=== PATIENT | female | born 1975 | race Caucasian/White ===

== ENCOUNTER 2017-04-21 11:46 | Emergency (ER) | payer SELFPAY ==
[2017-04-21] MEDS ORDERED: oxyCODONE/Acetamin 5/325 MG* TAB PO ONE ×2 (12:00→13:12)
[2017-04-21] MEDS ORDERED: LORazepam TAB(*) 1 MG PO ONE (12:00)
[2017-04-21] MEDS ORDERED: oxyCODONE TAB* 5 MG TAB PO ONE (13:13)
[2017-04-21] MEDS ORDERED: Gabapentin CAP(*) 400 MG PO ONE (13:13)
[2017-04-21 13:35] VITALS: BP 135/86
--- NOTE | 2017-04-21 13:53 | ED ---
Idris Hamilton Alfonso, scribed for Angie Vega MD on 04/21/17 at 1228 . Back Pain - HPI Summary HPI Summary: This patient is a 41 year old F BIBA to [facility] with a chief complaint of constant acute on chronic shooting neck, back, and leg pain worse since getting up today. She states my legs gave out and I fell onto the couch. She was taking klonopin 1 mg TID, Percocet 10 mg QID, gabapentin 400 mg BID, and oxycodone 10 mg BID and recently completed these prescriptions. The patient rates the pain 10/10 in severity. Symptoms alleviated by nothing. Patient reports cough, and bilateral LE numbness. Patient denies recent falls, recent trauma, fever, and chills. She reports her significant other in [place] committed suicide 3 weeks ago. - History of Current Complaint Chief Complaint: EDBackInjuryPain Stated Complaint: MHE/BACK PAIN Time Seen by Provider: 04/21/17 11:52 Hx Obtained From: Patient Onset/Duration: Gradual Onset, Still Present, Worse Since - getting up today. , Other - acute on chronic Onset/Duration: Still Present Timing: Constant Back Pain Location: Is Discrete @ - neck, back, and leg pain Severity Currently: Severe Pain Intensity: 10 Pain Scale Used: 0-10 Numeric Character: Sharp - shooting Alleviating Symptom(s): Nothing Associated Signs And Symptoms: Positive: Other - Patient reports cough, and bilateral LE numbness. Patient denies recent falls, recent trauma, fever, and chills. - Allergies/Home Medications Allergies/Adverse Reactions: Allergies Allergy/AdvReac Type Severity Reaction Status Date / Time Pregabalin [From Lyrica] Allergy Anaphylatic Verified 04/21/17 11:59 Shock Home Medications: Home Medications Albuterol HFA INHALER* [Ventolin HFA Inhaler*] 2 puff INH Q4H PRN 04/21/17 [ History Confirmed 04/21/17] Clonazepam [Klonopin] 1 mg PO TID 04/21/17 [History Confirmed 04/21/17] DULoxetine DR CAP* [Cymbalta CAP*] 60 mg PO DAILY 04/21/17 [History Confirmed ] Folic Acid TAB* [Folvite TAB*] 1 mg PO DAILY 04/21/17 [History Confirmed ] Gabapentin CAP(*) [Neurontin 400 mg CAP(*)] 400 mg PO TID 04/21/17 [History Confirmed 04/21/17] Magnesium 500 mg PO DAILY 04/21/17 [History Confirmed 04/21/17] Multiple Vitamins W/ Minerals [Multivitamin Adults] 1 tab PO DAILY 04/21/17 [ History Confirmed 04/21/17] Thiamine HCl [Thiamine] 100 mg PO DAILY 04/21/17 [History Confirmed 04/21/17] Thiamine HCl [Vitamin B-1] 100 mg PO DAILY 04/21/17 [History Confirmed 04/21/17] hydrOXYzine HCL TAB* [Atarax 25 MG TAB*] 25 mg PO BID 04/21/17 [History Confirmed 04/21/17] oxyCODONE SR TAB(*) [Oxycontin 10 mg (*)] 10 mg PO Q12H PRN 04/21/17 [History Confirmed 04/21/17] oxyCODONE TAB* [Roxycodone TAB 5 mg*] 10 mg PO Q4H PRN 04/21/17 [History Confirmed 04/21/17] traZODone TAB* [Desyrel TAB*] 100 mg PO BEDTIME 04/21/17 [History Confirmed ] PMH/Surg Hx/FS Hx/Imm Hx Endocrine/Hematology History: Denies: Hx Diabetes Cardiovascular History: Reports: Hx Hypertension - TAKES MEDICATION Denies: Hx Pacemaker/ICD Musculoskeletal History: Reports: Hx Back Problems Sensory History: Denies: Hx Hearing Aid Psychiatric History: Reports: Hx Panic Disorder - ANXIETY - Surgical History Surgery Procedure, Year, and Place: 07/03 &05/03 [facility]GERY X2. Infectious Disease History: No Infectious Disease History: Denies: Traveled Outside the [place] in Last 30 Days - Family History Known Family History: Negative: Diabetes - Social History Occupation: Unemployed, Disabled Lives: With Family - Sister Alcohol Use: Occasionally Alcohol Amount: "once a month", hx of alcohol abuse Substance Use Type: Reports: None Smoking Status (MU): Heavy Every Day Tobacco Smoker Review of Systems Negative: Fever, Chills Positive: Cough Positive: Other - constant acute on chronic shooting neck, back, and leg pain; negative recent falls, recent trauma Neurological: Other - bilateral LE numbness All Other Systems Reviewed And Are Negative: Yes Physical Exam - Summary Physical Exam Summary: General: Well appearing, no pain distress. Skin: Warm, Skin Color Reflects Adequate Perfusion, Dry Eyes: EOMI, JASMYNE ENT: Pharynx normal, TMs normal Neck: Supple, nontender Respiratory: CTA, breath sounds present, no rhonchi, no wheezes, no rales Cardiovascular: RRR, no murmur, no rub, no gallop Abdomen: Soft, nontender, Non-distended, no guarding, no rebound Bowel: Present Musculoskeletal: FAHAD. No edema. Diffuse pain at baseline and increased pain in left and right thigh. Normal DTR. Normal UE strength. 4/5 strength at hip flexors which she explains is her normal. Neuro: Sensory/motor intact at baseline. Cannot do dorsal flexion of both toes which she explains is her baseline. A&Ox3, CN intact 2-12 Psych: Affect/mood appropriate Triage Information Reviewed: Yes Vital Signs On Initial Exam: Initial Vitals Temp Pulse Resp BP Pulse Ox 99.1 F 87 22 157/97 97 04/21/17 11:54 04/21/17 11:54 04/21/17 11:54 04/21/17 11:54 04/21/17 11:54 Vital Signs Reviewed: Yes - [place] Coma Scale Coma Scale Total: 15 Diagnostics - Vital Signs Vital Signs Temp Pulse Resp BP Pulse Ox 04/21/17 12:18 18 04/21/17 11:54 99.1 F 87 22 157/97 97 - Laboratory Lab Statement: Any lab studies that have been ordered have been reviewed, and results considered in the medical decision making process. Back Pain Course/Dx - Course Course Of Treatment: this is a 41 yo female who reports she is new to the area with extensive history of lumbar, and cervical neck pain with surgeries that she says she needs more surgery. [place] after her boyfriend committed suicide where she reports she was on termination clerk pain meds. She has asked that I refill her pain meds while she attempts to get into an md here. She denies any opiate disorder history. her exam shows no trauma (and pt denies any trauma). She has diffuse spinal tenderness with normal dtr's throughout. she deneis ivda, or diabetes or cancer hx, her strength and sensation in her upper exts is normal. In her lower ext she reports she has long standing neuropathy with decreased sensation and that she walks with a cane because of this. She is unable to dorsiflex both great toes and has decreased hip flexion but reports this is her norm - Diagnoses Provider Diagnoses: Chronic pain Discharge - Discharge Plan Condition: Stable Disposition: HOME Prescriptions: Gabapentin CAP(*) [Neurontin 300 CAP(*)] 400 mg PO BID #6 cap Oxycodone TAB(NF) [Oxycodone HCl 10 MG] 10 mg PO BID PRN #6 tab MDD 2 PRN Reason: Pain clonazePAM TAB(*) [KlonoPIN TAB(*)] 1 mg PO TID PRN #9 tab MDD 3 PRN Reason: Pain oxyCODONE/Acetamin 10/325(NF) [Percocet 10/325 (NF)] 1 tab PO Q6HR PRN #9 tab MDD 4 PRN Reason: Pain Patient Education Materials: Chronic Pain (ED) Referrals: Iveth Yan MD [Primary Care Provider] - 3 Days Additional Instructions: RETURN TO THE EMERGENCY DEPARTMENT FOR CHANGING OR WORSENING SYMPTOMS. The documentation as recorded by the Idris delgado Alfonso accurately reflects the service I personally performed and the decisions made by , Angie Vega MD.
== END 2017-04-21 14:16 | disposition home or self-care (01) ==
LOC: ED 11:46
DX: G89.29 Other chronic pain (principal); M54.2 Cervicalgia; M54.9 Dorsalgia, unspecified; M79.652 Pain in left thigh; M79.651 Pain in right thigh; R20.0 Anesthesia of skin; R05 Cough; I10 Essential (primary) hypertension; F41.0 Panic disorder [episodic paroxysmal anxiety]; F17.210 Nicotine dependence, cigarettes, uncomplicated
CPT/HCPCS: 99283; A9270-GY

== ENCOUNTER 2017-05-15 02:48 | Emergency (ER) | payer SELFPAY ==
[2017-05-15] MEDS ORDERED: LORazepam TAB(*) 1 MG PO ONE (03:40)
[2017-05-15 06:56] LABS: Hematocrit 37 % (35-47); Hemoglobin 12.1 g/dl (12.0-16.0); Mean Corpuscular HGB Conc 33 g/dl (31-36); Mean Corpuscular Hemoglobin 28 pg (27-31); Mean Corpuscular Volume 83 fL (80-97); Mean Platelet Volume 8 um3 (7.4-10.4); Red Cell Distribution Width 20 % (10.5-15)
--- NOTE | 2017-05-15 06:58 | ED ---
Loli Hamilton Edward, scribed for Rabia Skelton MD on 05/15/17 at 0251 . Psychiatric Complaint - HPI Summary HPI Summary: 42 y/o female BIBA c/o depression and anxiety. Pt's children called the ambulance stating that the pt was hallucinating; however, the pt denies hallucinations. The symptoms are not aggravated or alleviated by anything. Pt recently moved from [place]. PMHx anxiety, ADD, depression, PTSD. Sx 2 neck surgeries. Associated sx: back pain. - History Of Current Complaint Hx Obtained From: Patient Onset/Duration: Still Present Character: Depressed, Anxious Aggravating Factor(s): Nothing Alleviating Factor(s): Nothing Associated Signs And Symptoms: Positive: Hallucinating - Allergies/Home Medications Allergies/Adverse Reactions: Allergies Allergy/AdvReac Type Severity Reaction Status Date / Time Pregabalin [From Lyrica] Allergy Anaphylatic Verified 04/21/17 11:59 Shock PMH/Surg Hx/FS Hx/Imm Hx Previously Healthy: No Endocrine/Hematology History: Denies: Hx Diabetes Cardiovascular History: Reports: Hx Hypertension - TAKES MEDICATION Denies: Hx Pacemaker/ICD Musculoskeletal History: Reports: Hx Back Problems Sensory History: Denies: Hx Hearing Aid Psychiatric History: Reports: Hx Panic Disorder - ANXIETY - Surgical History Surgery Procedure, Year, and Place: 07/03 &05/03 [facility] SURGERY X2. - Family History Known Family History: Negative: Diabetes - Social History Alcohol Use: Occasionally Alcohol Amount: "once a month", hx of alcohol abuse Hx Substance Use: No Substance Use Type: Reports: None Hx Tobacco Use: Yes Smoking Status (MU): Heavy Every Day Tobacco Smoker Review of Systems Constitutional: Negative Eyes: Negative ENT: Negative Cardiovascular: Negative Respiratory: Negative Gastrointestinal: Negative Genitourinary: Negative Positive: Arthralgia - Back pain Skin: Negative Neurological: Negative Positive: Anxious, Depressed All Other Systems Reviewed And Are Negative: No Physical Exam - Summary Physical Exam Summary: Appearance: Alert, conversive, nontoxic appearing, tearful. Skin: Warm, dry, no mottling, no rashes, no contusions HEENT: EOMI, PERRL, moist mucous membranes Neck: No masses on the neck, supple Respiratory: Clear to auscultation, breath sounds present, no rales, no rhonchi , no wheezes Cardiovascular: RRR, pulses are symmetrical in both lower and upper extremities Abdomen: Soft, non-tender Bowel Sounds: Present Musculoskeletal: No CVA tenderness, no obvious deformity, moving all extremities in a grossly normal manner Neurological: A&Ox3, CN II-XII Intact, moving all extremities symmetrically Psychiatric: Tearful, anxious, difficulty making eye contact. Poor insight and poor judgment. Triage Information Reviewed: Yes Vital Signs On Initial Exam: Initial Vitals Temp Pulse Resp BP Pulse Ox 99.2 F 105 20 132/86 99 05/15/17 02:58 05/15/17 02:58 05/15/17 02:58 05/15/17 02:58 05/15/17 02:58 Vital Signs Reviewed: Yes Diagnostics - Vital Signs Vital Signs Temp Pulse Resp BP Pulse Ox 05/15/17 04:10 18 05/15/17 02:58 99.2 F 105 20 132/86 99 - Laboratory Lab Results: Lab Results 05/15/17 Range/Units 06:39 WBC 11.0 H (3.5-10.8) 10^3/ul RBC 4.40 (4.0-5.4) 10^6/ul Hgb 12.1 (12.0-16.0) g/dl Hct 37 (35-47) % MCV 83 (80-97) fL MCH 28 (27-31) pg MCHC 33 (31-36) g/dl RDW 20 H (10.5-15) % Plt Count 236 (150-450) 10^3/ul MPV 8 (7.4-10.4) um3 Neut % (Auto) 64.3 (38-83) % Lymph % (Auto) 26.2 (25-47) % [place] % (Auto) 8.3 (1-9) % Eos % (Auto) 0.2 (0-6) % Baso % (Auto) 1.0 (0-2) % Absolute Neuts (auto) 7.1 (1.5-7.7) 10^3/ul Absolute Lymphs (auto) 2.9 (1.0-4.8) 10^3/ul Absolute Monos (auto) 0.9 H (0-0.8) 10^3/ul Absolute Eos (auto) 0 (0-0.6) 10^3/ul Absolute Basos (auto) 0.1 (0-0.2) 10^3/ul Absolute Nucleated RBC 0 10^3/ul Nucleated RBC % 0 Result Diagrams: 05/15/17 06:39 Lab Statement: Any lab studies that have been ordered have been reviewed, and results considered in the medical decision making process. Course/Dx - Differential Dx/Clinical Impression Provider Diagnosis: Anxiety Discharge - Discharge Plan Condition: Stable Disposition: OTHER Discharge Disposition Comment: signed out to Dr. Norwood Referrals: Iveth Yan MD [Primary Care Provider] - The documentation as recorded by the Loli delgado Edward accurately reflects the service I personally performed and the decisions made by Costa torres Norma, MD.
[2017-05-15 07:08] LABS: ALT 10 U/L (7-52); AST 16 U/L (13-39); Albumin 3.7 g/dL (3.2-5.2); Alkaline Phosphatase 126 U/L (34-104); Anion Gap 9 mmol/L (2-11); CO2 Carbon Dioxide 25 mmol/L (22-32); Calcium 9.4 mg/dL (8.6-10.3); Chloride 99 mmol/L (101-111); EGFR African American 168.5 (>60); Globulin 3.7 g/dL (2-4); Glucose 88 mg/dL (70-100); Magnesium 1.3 mg/dL (1.9-2.7); Potassium 3.3 mmol/L (3.5-5.0); Sodium 133 mmol/L (133-145); Total Protein 7.4 g/dL (6.4-8.9)
[2017-05-15 07:43] LABS: Acetaminophen < 15 mcg/mL; Alcohol < 10 mg/dL (<10); Salicylate < 2.50 mg/dL (<30)
[2017-05-15 08:15] LABS: TSH (Thyroid Stimulating Horm) 5.61 mcIU/mL (0.34-5.60)
[2017-05-15 08:42] LABS: BUN/Creatinine Ratio 13.7 (8-20); Blood Urea Nitrogen 7 mg/dL (6-24)
[2017-05-15] MEDS ORDERED: Ibuprofen TAB* 800 MG PO ONE (11:22)
[2017-05-15 12:44] LABS: Urine Bacteria Absent (Absent); Urine Bilirubin Negative (Negative); Urine Glucose Negative (Negative); Urine Nitrite Negative (Negative)
[2017-05-15 12:53] LABS: Benzodiazepine Urine Screen None Detected (None Detect)
[2017-05-15 13:48] VITALS: BP 130/72
--- NOTE | 2017-05-15 18:38 | ED ---
Bhupinder Hamilton Angela, scribed for Rosa Norwood MD on 05/15/17 at 1548 . Progress - Progress Note Progress Note: This pt was signed out by Dr. Skelton, pending disposition, awaiting MHE. Pt was seen and evaluated by Dr. Rowley, he recommends discharge. Pt will be discharged with outpatient follow up from counseling and social work. Pt will be discharged to home in stable condition with a diagnosis of substance abuse and depression. Course/Dx - Diagnoses Provider Diagnoses: Substance abuse, Depression The documentation as recorded by the Bhupinder delgado Angela accurately reflects the service I personally performed and the decisions made by , Rosa Norwood MD.
== END 2017-05-15 15:55 | disposition home or self-care (01) ==
LOC: ED 02:48
DX: F19.10 Other psychoactive substance abuse, uncomplicated (principal); F32.9 Major depressive disorder, single episode, unspecified
CPT/HCPCS: 36415; 80053; 80307; 80320; 80329; 81003; 81015; 83735; 84443; 85025; 87086; 99283; A9270-GY; G0480

== ENCOUNTER 2017-05-26 19:28 | Inpatient (IN) | payer MEDICAID, OTHER ==
[2017-05-26] MEDS ORDERED: Gabapentin CAP(*) 400 MG PO ONE (21:28)
--- NOTE | 2017-05-26 21:38 | ED ---
Psychiatric Complaint - HPI Summary HPI Summary: 42F presents with increasing depression. She has history of chronic pain and weakness that is unchanged. She just moved from [place]. She has history of chronic pain that takes pain medication for but has ran out and does not have a primary here. She is here but she wants to get linked with someone from mental health. She states has history of PTSD and depression. Her boyfriend committed suicide in [place]. She denies any si/hi. - History Of Current Complaint Chief Complaint: EDMentalHealth Time Seen by Provider: 05/26/17 21:13 - Allergies/Home Medications Allergies/Adverse Reactions: Allergies Allergy/AdvReac Type Severity Reaction Status Date / Time Pregabalin [From Lyrica] Allergy Anaphylatic Verified 04/21/17 11:59 Shock PMH/Surg Hx/FS Hx/Imm Hx Endocrine/Hematology History: Denies: Hx Diabetes Cardiovascular History: Reports: Hx Hypertension - TAKES MEDICATION Denies: Hx Pacemaker/ICD Musculoskeletal History: Reports: Hx Back Problems Sensory History: Denies: Hx Hearing Aid Psychiatric History: Reports: Hx Panic Disorder - ANXIETY Denies: Hx of Violent Episodes Against Others - Surgical History Surgery Procedure, Year, and Place: 07/03 &05/03 [facility] SURGERY X2. - Immunization History Date of Tetanus Vaccine: utd Date of Influenza Vaccine: none Infectious Disease History: No Infectious Disease History: Denies: Traveled Outside the [place] in Last 30 Days - Family History Known Family History: Negative: Diabetes - Social History Alcohol Use: Weekly Alcohol Amount: 1/5 a week Hx Substance Use: No Substance Use Type: Reports: Marijuana Substance Use Comment - Amount & Last Used: used a couple weeks ago Hx Tobacco Use: Yes Smoking Status (MU): Heavy Every Day Tobacco Smoker Review of Systems Negative: Fever Negative: Chest Pain Negative: Shortness Of Breath Positive: Weakness Positive: Depressed All Other Systems Reviewed And Are Negative: Yes Physical Exam Triage Information Reviewed: Yes Vital Signs On Initial Exam: Initial Vitals Temp Pulse Resp BP Pulse Ox 97 F 100 16 92/74 98 05/26/17 19:33 05/26/17 19:33 05/26/17 19:33 05/26/17 19:33 05/26/17 19:33 Vital Signs Reviewed: Yes Appearance: Positive: Well-Appearing Skin: Positive: Warm, Dry Head/Face: Positive: Normal Head/Face Inspection Eyes: Positive: Normal, EOMI, Conjunctiva Clear ENT: Positive: Normal ENT inspection, Pharynx normal, TMs normal Respiratory/Lung Sounds: Positive: Clear to Auscultation, Breath Sounds Present Cardiovascular: Positive: Normal, RRR Abdomen Description: Positive: Nontender, Soft Bowel Sounds: Positive: Present Musculoskeletal: Positive: Normal Neurological: Positive: Normal Psychiatric: Positive: Normal - [place] Coma Scale Coma Scale Total: 15 Diagnostics - Vital Signs Vital Signs Temp Pulse Resp BP Pulse Ox 05/26/17 19:33 97 F 100 16 92/74 98 - Laboratory Result Diagrams: 05/26/17 22:00 05/26/17 22:00 Lab Statement: Any lab studies that have been ordered have been reviewed, and results considered in the medical decision making process. Course/Dx - Course Course Of Treatment: 42F presents with increasing depression. She has history of chronic pain and weakness that is unchanged. She just moved from [place]. She has history of chronic pain that takes pain medication for but has ran out and does not have a primary here. She is here but she wants to get linked with someone from mental health. She states has history of PTSD and depression. Her boyfriend committed suicide in [place]. She denies any si/hi. normal PE. is medically clear for MHE. signed out to dr norwood pending MHE - Differential Dx/Clinical Impression Differential Diagnosis/HQI/PQRI: Positive: Anxiety, Depression, Other - chronic pain Provider Diagnosis: Depression Discharge - Discharge Plan Condition: Stable Disposition: OTHER Discharge Disposition Comment: signed out to Dr Norwood pending MHE Referrals: No Primary Care Phys,NOPCP [Primary Care Provider] -
[2017-05-26 22:12] LABS: ABS Basophils 0.1 10^3/ul (0-0.2); ABS Eosinophils 0 10^3/ul (0-0.6); ABS Lymphocytes 2.1 10^3/ul (1.0-4.8); ABS Monocytes 0.6 10^3/ul (0-0.8); ABS Neutrophils 2.6 10^3/ul (1.5-7.7); ABS Nucleated RBC 0.01 10^3/ul; Eosinophil % 0.6 % (0-6); Hematocrit 40 % (35-47); Hemoglobin 13.5 g/dl (12.0-16.0); Lymphocyte % 38.2 % (25-47); Mean Corpuscular HGB Conc 34 g/dl (31-36); Mean Corpuscular Hemoglobin 29 pg (27-31); Mean Corpuscular Volume 84 fL (80-97); Mean Platelet Volume 8 um3 (7.4-10.4); Nucleated Red Blood Cells % 0.2; Platelet Count 376 10^3/ul (150-450); Red Blood Count 4.75 10^6/ul (4.0-5.4); Red Cell Distribution Width 20 % (10.5-15); White Blood Count 5.4 10^3/ul (3.5-10.8)
[2017-05-26 22:33] LABS: EGFR Non-African American 106.5 (>60)
[2017-05-26] MEDS ORDERED: Magnesium Oxide TAB* 400 MG PO ONE (22:51)
[2017-05-27 04:12] LABS: Urine Appearance Cloudy; Urine Blood Negative (Negative); Urine Color Amber; Urine Ketones Trace (Negative); Urine Protein 1+(30 mg/dL) (Negative); Urine Specific Gravity 1.026 (1.010-1.030); Urine Urobilinogen Positive (Negative)
[2017-05-27] MEDS ORDERED: Mouth Piece, Nicotine* 1 EACH CARTRIDGE INH SCH (05:29)
[2017-05-27] MEDS ORDERED: Acetaminophen TAB* 325 MG PO PRN (05:29)
[2017-05-27] MEDS ORDERED: Al Hydrox/Mg Hydrox/Simet LIQ* 30 ML UDC PO PRN (05:29)
[2017-05-27] MEDS ORDERED: Albuterol HFA INHALER* 8 gm MDI INH PRN (05:31)
[2017-05-27] MEDS: Nicotine Inhaler* 10 MG AMP INH PRN ×2 (08:25→22:23)
[2017-05-27] MEDS: Multivitamins/Minerals TAB PO SCH (08:26)
[2017-05-27] MEDS: Folic Acid TAB* 1 MG PO SCH (08:27)
[2017-05-27] MEDS: DULoxetine DR CAP* 60 MG CAP.DR PO SCH (08:27)
[2017-05-27] MEDS: hydrOXYzine HCL TAB* 25 MG PO SCH ×2 (08:27→21:42)
[2017-05-27] MEDS: Gabapentin CAP(*) 400 MG PO SCH ×3 (08:27→21:40)
[2017-05-27] MEDS: Thiamine TAB* 100 MG TAB PO SCH (08:28)
[2017-05-27] MEDS: MAGNESIUM 500 MG PO SCH (08:29)
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
[2017-05-27] MEDS: Diclofenac Sodium EC TAB* 25 MG PO SCH (21:41)
[2017-05-27] MEDS: traZODone TAB* 100 MG PO SCH (21:42)
[2017-05-27] MEDS: cloNIDine TAB* 0.1 MG PO PRN (21:43)
[2017-05-28] MEDS: Diclofenac Sodium EC TAB* 25 MG PO SCH ×2 (08:28→20:40)
[2017-05-28] MEDS: Folic Acid TAB* 1 MG PO SCH (08:29)
[2017-05-28] MEDS: Thiamine TAB* 100 MG TAB PO SCH (08:29)
[2017-05-28] MEDS: DULoxetine DR CAP* 60 MG CAP.DR PO SCH (08:29)
[2017-05-28] MEDS: Multivitamins/Minerals TAB PO SCH (08:29)
[2017-05-28] MEDS: Gabapentin CAP(*) 400 MG PO SCH ×3 (08:29→20:39)
[2017-05-28] MEDS: hydrOXYzine HCL TAB* 25 MG PO SCH ×2 (08:29→20:41)
[2017-05-28] MEDS ORDERED: Influenza VAC *QUAD* 2017-18* 0.5 ML SYRINGE IM ONE (09:00)
[2017-05-28] MEDS ORDERED: Pneumococcal *Vac Polyvalent 0.5 ML VIAL IM ONE (09:00)
[2017-05-28] MEDS: cloNIDine TAB* 0.1 MG PO PRN (14:39)
[2017-05-28] MEDS: MAGNESIUM 500 MG PO SCH (15:30)
[2017-05-28] MEDS: traZODone TAB* 100 MG PO SCH (20:41)
[2017-05-29] MEDS: Multivitamins/Minerals TAB PO SCH (08:22)
[2017-05-29] MEDS: DULoxetine DR CAP* 60 MG CAP.DR PO SCH (08:22)
[2017-05-29] MEDS: Thiamine TAB* 100 MG TAB PO SCH (08:23)
[2017-05-29] MEDS: Folic Acid TAB* 1 MG PO SCH (08:23)
[2017-05-29] MEDS: Gabapentin CAP(*) 400 MG PO SCH ×3 (08:23→21:07)
[2017-05-29] MEDS: hydrOXYzine HCL TAB* 25 MG PO SCH ×2 (08:23→21:08)
[2017-05-29] MEDS: Diclofenac Sodium EC TAB* 25 MG PO SCH ×2 (08:24→21:07)
[2017-05-29] MEDS: cloNIDine TAB* 0.1 MG PO PRN ×3 (08:24→21:10)
[2017-05-29] MEDS: MAGNESIUM 500 MG PO SCH (08:25)
[2017-05-29] MEDS: Nicotine Inhaler* 10 MG AMP INH PRN (13:48)
--- NOTE | 2017-05-29 17:16 | PN ---
Subjective - Subjective Service Type: 05118 Hosp care 15 min low complexity Subjective: Patient has been minimally participatory on the milieu, coming out for meals but not attending groups or allowing therapists from Rec, PT or OT to work with her. She is highly somatic and fixated on pain medications. She offers the [facility] in [place] as a place where she has received opioids, so that we might confirm her prescription history. The [employer] website indicates that this was prescribed by our ED provider, Dr. Peterson, on April 21. Interestingly, according to the [facility] pharmacist, the patient filled the oxycodone and oxycontin, but not the clonazepam and gabapentin. The patient is currently on diclofenac. She's refusing Tylenol because of fatty liver, but this did not prevent her from taking oxycontin, which contains tylenol. Patient is allowing to get her insurance switched to [employer]. She continues to deny SI. She still cannot recall the names of any of her providers or pharmacies in [place]. Objective - Appearance Appearance: Well Developed/Nourished Dysmorphic Features: No Hygiene: Normal Grooming: Fairly Well Kept - Behavior Psychomotor Activities: Normal Exhibits Abnormal Movement: No - Attitude and Relatedness Attitude and Relatedness: Cooperative Eye Contact: Fair - Speech Quality: Unpressured Latencies: Normal Quantity: Appropriate - Mood Patient's Decription of Mood: "Okay" - Affect Observed Affect: Fair Affect Consistent with: Dysphoria - Thought Process Patient's Thought Process: Coherent Thought Content: No Passive Wish, No Suicidal Planning, No Homicidal Ideation, No Paranoid Ideation - Sensorium Experiencing Hallucinations: No, Sensorium is Clear Type of Hallucinations: Visual: No, Auditory: No, Command: No - Level of Consciousness Level of Consciousness: Alert Orientation: Yes Intact, Yes Orientated to Time, Yes Orientated to Place, Yes Orientated to Person - Impulse Control Impulse Control: Tenuous - Insight and Judgement Insight and Judgement: Fair - Group Participation Particating in Group Activities: No - Medication Management Medication Management Adherence: Yes Assessment - Assessment Merits Inpatient Hospitalization: Consolid[facility] Improvements, Pending Safe DC Plan Inpatient DSM-IV Dx: MDD, recurrent, severe without psychotic features Clinical Impression: 42 y.o. single, white female with a history of alcohol use disorder and recurrent depression, who is also suffering from bereavement from the recent suicidal of her boyfriend of 17 years, who presented to the ED on a voluntary basis seeking admission to the unit for increasing depression, increasing alcohol consumption, somatic pain and inability to care for herself in the outpatient environment. Plan - Plan Treatment Plan: Name: RUMA SAM Birthdate: 1975 [id number] We have resumed outpatient medications, including duloxetine 60mg PO qday and trazodone 100mg PO qhs. For pain, we are providing gabapentin 400mg PO TID, prn tylenol and scheduled diclofenac 50mg PO BID. Will increase diclofenac to TID dosing. Patient encouraged to be more participatory on the unit. Continue inpatient level services. Continued Medication Management: Continue Outpt Medication Medications: Current Medications Acetaminophen (Tylenol Tab*) 650 mg PO Q4H PRN PRN Reason: PAIN or TEMP > 101 F Al Hydrox/Mg Hydrox/Simethicone (Maalox Plus*) 30 ml PO Q4H PRN PRN Reason: INDIGESTION Albuterol (Ventolin Hfa Inhaler*) 2 puff INH Q4H PRN PRN Reason: WHEEZING Clonidine HCl (Catapres Tab*) 0.1 mg PO TID PRN PRN Reason: ANXIETY Last Admin: 05/29/17 13:49 Dose: 0.1 mg Device (Nicotine Mouth Piece*) 1 each INH .[facility] Last Admin: 05/27/17 08:25 Dose: 1 each Diclofenac Sodium (Voltaren Ec Tab*) 50 mg PO BID [facility] Last Admin: 05/29/17 08:24 Dose: 50 mg Duloxetine HCl (Cymbalta Cap*) 60 mg PO DAILY [facility] Last Admin: 05/29/17 08:22 Dose: 60 mg Folic Acid (Folvite Tab*) 1 mg PO DAILY [facility] Last Admin: 05/29/17 08:23 Dose: 1 mg Gabapentin (Neurontin Cap(*)) 400 mg PO TID [facility] Last Admin: 05/29/17 13:48 Dose: 400 mg Hydroxyzine HCl (Atarax Tab*) 25 mg PO BID [facility] Last Admin: 05/29/17 08:23 Dose: 25 mg Magnesium Oxide (Magox 400 Tab*) 400 mg PO DAILY [facility] Multivitamins/Minerals (Theragran/Minerals Tab*) 1 tab PO DAILY [facility] Last Admin: 05/29/17 08:22 Dose: 1 tab Nicotine (Nicotine Inhaler*) 10 mg INH Q2H PRN PRN Reason: CRAVING Last Admin: 05/29/17 13:48 Dose: 10 mg Nicotine Polacrilex (Nicotine Gum*) 2 mg PO Q2H PRN PRN Reason: CRAVING Thiamine HCl (Vitamin B-1 Tab*) 100 mg PO DAILY [facility] Last Admin: 05/29/17 08:23 Dose: 100 mg Trazodone HCl (Desyrel Tab*) 100 mg PO BEDTIME [facility] Last Admin: 05/28/17 20:41 Dose: 100 mg - Discharge Plan Discharge Plan: Inpatient Hospitalization
[2017-05-29] MEDS: Lidocaine PATCH 5%* 1 PATCH TRANSDERM SCH (18:14)
[2017-05-29] MEDS: traZODone TAB* 100 MG PO SCH (21:08)
[2017-05-30] MEDS: Lidocaine Patch REMOVE* 1 NOTE MISC SCH ×2 (06:15→20:53)
[2017-05-30] MEDS: Nicotine GUM* 2 MG PO PRN (07:03)
[2017-05-30] MEDS: hydrOXYzine HCL TAB* 25 MG PO SCH ×2 (08:17→20:52)
[2017-05-30] MEDS: DULoxetine DR CAP* 60 MG CAP.DR PO SCH (08:17)
[2017-05-30] MEDS: Thiamine TAB* 100 MG TAB PO SCH (08:17)
[2017-05-30] MEDS: Folic Acid TAB* 1 MG PO SCH (08:17)
[2017-05-30] MEDS: Gabapentin CAP(*) 400 MG PO SCH ×2 (08:18→13:25)
[2017-05-30] MEDS: cloNIDine TAB* 0.1 MG PO PRN ×3 (08:18→20:51)
[2017-05-30] MEDS: Multivitamins/Minerals TAB PO SCH (08:18)
[2017-05-30] MEDS: Magnesium Oxide TAB* 400 MG PO SCH (08:18)
[2017-05-30] MEDS: Diclofenac Sodium EC TAB* 25 MG PO SCH ×3 (08:19→20:51)
[2017-05-30] MEDS: Lidocaine PATCH 5%* 1 PATCH TRANSDERM SCH (08:20)
--- NOTE | 2017-05-30 11:35 | PN ---
[facility]: Group Therapy Note - Service Type Service Type: [id number] Group Psychotherapy - Cognitive Behavioral Group Therapy ( CBT):Patient was attentive and participatory in CBT programming this morning, and remained in good behavioral control. Patient expressed positive insights regarding relevant treatment interventions and goals.
--- NOTE | 2017-05-30 16:46 | PN ---
Subjective - Subjective Service Type: 96709 Hosp care 15 min low complexity Subjective: Ruma continues to complain of back/neck pain and anxiety, but denies SI. She has gone to some group programming today, but has left groups early complaining of somatic distress. She is requesting increases in gabapentin and hydroxyzine. She offers the name of a prior primary care provider in [place], named Dr. Iveth Yan. I called Dr. Yan's office and received a voicemail from that clinician in return, indicating that Ruma's case was terminated in April of 2015 due to several missed appointments. Dr. Yan made it clear that she was not willing to reassume care of Ms. Sam due to the missed appointments. Objective - Appearance Appearance: Well Developed/Nourished Dysmorphic Features: No Hygiene: Normal Grooming: Fairly Well Kept - Behavior Psychomotor Activities: Normal Exhibits Abnormal Movement: No - Attitude and Relatedness Attitude and Relatedness: Cooperative Eye Contact: Fair - Speech Quality: Unpressured Latencies: Normal Quantity: Appropriate - Mood Patient's Decription of Mood: "Anxious" - Affect Observed Affect: Fair Affect Consistent with: Euthymia - Thought Process Patient's Thought Process: Coherent Thought Content: No Passive Wish, No Suicidal Planning, No Homicidal Ideation, No Paranoid Ideation - Sensorium Experiencing Hallucinations: No, Sensorium is Clear Type of Hallucinations: Visual: No, Auditory: No, Command: No - Level of Consciousness Level of Consciousness: Alert Orientation: Yes Intact, Yes Orientated to Time, Yes Orientated to Place, Yes Orientated to Person - Impulse Control Impulse Control: Tenuous - Insight and Judgement Insight and Judgement: Fair - Group Participation Particating in Group Activities: No - Medication Management Medication Management Adherence: Yes Assessment - Assessment Merits Inpatient Hospitalization: [facility], For Discharge Planning Inpatient DSM-IV Dx: MDD, recurrent, severe without psychotic features Clinical Impression: 42 y.o. single, white female with a history of alcohol use disorder and recurrent depression, who is also suffering from bereavement from the recent suicidal of her boyfriend of 17 years, who presented to the ED on a voluntary basis seeking admission to the unit for increasing depression, increasing alcohol consumption, somatic pain and inability to care for herself in the outpatient environment. Plan - Plan Treatment Plan: Name: RUMA SAM Birthdate: 1975 [id number] We have resumed outpatient medications, including duloxetine 60mg PO qday, hydroxyzine 25mg PO BID and trazodone 100mg PO qhs. For pain, we are providing gabapentin 400mg PO TID, prn tylenol and scheduled diclofenac 50mg PO BID. Will increase gabapentin to 600mg PO TID and hydroxyzine to 50mg PO BID. Patient encouraged to be more participatory on the unit. Continue inpatient level services while we try to connect her with local outpatient care. Continued Medication Management: Start Medication Medications: Current Medications Acetaminophen (Tylenol Tab*) 650 mg PO Q4H PRN PRN Reason: PAIN or TEMP > 101 F Al Hydrox/Mg Hydrox/Simethicone (Maalox Plus*) 30 ml PO Q4H PRN PRN Reason: INDIGESTION Albuterol (Ventolin Hfa Inhaler*) 2 puff INH Q4H PRN PRN Reason: WHEEZING Clonidine HCl (Catapres Tab*) 0.1 mg PO TID PRN PRN Reason: ANXIETY Last Admin: 05/30/17 13:24 Dose: 0.1 mg Device (Nicotine Mouth Piece*) 1 each INH [facility] Last Admin: 05/27/17 08:25 Dose: 1 each Diclofenac Sodium (Voltaren Ec Tab*) 50 mg PO TID [facility] Last Admin: 05/30/17 13:25 Dose: 50 mg Duloxetine HCl (Cymbalta Cap*) 60 mg PO DAILY [facility] Last Admin: 05/30/17 08:17 Dose: 60 mg Folic Acid (Folvite Tab*) 1 mg PO DAILY [facility] Last Admin: 05/30/17 08:17 Dose: 1 mg Lidocaine (Lidoderm 5% Patch*) 1 patch TRANSDERM DAILY [facility] Last Admin: 05/30/17 08:20 Dose: 1 patch Magnesium Oxide (Magox 400 Tab*) 400 mg PO DAILY [facility] Last Admin: 05/30/17 08:18 Dose: 400 mg Multivitamins/Minerals (Theragran/Minerals Tab*) 1 tab PO DAILY [facility] Last Admin: 05/30/17 08:18 Dose: 1 tab Nicotine (Nicotine Inhaler*) 10 mg INH Q2H PRN PRN Reason: CRAVING Last Admin: 05/29/17 13:48 Dose: 10 mg Nicotine Polacrilex (Nicotine Gum*) 2 mg PO Q2H PRN PRN Reason: CRAVING Last Admin: 05/30/17 07:03 Dose: 2 mg Pharmacy Profile Note (Lidocaine Patch Remove*) 1 note N/A 2100 [facility] Last Admin: 05/30/17 06:15 Dose: 1 note Thiamine HCl (Vitamin B-1 Tab*) 100 mg PO DAILY [facility] Last Admin: 05/30/17 08:17 Dose: 100 mg Trazodone HCl (Desyrel Tab*) 100 mg PO BEDTIME [facility] Last Admin: 05/29/17 21:08 Dose: 100 mg - Discharge Plan Discharge Plan: Inpatient Hospitalization
[2017-05-30] MEDS: traZODone TAB* 100 MG PO SCH (20:52)
[2017-05-30] MEDS: Gabapentin CAP(*) 300 MG PO SCH (20:52)
[2017-05-31] MEDS: Nicotine GUM* 2 MG PO PRN (06:05)
[2017-05-31] MEDS: Gabapentin CAP(*) 300 MG PO SCH ×3 (07:28→21:48)
[2017-05-31] MEDS: DULoxetine DR CAP* 60 MG CAP.DR PO SCH (07:28)
[2017-05-31] MEDS: cloNIDine TAB* 0.1 MG PO PRN ×3 (07:28→21:49)
[2017-05-31] MEDS: Folic Acid TAB* 1 MG PO SCH (07:28)
[2017-05-31] MEDS: Magnesium Oxide TAB* 400 MG PO SCH (07:28)
[2017-05-31] MEDS: Multivitamins/Minerals TAB PO SCH (07:28)
[2017-05-31] MEDS: Lidocaine PATCH 5%* 1 PATCH TRANSDERM SCH (07:29)
[2017-05-31] MEDS: Thiamine TAB* 100 MG TAB PO SCH (07:29)
[2017-05-31] MEDS: hydrOXYzine HCL TAB* 25 MG PO SCH ×2 (07:29→21:49)
[2017-05-31] MEDS: Diclofenac Sodium EC TAB* 25 MG PO SCH ×2 (07:31→13:41)
--- NOTE | 2017-05-31 14:58 | PN ---
Subjective - Subjective Service Type: 05640 Hosp care 15 min low complexity Subjective: Patient upset that more is not being done for her pain. Remains highly somatic. Complaining of new-onset bilateral ankle edema that she attributes to diclofenac. Minimal participation in group programming. Still denies SI but remains depressed. Objective - Appearance Appearance: Well Developed/Nourished Dysmorphic Features: No Hygiene: Normal Grooming: Fairly Well Kept - Behavior Psychomotor Activities: Abnormal-Decreased Exhibits Abnormal Movement: No - Attitude and Relatedness Attitude and Relatedness: Cooperative Eye Contact: Fair - Speech Quality: Unpressured Latencies: Normal Quantity: Appropriate - Mood Patient's Decription of Mood: "Anxious" - Affect Observed Affect: Tense Affect Consistent with: Dysphoria - Thought Process Patient's Thought Process: Coherent Thought Content: No Passive Wish, No Suicidal Planning, No Homicidal Ideation, No Paranoid Ideation - Sensorium Experiencing Hallucinations: No, Sensorium is Clear Type of Hallucinations: Visual: No, Auditory: No, Command: No - Level of Consciousness Level of Consciousness: Alert Orientation: Yes Intact, Yes Orientated to Time, Yes Orientated to Place, Yes Orientated to Person - Impulse Control Impulse Control: Tenuous - Insight and Judgement Insight and Judgement: Fair - Group Participation Particating in Group Activities: Yes - Medication Management Medication Management Adherence: Yes Assessment - Assessment Merits Inpatient Hospitalization: Consolidate Improvements, Pending Safe DC Plan Inpatient DSM-IV Dx: MDD, recurrent, severe without psychotic features Clinical Impression: 42 y.o. single, white female with a history of alcohol use disorder and recurrent depression, who is also suffering from bereavement from the recent suicidal of her boyfriend of 17 years, who presented to the ED on a voluntary basis seeking admission to the unit for increasing depression, increasing alcohol consumption, somatic pain and inability to care for herself in the outpatient environment. Plan - Plan Treatment Plan: Name: RUMA SAM Birthdate: 1975 [id number] We have resumed outpatient medications, including duloxetine 60mg PO qday, hydroxyzine 50mg PO BID and trazodone 100mg PO qhs. For pain, we are providing gabapentin 600mg PO TID, prn tylenol and scheduled diclofenac 50mg PO TID. Will discontinue diclofenac due to edema and consult pain team. Patient encouraged to be more participatory on the unit. Continue inpatient level services while we try to connect her with local outpatient care. Continued Medication Management: Continue Outpt Medication Medications: Current Medications Acetaminophen (Tylenol Tab*) 650 mg PO Q4H PRN PRN Reason: PAIN or TEMP > 101 F Al Hydrox/Mg Hydrox/Simethicone (Maalox Plus*) 30 ml PO Q4H PRN PRN Reason: INDIGESTION Albuterol (Ventolin Hfa Inhaler*) 2 puff INH Q4H PRN PRN Reason: WHEEZING Clonidine HCl (Catapres Tab*) 0.1 mg PO TID PRN PRN Reason: ANXIETY Last Admin: 05/31/17 07:28 Dose: 0.1 mg Device (Nicotine Mouth Piece*) 1 each INH .[facility] Last Admin: 05/27/17 08:25 Dose: 1 each Diclofenac Sodium (Voltaren Ec Tab*) 50 mg PO TID [facility] Last Admin: 05/31/17 13:41 Dose: 50 mg Duloxetine HCl (Cymbalta Cap*) 60 mg PO DAILY [facility] Last Admin: 05/31/17 07:28 Dose: 60 mg Folic Acid (Folvite Tab*) 1 mg PO DAILY [facility] Last Admin: 05/31/17 07:28 Dose: 1 mg Gabapentin (Neurontin Cap(*)) 600 mg PO TID [facility] Last Admin: 05/31/17 13:42 Dose: 600 mg Hydroxyzine HCl (Atarax Tab*) 50 mg PO BID [facility] Last Admin: 05/31/17 07:29 Dose: 50 mg Lidocaine (Lidoderm 5% Patch*) 1 patch TRANSDERM DAILY [facility] Last Admin: 05/31/17 07:29 Dose: 1 patch Magnesium Oxide (Magox 400 Tab*) 400 mg PO DAILY [facility] Last Admin: 05/31/17 07:28 Dose: 400 mg Multivitamins/Minerals (Theragran/Minerals Tab*) 1 tab PO DAILY [facility] Last Admin: 05/31/17 07:28 Dose: 1 tab Nicotine (Nicotine Inhaler*) 10 mg INH Q2H PRN PRN Reason: CRAVING Last Admin: 05/29/17 13:48 Dose: 10 mg Nicotine Polacrilex (Nicotine Gum*) 2 mg PO Q2H PRN PRN Reason: CRAVING Last Admin: 05/31/17 06:05 Dose: 2 mg Pharmacy Profile Note (Lidocaine Patch Remove*) 1 note N/A 2100 [facility] Last Admin: 05/30/17 20:53 Dose: 1 note Thiamine HCl (Vitamin B-1 Tab*) 100 mg PO DAILY [facility] Last Admin: 05/31/17 07:29 Dose: 100 mg Trazodone HCl (Desyrel Tab*) 100 mg PO BEDTIME [facility] Last Admin: 05/30/17 20:52 Dose: 100 mg - Discharge Plan Discharge Plan: Inpatient Hospitalization
[2017-05-31] MEDS: Methadone TAB* 5 MG PO SCH (16:12)
--- NOTE | 2017-05-31 19:55 | CONS ---
INPATIENT PAIN CONSULTATION: DATE OF CONSULT: 05/31/17 REQUESTING PHYSICIAN: Dr. Rowley. REASON FOR REFERRAL: Back and neck pain. HISTORY OF PRESENT ILLNESS: Johanna Gaytan is a 42-year-old female. According to the patient, she injured her neck and back years ago. She has had 2 previous back surgeries and a cervical fusion done by Dr. Arambula in [place]. Her back surgeries were done in [place] by another surgeon. She says she has had chronic neck pain. After she had her neck surgery 3 years ago , she had moved to [place]. She said she saw a pain clinic in [place] as well as a surgeon in [place]. They did not do any surgery on her neck. She was told the pain clinic told her her neck was unstable. She says she has pain in her neck that radiates down her spine and into her legs. There are no previous records available for review. She tells me she saw a primary care doctor in [place]. He was writing her for narcotic pain medications. She said she took oxycodone 10 mg every 4 hours as needed as well as OxyContin 10 mg twice a day. She had tried other pain medications prior to that. The patient's longtime partner of the past 17 years committed suicide in April of this year. Since that time, she went back to drinking alcohol. She moved back to the [facility] because she has a son and daughter living in the area. She spent the night at the residence of her ex- boyfriend who brought the patient to the hospital the day after Thanksgiving. She did not seem able to manage herself. The patient does tell me she has a history of alcoholism in the past and has gone to but that she had cut back on her drinking and really was only having 1 or 2 drinks every few weeks. That is until the of her longtime boyfriend. PAST MEDICAL HISTORY: Significant for the 2 previous back surgeries 15 years ago and she also had the neck surgery 3 years ago. She has a history of asthma as well. CURRENT MEDICATIONS: Include; 1. Clonidine. 2. Cymbalta 60 mg daily. 3. Gabapentin 600 mg 3 times a day. 4. She has a Lidoderm patch. 5. She is also on a nicotine inhaler. ALLERGIES: The patient has allergies listed to LYRICA. SOCIAL HISTORY: She is a smoker. As mentioned, she had some difficulties with alcohol. PHYSICAL EXAM: Vital Signs: The patient's temperature is 98.8, blood pressure is 100/50, pulse is 90, respirations 18. HEENT: Her extraocular movements were intact. Her neck has a scar in the front of her neck. She had somewhat limited range of motion consistent with a previous fusion. She was tender over her upper trapezius muscles. Lung sounded clear to auscultation bilaterally. Heart sounds were regular. S1 and S2 audible. Abdomen: Soft and nontender. Extremities: Showed normal muscle bulk and tone. Back: Examined. There was a scar from her previous surgery. Neurologic: She was awake, alert. Muscle strength appeared to be 5/5 in both upper and lower extremities. She was able to ambulate without assistive devices. She had an antalgic gait. ASSESSMENT: Failed neck surgery. PLAN: Given her history of alcohol, I do not think it is reasonable to start her on short-acting opioids. Our choice is really between a long-acting morphine or methadone. Given her history of alcohol abuse in past, methadone is the wiser choice. I would recommend starting her on methadone 5 mg 3 times a day. We could increase this if needed. She certainly should not be taking more than 10 mg twice a day at present until we get more records. I am going to go ahead and write for the methadone. Thank you for the consult. [id number]/GILLIAN #: [id number] HARMONY
[2017-05-31] MEDS: traZODone TAB* 100 MG PO SCH (21:48)
[2017-05-31] MEDS: Lidocaine Patch REMOVE* 1 NOTE MISC SCH (21:49)
[2017-06-01] MEDS: Methadone TAB* 5 MG PO SCH ×4 (05:50→16:04)
[2017-06-01] MEDS: Multivitamins/Minerals TAB PO SCH (07:57)
[2017-06-01] MEDS: Magnesium Oxide TAB* 400 MG PO SCH (07:57)
[2017-06-01] MEDS: Folic Acid TAB* 1 MG PO SCH (07:57)
[2017-06-01] MEDS: Gabapentin CAP(*) 300 MG PO SCH ×3 (07:58→20:43)
[2017-06-01] MEDS: hydrOXYzine HCL TAB* 25 MG PO SCH ×2 (07:58→20:44)
[2017-06-01] MEDS: DULoxetine DR CAP* 60 MG CAP.DR PO SCH (07:58)
[2017-06-01] MEDS: Thiamine TAB* 100 MG TAB PO SCH (07:58)
[2017-06-01] MEDS: Nicotine GUM* 2 MG PO PRN (08:50)
[2017-06-01] MEDS: Lidocaine PATCH 5%* 1 PATCH TRANSDERM SCH (09:01)
[2017-06-01] MEDS: cloNIDine TAB* 0.1 MG PO PRN ×2 (12:23→20:43)
--- NOTE | 2017-06-01 12:54 | PN ---
Subjective - Subjective Service Type: 46036 Hosp care 15 min low complexity Subjective: Ruma appears to be in better spirits today. She was started on low dose methadone by pain specialist, Dr. Álvarez, yesterday, and I am told he was willing to see her on an outpatient basis. Consequently, she endorses less pain symptoms and has been observed to be more participatory in groups. She states that her ex-boyfriend would be willing to pick her up from the hospital tomorrow and allow her to stay with him until she can go to [facility] for emergency long term. She continues to deny SI. Objective - Appearance Appearance: Well Developed/Nourished Dysmorphic Features: No Hygiene: Normal Grooming: Well Kept - Behavior Psychomotor Activities: Normal Exhibits Abnormal Movement: No - Attitude and Relatedness Attitude and Relatedness: Cooperative Eye Contact: Good - Speech Quality: Unpressured Latencies: Normal Quantity: Appropriate - Mood Patient's Decription of Mood: "Good" - Affect Observed Affect: Good Affect Consistent with: Euthymia - Thought Process Patient's Thought Process: Coherent Thought Content: No Passive Wish, No Suicidal Planning, No Homicidal Ideation, No Paranoid Ideation - Sensorium Experiencing Hallucinations: No, Sensorium is Clear Type of Hallucinations: Visual: No, Auditory: No, Command: No - Level of Consciousness Level of Consciousness: Alert Orientation: Yes Intact, Yes Orientated to Time, Yes Orientated to Place, Yes Orientated to Person - Impulse Control Impulse Control: Tenuous - Insight and Judgement Insight and Judgement: Fair - Group Participation Particating in Group Activities: Yes - Medication Management Medication Management Adherence: Yes Assessment - Assessment Merits Inpatient Hospitalization: Consolidate Improvements, Pending Safe DC Plan Inpatient DSM-IV Dx: MDD, recurrent, severe without psychotic features Clinical Impression: 42 y.o. single, white female with a history of alcohol use disorder and recurrent depression, who is also suffering from bereavement from the recent suicidal of her boyfriend of 17 years, who presented to the ED on a voluntary basis seeking admission to the unit for increasing depression, increasing alcohol consumption, somatic pain and inability to care for herself in the outpatient environment. Plan - Plan Treatment Plan: Name: RUMA SAM Birthdate: 1975 [id number] We are grateful to Dr. Álvarez for his recommendations regarding pain treatment , and Ruma already seems to be benefitting. Her mood has been improving on duloxetine 60mg PO qday, hydroxyzine 50mg PO BID and trazodone 100mg PO qhs. She is also taking gabapentin 600mg PO TID and prn clonidine. Will likely d/c tomorrow to her ex-boyfriend's, pending [facility] emergency housing. Patient can follow up at [facility]. Continued Medication Management: Continue Outpt Medication Medications: Current Medications Acetaminophen (Tylenol Tab*) 650 mg PO Q4H PRN PRN Reason: PAIN or TEMP > 101 F Al Hydrox/Mg Hydrox/Simethicone (Maalox Plus*) 30 ml PO Q4H PRN PRN Reason: INDIGESTION Albuterol (Ventolin Hfa Inhaler*) 2 puff INH Q4H PRN PRN Reason: WHEEZING Clonidine HCl (Catapres Tab*) 0.1 mg PO TID PRN PRN Reason: ANXIETY Last Admin: 06/01/17 12:23 Dose: 0.1 mg Device (Nicotine Mouth Piece*) 1 each INH .[facility] Last Admin: 05/27/17 08:25 Dose: 1 each Duloxetine HCl (Cymbalta Cap*) 60 mg PO DAILY [facility] Last Admin: 06/01/17 07:58 Dose: 60 mg Folic Acid (Folvite Tab*) 1 mg PO DAILY [facility] Last Admin: 06/01/17 07:57 Dose: 1 mg Gabapentin (Neurontin Cap(*)) 600 mg PO TID [facility] Last Admin: 06/01/17 07:58 Dose: 600 mg Hydroxyzine HCl (Atarax Tab*) 50 mg PO BID [facility] Last Admin: 06/01/17 07:58 Dose: 50 mg Lidocaine (Lidoderm 5% Patch*) 1 patch TRANSDERM DAILY [facility] Last Admin: 06/01/17 09:01 Dose: 1 patch Magnesium Oxide (Magox 400 Tab*) 400 mg PO DAILY [facility] Last Admin: 06/01/17 07:57 Dose: 400 mg Methadone HCl (Dolophine Tab*) 5 mg PO Q8H [facility] Last Admin: 06/01/17 08:02 Dose: Not Given Multivitamins/Minerals (Theragran/Minerals Tab*) 1 tab PO DAILY [facility] Last Admin: 06/01/17 07:57 Dose: 1 tab Nicotine (Nicotine Inhaler*) 10 mg INH Q2H PRN PRN Reason: CRAVING Last Admin: 05/29/17 13:48 Dose: 10 mg Nicotine Polacrilex (Nicotine Gum*) 2 mg PO Q2H PRN PRN Reason: CRAVING Last Admin: 06/01/17 08:50 Dose: 2 mg Pharmacy Profile Note (Lidocaine Patch Remove*) 1 note N/A 2100 [facility] Last Admin: 05/31/17 21:49 Dose: 1 note Thiamine HCl (Vitamin B-1 Tab*) 100 mg PO DAILY [facility] Last Admin: 06/01/17 07:58 Dose: 100 mg Trazodone HCl (Desyrel Tab*) 100 mg PO BEDTIME [facility] Last Admin: 05/31/17 21:48 Dose: 100 mg - Discharge Plan Discharge Plan: Outpatient Follow Up Outpatient Program: [facility]
--- NOTE | 2017-06-01 13:12 | PN ---
MHU: Group Therapy Note - Service Type Service Type: 20815 Group Psychotherapy - Cognitive Behavioral Group Therapy ( CBT):Patient was attentive and participatory in CBT programming this morning, and remained in good behavioral control. Patient expressed positive insights regarding relevant treatment interventions and goals.
[2017-06-01] MEDS: traZODone TAB* 100 MG PO SCH (20:44)
[2017-06-01] MEDS: Lidocaine Patch REMOVE* 1 NOTE MISC SCH (21:04)
[2017-06-02] MEDS: Nicotine Inhaler* 10 MG AMP INH PRN (06:35)
[2017-06-02] MEDS: Magnesium Oxide TAB* 400 MG PO SCH (08:43)
[2017-06-02] MEDS: hydrOXYzine HCL TAB* 25 MG PO SCH (08:44)
[2017-06-02] MEDS: DULoxetine DR CAP* 60 MG CAP.DR PO SCH (08:44)
[2017-06-02] MEDS: Folic Acid TAB* 1 MG PO SCH (08:44)
[2017-06-02] MEDS: Gabapentin CAP(*) 300 MG PO SCH (08:44)
[2017-06-02] MEDS: Multivitamins/Minerals TAB PO SCH (08:44)
[2017-06-02] MEDS: Thiamine TAB* 100 MG TAB PO SCH (08:45)
[2017-06-02] MEDS: Methadone TAB* 5 MG PO SCH ×2 (09:11)
[2017-06-02] MEDS: Lidocaine PATCH 5%* 1 PATCH TRANSDERM SCH (09:14)
[2017-06-02] MEDS: cloNIDine TAB* 0.1 MG PO PRN (10:38)
[2017-06-02 10:40] VITALS: BP 145/79
--- NOTE | 2017-06-02 16:41 | DS ---
DATE OF ADMISSION: 05/27/2017. DATE OF DISCHARGE: 06/02/2017. DISCHARGE DIAGNOSIS: AXIS I: Major depressive disorder, recurrent, severe without psychotic features ; alcohol use disorder. AXIS II: Deferred. AXIS III: History of back and neck surgery, asthma, degenerative disk disease, carpal tunnel syndrome. AXIS IV: Severe, primary support and housing stressors. AXIS V: At the time of admission was 35 and at the time of discharge is 60. CONDITION AT THE TIME OF DISCHARGE: Improved. The patient continues to deny suicidal ideations as she has done so throughout her hospitalization. Her pain is much better controlled now that she has been placed on Methadone by the [facility] pain service. She is tolerating her medications quite well and willing to receive outpatient therapy and medication management at [facility]. For pain issues, she will be attending the [facility]. It is notable that the patient is declining either inpatient or outpatient substance abuse rehab and is fairly minimizing about her alcohol abuse leading up to this hospitalization. With that being said, she has good insight into her issues and we have referred her to the [employer] for temporary assistance until she can get her Medicaid and her social security [place]. The patient's ex-boyfriend will be allowing her to stay at his house temporarily until she can get emergency detention. He is agreeable with the discharge planning and will be picking her up from the hospital. The patient has been safe on all checks and she is appropriately requesting discharge. We see no justification for further inpatient treatment. MENTAL STATUS EXAMINATION: The patient is a middle-aged, white female who appears somewhat lydia and older than her stated age. She is sitting up at one of the tables in the milieu, appearing to be comfortable and making good eye contact. She is clean and well-groomed, has a normal rate, tone, and volume to her speech. Mood is euthymic with a full affect. Thought process is linear and goal-directed. Though content is significant for her desire to leave the hospital. She is denying suicidal or homicidal ideations. She denies auditory or visual hallucinations. Insight and judgement are fair given her willingness to follow-up with outpatient treatment in the community. Cognitively, she is awake and alert with what would appear to be an average intellect. DISCHARGE INSTRUCTIONS TO THE PATIENT: A. Medications: She is taking Duloxetine 60 mg daily; Clonidine 0.1 mg up to three times daily as a prn for anxiety; she takes albuterol inhaler, two puffs every four hours as a prn for wheezing; Gabapentin 600 mg p.o. t.i.d., magnesium oxide 400 mg p.o. daily; Methadone 5 mg p.o. t.i.d., Trazodone 100 mg p.o. at bedtime. B. Diet: Regular. C. Activities: As tolerated. The patient is a smoker, but is declining the continued use of nicotine replacement therapies in the outpatient setting indicating her preference to continue smoking at this time. In the event that she changes her mind and would like to quit, she was given access to the [facility] Smoker's Quitline at . There are no laboratory or diagnostic studies pending at the time of discharge. D. Follow-up care: She will be seen at [facility] within one week of discharge for her intake. In addition, she will be seeing Dr. Kofi Álvarez at the [facility], also within one week of discharge. For monetary and housing support, she is being referred to the [facility] [employer] here in [facility]. E. Substance abuse follow-up: The patient was offered substance use treatment referrals, but she refused. HOSPITAL COURSE - PART A: Reason for admission: The patient is a 42-year-old, single, white female with a history of alcohol use disorder and depression who was brought to the emergency room by her ex-boyfriend, who is the father of her adult children, due to increased symptoms of depression, abuse of alcohol, homelessness, and inability to care for herself. My understanding is that the patient has lost a great deal of weight recently, is only sleeping one hour night, and has been consuming close to a fifth of whiskey per day. On exam, the patient notes that her significant other of the past 17 years committed suicide in April of this year. Since then, she relapsed on alcohol following eight years of sobriety; last use was on the 25 of May. She had been residing with her partner in [place] until his . At that time, she came to this area due to the fact that she has an adult son and daughter, as well as a sister and her son's father. Initially, she was staying with her sister and then with her son, both of whom have problems of their own. From there, she spent a night with her ex-partner, a man named Ash, who then brought her to the hospital the day after Thanksgiving. The patient denies suicidal ideations and any history of harming others. She did endorse historic manic symptoms, but these never lasted more than half a day or perhaps one day. She did endorse multiple symptoms, however, of unipolar depression, including decreased ability to sleep, anhedonia, limited energy, poor concentration, poor appetite, and psychomotor retardation. She was denying thoughts of . When asked what the patient wanted, she indicated that she just needed a place to stay for a couple of days, to get back on her medications, and she would like to get hooked up with services both for her physical health as well as her mental health care here in the community. She is hoping to reside now in [facility] to be closer with family members. She is highly somatic and complaining of back and neck pain, which I understand are chronic problems. Unfortunately, she does not recall the names of the pharmacies she used to receive opioid pain relievers, nor does she recall the names of any of her providing clinicians. HOSPITAL COURSE - PART B: Psychiatric treatment rendered: The patient was admitted to the Adult Behavioral Health Unit where she was placed on q.15 minute checks for her own safety. We immediately resumed treatment with Duloxetine, Hydroxyzine and Trazodone, and we added a trial of prn Clonidine for anxiety management. She asked for treatment with Adderall and stimulants, but given her substance abuse history, we did not feel comfortable with this. She also complained bitterly of back and neck pain. She tended to stay in bed all day, being somatic, not going to groups and not participating. We tried numerous strategies, including resuming her Gabapentin and titrating this up to 600 mg three times daily. We also put a 5% Lidoderm patch on her back throughout the day. We also used prn acetaminophen and scheduled Diclofenac, which was ultimately titrated to 500 mg t.i.d. The patient did not like the Diclofenac and felt that it was making her ankles edematous and for this reason it was discontinued. We then requested a referral from the pain service here at [facility] and she was promptly seen by Dr. Kofi Álvarez, who was aware of her history of alcohol dependence and was similarly aware that she does not have any formal outpatient treatment at this point in this community. Given her dynamics and history, he decided that a trial of Methadone would be most appropriate, initiating this at 5 mg p.o. t.i.d. The patient was quite grateful for this and expressed a willingness to follow-up with Dr. Álvarez in his outpatient setting. It should be noted that at no point during this hospitalization, including in our emergency room, did she endorse suicidal ideations, nor did she during her hospitalization. Most of her stressors included homelessness and lack of [facility] insurance. For these issues, we are sending her to the [facility] [employer]. She is going to be taken there by her ex-boyfriend, who is allowing her to stay at his house until she can get these items resolved. She has also been hooked up with [facility] and is showing a favorable attitude towards following through with this. On the other hand, she has not shown much insight into her alcohol abuse leading up this admission, despite the fact that she was drinking up to a fifth of whiskey per day. We could not even talk her into a referral to the [facility] [place] ([place] We are recommending that she attend Alcoholics Anonymous community meetings in the outpatient setting to which she agrees. [id number]/[facility] #: [id number] HARMONY
--- NOTE | 2017-06-25 22:54 | PN ---
Tricia Hamilton SooYoung, scribed for Rosa Norwood MD on 05/27/17 at 0349 . Progress Note - Progress Note Date of Service: 05/27/17 Note: SO from DAVID Posada pending E. [id number]: Spoke with [facility] Pt will be admitted to [facility] for unspecified mood disorder. DX: UNSPECIFIED MOOD DISODER Dispo: Stable, admit to [facility] The documentation as recorded by the bernyibTricia sinha SooYoung accurately reflects the service I personally performed and the decisions made by , Rosa Norwood MD.
== END 2017-06-02 12:55 | disposition home or self-care (01) | DRG 751 ==
LOC: ED 19:28 → BSU 05-27 05:18
PROVIDERS: ADMIT Psychiatry & Neurology Psychiatry; ATTEND Psychiatry & Neurology Psychiatry
PROC: GZHZZZZ Group Psychotherapy (ICD-10-PCS; principal; 2017-05-30)
DX: F33.2 Major depressive disorder, recurrent severe without psychotic features (principal); F10.10 Alcohol abuse, uncomplicated; G89.29 Other chronic pain; I10 Essential (primary) hypertension; F41.0 Panic disorder [episodic paroxysmal anxiety]; F12.90 Cannabis use, unspecified, uncomplicated; F17.210 Nicotine dependence, cigarettes, uncomplicated; G56.00 Carpal tunnel syndrome, unspecified upper limb; J45.909 Unspecified asthma, uncomplicated; M47.9 Spondylosis, unspecified; Y90.9 Presence of alcohol in blood, level not specified; Z88.8 Allergy status to other drugs, medicaments and biological substances; Z81.1 Family history of alcohol abuse and dependence; Z23 Encounter for immunization; Z98.1 Arthrodesis status
CPT/HCPCS: 36415; 80053; 80307; 80320; 80329; 81003; 81015; 83735; 84443; 85025; 90686; 90732; 90853; 99222; 99231; 99238; 99285; A9270-GY; G0480

== ENCOUNTER 2017-09-03 01:30 | Inpatient (IN) | payer MEDICAID ==
[2017-09-03] MEDS ORDERED: FOLIC ACID IV ONE ×5 (02:02→02:30)
[2017-09-03] MEDS ORDERED: [UNRECOGNIZED DRUG - OTHER] IV ONE (02:02)
[2017-09-03] MEDS ORDERED: MULTIPLE VITAMIN IV ONE ×5 (02:02→02:30)
[2017-09-03] MEDS ORDERED: THIAMINE IV ONE (02:02)
[2017-09-03] MEDS ORDERED: Thiamine TAB* 100 MG TAB PO ONE (02:04)
[2017-09-03] MEDS ORDERED: NS IV ONE ×4 (02:30)
[2017-09-03 02:40] LABS: EGFR Non-African American 155.3 (>60)
[2017-09-03 02:56] LABS: ABS Basophils 0 10^3/ul (0-0.2); ABS Eosinophils 0.2 10^3/ul (0-0.6); ABS Monocytes 0.4 10^3/ul (0-0.8); ABS Neutrophils 3.2 10^3/ul (1.5-7.7); ABS Nucleated RBC 0 10^3/ul; Eosinophil % 2.4 % (0-6); Hematocrit 45 % (35-47); Hemoglobin 14.6 g/dl (12.0-16.0); Mean Corpuscular HGB Conc 33 g/dl (31-36); Mean Corpuscular Hemoglobin 29 pg (27-31); Mean Corpuscular Volume 89 fL (80-97); Mean Platelet Volume 8 um3 (7.4-10.4); Nucleated Red Blood Cells % 0.1; Platelet Count 330 10^3/ul (150-450); Red Blood Count 5.07 10^6/ul (4.0-5.4); Red Cell Distribution Width 19 % (10.5-15); White Blood Count 6.8 10^3/ul (3.5-10.8)
[2017-09-03] MEDS ORDERED: Ondansetron INJ* 2 MG/ML VIAL ONE (05:49)
[2017-09-03] MEDS ORDERED: Ondansetron INJ* 2 MG/ML VIAL IV ONE (05:51)
--- NOTE | 2017-09-03 06:17 | ED ---
Ruben Hamilton Nikita, scribed for Ehsan Davila MD on 09/03/17 at 0244 . Substance Abuse/Use - HPI Summary HPI Summary: This patient is a 42 year old F BIBA to ED with a chief complaint of not feeling well since a couple days ago. The patient got out of bed only once today. She called EMS and reports she has been drinking a lot (Black Velvet since 2 days ago) and has been depressed since the passing of her son from suicide 2 months ago. Her significant other of 17 years has also just committed suicide. The patient rates the pain 0/10 in severity. Symptoms aggravated by nothing. Symptoms alleviated by nothing. EMS reports incontinence upon arrival at residence. Patient reports ear pain, sore throat, and LOC. She reports she has not eaten since 2 days ago. Patient denies SI and HI. Patient reports to being an alcoholic. - History Of Current Complaint Chief Complaint: EDGeneral Stated Complaint: N/V Time Seen by Provider: 09/03/17 02:28 Hx Obtained From: Patient Onset/Duration of Drug/ETOH Abuse: Hours Ingestion History: Approximate Time Of Ingestion - black velvet since 2 days ago Timing Of Abuse: Binge Use Character: Depressed Aggravating Factor(s): Nothing Alleviating Factor(s): Nothing Associated Signs And Symptoms: Other: - EMS reports incontinence upon arrival at residence. Patient reports depression, ear pain, sore throat, and LOC. She reports she has not eaten since 2 days ago. Patient denies SI and HI. - Allergies/Home Medications Allergies/Adverse Reactions: Allergies Allergy/AdvReac Type Severity Reaction Status Date / Time pregabalin Allergy Anaphylatic Verified 09/03/17 02:32 Shock PMH/Surg Hx/FS Hx/Imm Hx Endocrine/Hematology History: Denies: Hx Diabetes Cardiovascular History: Reports: Hx Hypertension - TAKES MEDICATION Denies: Hx Pacemaker/ICD Respiratory History: Reports: Hx Asthma GI History: Reports: Other GI Disorders - hx of fatty liver disease Musculoskeletal History: Reports: Hx Back Problems, Other Musculoskeletal History - hx of degenerative disc disease Sensory History: Reports: Hx Contacts or Glasses Denies: Hx Hearing Aid Opthamlomology History: Reports: Hx Contacts or Glasses Neurological History: Reports: Hx Seizures - d/t etoh withdrawal 7 years ago Psychiatric History: Reports: Hx Anxiety, Hx Depression, Hx Panic Disorder - ANXIETY, Hx Inpatient Treatment - following partner's suicide in April, Denies: Hx of Violent Episodes Against Others - Surgical History Surgery Procedure, Year, and Place: 07/03 &05/03 [facility] X[facility]. - Immunization History Date of Tetanus Vaccine: utd Date of Influenza Vaccine: none Infectious Disease History: No Infectious Disease History: Denies: Traveled Outside the [place] in Last 30 Days - Family History Known Family History: Positive: Other Negative: Diabetes Family History: alcoholism, SI - Social History Alcohol Use: states she drinks etoh twice per week, six or more each time Alcohol Amount: 1/5 a week Hx Substance Use: No Substance Use Type: Reports: Marijuana Substance Use Comment - Amount & Last Used: used a couple weeks ago Hx Tobacco Use: Yes Smoking Status (MU): Heavy Every Day Tobacco Smoker Type: Cigarettes Amount Used/How Often: Patient states 2 1/2 packs daily. Have You Smoked in the Last Year: Yes Review of Systems Positive: Other - alcohol intoxication Positive: Sore Throat, Ear Ache Positive: Other - Pt has not eaten in the past two days Neurological: Other - LOC Positive: Depressed, Other - denies SI and HI All Other Systems Reviewed And Are Negative: Yes Physical Exam - Summary Physical Exam Summary: Appearance: Well appearing, no pain distress Skin: warm, dry, reflects adequate perfusion Head/face: normal Eyes: EOMI, JASMYNE ENT: normal, throat is clear, ears are normal, does not smell of alcohol Neck: supple, non-tender Respiratory: CTA, breath sounds present Cardiovascular: RRR, pulses symmetrical Abdomen: non-tender, soft Bowel: present Musculoskeletal: normal, strength/ROM intact Neuro: normal, sensory motor intact, A&Ox3 Triage Information Reviewed: Yes Vital Signs On Initial Exam: Initial Vitals Temp Pulse Resp BP Pulse Ox 99.6 F 106 18 124/89 97 09/03/17 01:34 09/03/17 01:34 09/03/17 01:34 09/03/17 01:34 09/03/17 01:34 Vital Signs Reviewed: Yes Diagnostics - Vital Signs Vital Signs Temp Pulse Resp BP Pulse Ox 09/03/17 01:34 99.6 F 106 18 124/89 97 - Laboratory Lab Results: Lab Results 09/03/17 Range/Units 02:10 Sodium 132 L (133-145) mmol/L Potassium 3.6 (3.5-5.0) mmol/L Chloride 100 L (101-111) mmol/L Carbon Dioxide 16 L (22-32) mmol/L Anion Gap 16 H (2-11) mmol/L BUN 9 (6-24) mg/dL Creatinine 0.44 L (0.51-0.95) mg/dL Est GFR ( Amer) 199.8 (>60) Est GFR (Non-Af Amer) 155.3 (>60) BUN/Creatinine Ratio 20.5 H (8-20) Glucose 76 (70-100) mg/dL Calcium 9.6 (8.6-10.3) mg/dL Total Bilirubin 0.50 (0.2-1.0) mg/dL AST 23 (13-39) U/L ALT 13 (7-52) U/L Alkaline Phosphatase 94 (34-104) U/L Total Protein 8.1 (6.4-8.9) g/dL Albumin 4.1 (3.2-5.2) g/dL Globulin 4.0 (2-4) g/dL Albumin/Globulin Ratio 1.0 (1-3) Lipase < 10 L (11.0-82.0) U/L Serum Alcohol Pending Result Diagrams: 09/03/17 02:10 09/03/17 02:10 Lab Statement: Any lab studies that have been ordered have been reviewed, and results considered in the medical decision making process. - EKG 0300 Cardiac Rate: Tachycardia EKG Rhythm: Sinus Tachycardia - [address] Segment: Normal EKG Interpretation: normal axis interval Course/Dx - Course Course Of Treatment: ETOH, with alcoholism. Not eating or really leaving bed. Recent of son and close family member to suicide. Coherent initially. Sobered less that etoh 100 and was cleared for . Banana bag and thiamine given. Signed out at 7am pending findings of eval. - Diagnoses Differential Diagnosis/HQI/PQRI: Positive: Other - alcoholism, depression, substance related, bereavement or adjustment disorder Provider Diagnoses: Alcoholism, Substance induced mood disorder, Major depression, recurrent Discharge - Discharge Plan Condition: Stable Disposition: OTHER Discharge Disposition Comment: This pt will be signed out to Dr. Hawley, pending dispo, awaiting MHE. Referrals: No Primary Care Phys,NOPCP [Primary Care Provider] - The documentation as recorded by the Ruben delgado Nikita accurately reflects the service I personally performed and the decisions made by me, Ehsan Davila MD.
[2017-09-03 06:54] LABS: Urine Appearance Cloudy; Urine Blood Negative (Negative); Urine Color Amber; Urine Ketones 2+ (Negative); Urine Protein 1+(30 mg/dL) (Negative); Urine Specific Gravity 1.029 (1.010-1.030); Urine Urobilinogen Positive (Negative)
[2017-09-03] MEDS ORDERED: LORazepam TAB(*) 1 MG PO ONE (07:00)
[2017-09-03] MEDS ORDERED: Acetaminophen TAB* 325 MG PO ONE (08:07)
[2017-09-03] MEDS ORDERED: Acetaminophen TAB* 325 MG PO PRN (10:10)
[2017-09-03] MEDS ORDERED: Mouth Piece, Nicotine* 1 EACH CARTRIDGE INH SCH (10:10)
[2017-09-03] MEDS ORDERED: Al Hydrox/Mg Hydrox/Simet LIQ* 30 ML UDC PO PRN (10:10)
[2017-09-03] MEDS ORDERED: Nicotine Inhaler* 10 MG AMP INH PRN (10:10)
[2017-09-03] MEDS ORDERED: Albuterol HFA INHALER* 8 gm MDI INH PRN (10:12)
[2017-09-03] MEDS ORDERED: DULoxetine DR CAP* 60 MG CAP.DR PO SCH (10:30)
[2017-09-03] MEDS ORDERED: LORazepam IM 0-6 mg for WAM protocol IM SCH (11:00)
[2017-09-03] MEDS: Magnesium Oxide TAB* 400 MG PO SCH (12:48)
[2017-09-03] MEDS: Gabapentin CAP(*) 300 MG PO SCH ×3 (12:48→21:26)
[2017-09-03] MEDS: LORazepam PO 0-6 for WAM protocol PO SCH ×2 (13:05→21:31)
[2017-09-03] MEDS: cloNIDine TAB* 0.1 MG PO SCH ×2 (15:09→21:27)
[2017-09-03] MEDS: QUEtiapine XR TAB* 300 MG PO SCH (21:26)
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
[2017-09-04] MEDS: Vitamin THERAPEUTIC TAB PO SCH (10:19)
[2017-09-04] MEDS: cloNIDine TAB* 0.1 MG PO SCH ×3 (10:20→20:54)
[2017-09-04] MEDS: DULoxetine DR CAP* 30 MG CAP.DR PO SCH (10:20)
[2017-09-04] MEDS: Gabapentin CAP(*) 300 MG PO SCH ×3 (10:20→20:54)
[2017-09-04] MEDS: Magnesium Oxide TAB* 400 MG PO SCH (10:21)
--- NOTE | 2017-09-04 17:42 | PN ---
Subjective - Subjective Subjective: Ruma in in bed, she c/o alcohol withdrawal symptoms (tremulousness, nausea, bodyaches). She continues to score on the WAM protocol. She endorses depressed mood, denies SI and she contracts for safety. Per staff, she has been seclusive to her room, sleeping mostly. Objective - Appearance Appearance: Other - in moderate distress Hygiene: Normal Grooming: Fairly Well Kept - Behavior Psychomotor Activities: Abnormal-Decreased Exhibits Abnormal Movement: No - Attitude and Relatedness Attitude and Relatedness: Irritable Eye Contact: Fair - Speech Quality: Unpressured Latencies: Normal Quantity: Terse - Mood Patient's Decription of Mood: "Terrible" - Affect Observed Affect: Constricted Affect Consistent with: Dysphoria - Thought Process Patient's Thought Process: Coherent, Goal Directed Thought Content: No Passive Wish, No Suicidal Planning, No Homicidal Ideation, No Paranoid Ideation - Sensorium Experiencing Hallucinations: No, Sensorium is Clear - Level of Consciousness Level of Consciousness: Alert Orientation: Yes Intact - Impulse Control Impulse Control: Intact - Insight and Judgement Insight and Judgement: Poor - Group Participation Particating in Group Activities: Yes - Medication Management Medication Management Adherence: Yes Assessment - Assessment Merits Inpatient Hospitalization: For Ongoing Evaluation, Consolidate Improvements, For Discharge Planning Inpatient DSM-V Dx: F10.230 Clinical Impression: SUMMARY: Third lifetime inpatient psychiatric admission for this 42-year-old female with history of alcohol dependence, repeated trauma, questionable adherence to outpatient psychiatric and substance abuse treatment who was self- referred and was admitted on emergency status because of concern about suicidality after her drinking became out of control and she called 911. Medical history is remarkable for bronchial asthma, fatty liver disease and carpal tunnel syndrome. The patient has recently exhibited pattern of drinking a half-liter of whisky a day and not taking her medication and not eating and not sleeping. The patient's family history is significant for a son who recently completed suicide. He had a history of addiction to drugs. Both the patient's parents were alcoholics and the patient's other son is also using drugs. The patient describes stressors of suicide of her boyfriend last fall and suicide of her son about 2 months ago, inability to stop drinking, inability to grieve and occupational and social support deficits. DIAGNOSTIC IMPRESSIONS: 1. Alcohol use disorder, severe. 2. Major depressive disorder, recurrent, severe, without psychotic features. 3. Posttraumatic stress disorder by history. Patient is actively detoxing from alcohol. Plan - Plan Treatment Plan: Name: RUMA SAM Birthdate: 1975 [id number] Medications: Current Medications Acetaminophen (Tylenol Tab*) 650 mg PO Q4H PRN PRN Reason: PAIN or TEMP > 101 F Al Hydrox/Mg Hydrox/Simethicone (Maalox Plus*) 30 ml PO Q4H PRN PRN Reason: INDIGESTION Albuterol (Ventolin Hfa Inhaler*) 2 puff INH Q4H PRN PRN Reason: SHORTNESS OF BREATH Clonidine HCl (Catapres Tab*) 0.1 mg PO BID PRN PRN Reason: ANXIETY Clonidine HCl (Catapres Tab*) 0.1 mg PO TID [facility] Last Admin: 09/04/17 14:08 Dose: Not Given Device (Nicotine Mouth Piece*) 1 each INH .CARTRIDGE [facility] Duloxetine HCl (Cymbalta Cap*) 90 mg PO DAILY [facility] Last Admin: 09/04/17 10:20 Dose: 90 mg Gabapentin (Neurontin Cap(*)) 600 mg PO TID [facility] Last Admin: 09/04/17 14:08 Dose: Not Given Lorazepam (Ativan Tab(*)) 0 - 6 mg PO .PER [facility] PARAMETERS [facility] PRN Reason: Protocol Last Admin: 09/03/17 21:31 Dose: 2 mg Lorazepam (Ativan Inj*) 0 - 6 mg IM .PER [facility] PROTOCOL JOJO PRN Reason: Protocol Magnesium Oxide (Magox 400 Tab*) 400 mg PO DAILY [facility] Last Admin: 09/04/17 10:21 Dose: 400 mg Multivitamins (Theragran Tab*) 1 tab PO DAILY [facility] Last Admin: 09/04/17 10:19 Dose: 1 tab Nicotine (Nicotine Inhaler*) 10 mg INH Q2H PRN PRN Reason: CRAVING Nicotine Polacrilex (Nicotine Gum*) 2 mg PO Q2H PRN PRN Reason: CRAVING Quetiapine Fumarate (Seroquel Xr Tab*) 300 mg PO BEDTIME [facility] Last Admin: 09/03/17 21:26 Dose: 300 mg - Discharge Plan Discharge Plan: Outpatient Follow Up Outpatient Program: [facility]
[2017-09-04] MEDS: QUEtiapine XR TAB* 300 MG PO SCH (20:55)
[2017-09-05] MEDS: cloNIDine TAB* 0.1 MG PO SCH ×3 (09:57→21:18)
[2017-09-05] MEDS: Gabapentin CAP(*) 300 MG PO SCH ×2 (09:57→14:29)
[2017-09-05] MEDS: DULoxetine DR CAP* 30 MG CAP.DR PO SCH (09:58)
[2017-09-05] MEDS: Magnesium Oxide TAB* 400 MG PO SCH (09:59)
[2017-09-05] MEDS: Vitamin THERAPEUTIC TAB PO SCH (09:59)
[2017-09-05] MEDS ORDERED: Gabapentin CAP(*) 100 MG PO ONE (15:35)
--- NOTE | 2017-09-05 16:14 | PN ---
Subjective - Subjective Service Type: 06134 Hosp care 25 min moderate complexity Subjective: Patient seen by bid writer and social work therapist Asya Hardy LMSW to discuss treatment planning and goals. Patient states she is "emotionally exhausted" related to physical pain. She inquires about consult with pain specialist. She endorses withdrawal symptoms from alcohol: diaphoretic, nauseous, anxious and tremulous. She states she wants "to stay sober" and is receptive to suggestions for medications for alcohol use disorder. Objective - Appearance Appearance: Thin Framed Dysmorphic Features: Yes Hygiene: Dirty Grooming: Disheveled - Behavior Psychomotor Activities: Abnormal-Decreased Exhibits Abnormal Movement: Yes - Attitude and Relatedness Attitude and Relatedness: Withdrawn Eye Contact: Good - Speech Quality: Unpressured Latencies: Normal Quantity: Appropriate - Mood Patient's Decription of Mood: "exhausted" - Affect Observed Affect: Depressed Affect Consistent with: Dysphoria - Thought Process Patient's Thought Process: Coherent, Goal Directed Thought Content: No Passive Wish, No Suicidal Planning, No Homicidal Ideation, No Paranoid Ideation - Sensorium Experiencing Hallucinations: No, Sensorium is Clear Type of Hallucinations: Visual: No, Auditory: No, Command: No - Level of Consciousness Level of Consciousness: Alert Orientation: Yes Intact, Yes Orientated to Time, Yes Orientated to Place, Yes Orientated to Person - Impulse Control Impulse Control: Tenuous - Insight and Judgement Insight and Judgement: Fair - Group Participation Particating in Group Activities: No - Medication Management Medication Management Adherence: Yes Assessment - Assessment Merits Inpatient Hospitalization: For Immediate Safety, For Stabilization, To Initiate Treatment, Pending Safe DC Plan Inpatient DSM-V Dx: F10.230 Clinical Impression: Ruma is a 42yo female with a history of PTSD, major depressive d/o and alcohol use d/o. She presented to ED in the context of intoxication and grief related to son's completed suicide. She is actively withdrawing from alcohol and methadone. She merits hospitalization for immediate safety and stabilization. Plan - Plan Treatment Plan: Name: RUMA SAM Birthdate: 1975 [id number] continue acute intensive psychiatric treatment. encourage milieu, groups and ADLs. increase gabapentin to 800mg TID. consult by pain specialist requested. patient declines referral to inpatient substance use treatment. She is contemplating medications and outpatient treatment for alcohol use. Continued Medication Management: Consider Medication Medications: Current Medications Acetaminophen (Tylenol Tab*) 650 mg PO Q4H PRN PRN Reason: PAIN or TEMP > 101 F Al Hydrox/Mg Hydrox/Simethicone (Maalox Plus*) 30 ml PO Q4H PRN PRN Reason: INDIGESTION Albuterol (Ventolin Hfa Inhaler*) 2 puff INH Q4H PRN PRN Reason: SHORTNESS OF BREATH Clonidine HCl (Catapres Tab*) 0.1 mg PO BID PRN PRN Reason: ANXIETY Clonidine HCl (Catapres Tab*) 0.1 mg PO TID [facility] Last Admin: 09/05/17 14:33 Dose: 0.1 mg Device (Nicotine Mouth Piece*) 1 each INH .CARTRIDGE [facility] Duloxetine HCl (Cymbalta Cap*) 90 mg PO DAILY [facility] Last Admin: 09/05/17 09:58 Dose: 90 mg Gabapentin (Neurontin Cap(*)) 800 mg PO TID [facility] Lorazepam (Ativan Tab(*)) 0 - 6 mg PO .PER [facility] PARAMETERS [facility]JO PRN Reason: Protocol Last Admin: 09/03/17 21:31 Dose: 2 mg Lorazepam (Ativan Inj*) 0 - 6 mg IM .PER [facility] PROTOCOL JOJO PRN Reason: Protocol Magnesium Oxide (Magox 400 Tab*) 400 mg PO DAILY [facility] Last Admin: 09/05/17 09:59 Dose: 400 mg Multivitamins (Theragran Tab*) 1 tab PO DAILY [facility] Last Admin: 09/05/17 09:59 Dose: 1 tab Nicotine (Nicotine Inhaler*) 10 mg INH Q2H PRN PRN Reason: CRAVING Nicotine Polacrilex (Nicotine Gum*) 2 mg PO Q2H PRN PRN Reason: CRAVING Quetiapine Fumarate (Seroquel Xr Tab*) 300 mg PO BEDTIME [facility] Last Admin: 09/04/17 20:55 Dose: 300 mg - Discharge Plan Discharge Plan: Outpatient Follow Up Outpatient Program: [facility]
[2017-09-05] MEDS: cloNIDine TAB* 0.1 MG PO PRN (18:50)
[2017-09-05] MEDS: QUEtiapine XR TAB* 300 MG PO SCH (21:17)
[2017-09-05] MEDS: Gabapentin CAP(*) 400 MG PO SCH (21:18)
[2017-09-06] MEDS: Magnesium Oxide TAB* 400 MG PO SCH (07:37)
[2017-09-06] MEDS: DULoxetine DR CAP* 30 MG CAP.DR PO SCH (07:37)
[2017-09-06] MEDS: Vitamin THERAPEUTIC TAB PO SCH (07:37)
[2017-09-06] MEDS: Gabapentin CAP(*) 400 MG PO SCH ×3 (07:38→20:51)
[2017-09-06] MEDS ORDERED: Mouth Piece, Nicotine* 1 EACH CARTRIDGE ONE (07:40)
[2017-09-06] MEDS: Nicotine GUM* 2 MG PO PRN (07:40)
[2017-09-06 08:40] LABS: EGFR Non-African American 163.9 (>60)
[2017-09-06] MEDS: cloNIDine TAB* 0.1 MG PO SCH ×3 (09:32→20:52)
--- NOTE | 2017-09-06 14:52 | PN ---
Subjective - Subjective Service Type: 04189 Hosp care 25 min moderate complexity Subjective: Patient is dysphoric, lying in bed. She reports continued physical pain. She explains that she was a client of pain clinic but was discharged when she cancelled appointments. She states that her son's sudden was a factor. In the meantime, she utilized her PCP at [facility] and has been waiting for a referral to Dr Marroquin. She reports desire to "get my pain under control" and be ambulatory without devices. Patient becomes tearful when talking about her son, Jeff, who was a victim of suicide in July. She states she is also concerned about her other son, as he is engaging in unhealthy behaviors. She is receptive to prompts to complete ADLs and increase participation in groups. Objective - Appearance Dysmorphic Features: Yes Hygiene: Dirty Grooming: Disheveled - Behavior Psychomotor Activities: Abnormal-Decreased - Attitude and Relatedness Attitude and Relatedness: Withdrawn Eye Contact: Fair - Speech Quality: Unpressured Latencies: Normal Quantity: Appropriate - Mood Patient's Decription of Mood: "tired" - Affect Observed Affect: Tearful Affect Consistent with: Dysphoria - Thought Process Patient's Thought Process: Circumstantial, Impoverished Thought Content: Yes Passive Wish, No Suicidal Planning, No Homicidal Ideation, No Paranoid Ideation - Sensorium Experiencing Hallucinations: No, Sensorium is Clear Type of Hallucinations: Visual: No, Auditory: No, Command: No - Level of Consciousness Level of Consciousness: Alert Orientation: Yes Intact, Yes Orientated to Time, Yes Orientated to Place, Yes Orientated to Person - Impulse Control Impulse Control: Poor - Insight and Judgement Insight and Judgement: Poor - Group Participation Particating in Group Activities: No - Medication Management Medication Management Adherence: Yes Assessment - Assessment Merits Inpatient Hospitalization: For Immediate Safety, For Stabilization Inpatient DSM-V Dx: F10.230 Clinical Impression: Johanna is a 42yo female with a history of PTSD, major depressive d/o and alcohol use d/o. She presented to ED in the context of intoxication and grief related to son's completed suicide. She is actively withdrawing from alcohol and methadone. She merits hospitalization for immediate safety and stabilization. Plan - Plan Treatment Plan: Name: JOHANNA SAM Birthdate: 1975 [id number] continue acute intensive psychiatric treatment. encourage milieu, groups and ADLs. increase gabapentin to 800mg TID. consult by pain specialist requested. patient declines referral to inpatient substance use treatment. She is contemplating medications and outpatient treatment for alcohol use. Continued Medication Management: Continue Outpt Medication Medications: Current Medications Acetaminophen (Tylenol Tab*) 650 mg PO Q4H PRN PRN Reason: PAIN or TEMP > 101 F Al Hydrox/Mg Hydrox/Simethicone (Maalox Plus*) 30 ml PO Q4H PRN PRN Reason: INDIGESTION Albuterol (Ventolin Hfa Inhaler*) 2 puff INH Q4H PRN PRN Reason: SHORTNESS OF BREATH Clonidine HCl (Catapres Tab*) 0.1 mg PO BID PRN PRN Reason: ANXIETY Last Admin: 09/05/17 18:50 Dose: 0.1 mg Clonidine HCl (Catapres Tab*) 0.1 mg PO TID [facility] Last Admin: 09/06/17 13:50 Dose: 0.1 mg Device (Nicotine Mouth Piece*) 1 each INH .CARTRIDGE [facility] Duloxetine HCl (Cymbalta Cap*) 90 mg PO DAILY [facility] Last Admin: 09/06/17 07:37 Dose: 90 mg Gabapentin (Neurontin Cap(*)) 800 mg PO TID [facility] Last Admin: 09/06/17 13:50 Dose: 800 mg Guaifenesin (Mucinex*) 600 mg PO BID [facility] Lorazepam (Ativan Tab(*)) 0 - 6 mg PO .PER [facility]AM[facility]ERS [facility] PRN Reason: Protocol Last Admin: 09/03/17 21:31 Dose: 2 mg Lorazepam (Ativan Inj*) 0 - 6 mg IM .PER [facility] PROTOCOL [facility] PRN Reason: Protocol Magnesium Oxide (Magox 400 Tab*) 400 mg PO DAILY [facility] Last Admin: 09/06/17 07:37 Dose: 400 mg Multivitamins (Theragran Tab*) 1 tab PO DAILY [facility] Last Admin: 09/06/17 07:37 Dose: 1 tab Nicotine (Nicotine Inhaler*) 10 mg INH Q2H PRN PRN Reason: CRAVING Last Admin: 09/06/17 07:40 Dose: 10 mg Nicotine Polacrilex (Nicotine Gum*) 2 mg PO Q2H PRN PRN Reason: CRAVING Last Admin: 09/06/17 07:40 Dose: 2 mg Quetiapine Fumarate (Seroquel Xr Tab*) 300 mg PO BEDTIME [facility] Last Admin: 09/05/17 21:17 Dose: 300 mg - Discharge Plan Discharge Plan: Outpatient Follow Up Outpatient Program: [facility]
[2017-09-06] MEDS: cloNIDine TAB* 0.1 MG PO PRN (17:04)
--- NOTE | 2017-09-06 18:31 | CONSULT ---
Consult Consult: INPATIENT PAIN CONSULTATION Johanna Gaytan is a 42 year old female. She injured her neck and back many years ago. She had two previous back surgeries done 15 years ago in [place] and a cervical fusion done by Dr. Arambula in [place] around 3 years ago. She says she suffers from chronic neck pain. She was living in [place] and saw a pain clinic there, and had a primary care doctor in [place] who wrote for pain medications. She says she was on OxyContin 10 BID and oxycodone 10 mg every 4 hours. The patient has a history of heavy alcohol use. She says her longtime partner committed suicide in April leading to a relapse of drinking. She was hospitalized in late May on the [facility] because her drinking was out of control. I had seen her at that time. I had agreed to write Methadone. She had a follow up appointment with me in the Pain Clinic. She never showed up for the appointment. She states that she missed the appointment due to the suicide of her son in July. It is unclear if she missed a second appointment. She was discharged from the Pain Clinic. She also had a relapse with her drinking. She says she came back to the [facility] because she knew she had a problem with alcohol. She says she was going to . She is hoping to get back on Methadone PAST MEDICAL HISTORY: Back surgeries, cervical fusion, asthma, alcohol abuse ALLERGIES: Lyrica Current Medications Acetaminophen (Tylenol Tab*) 650 mg PO Q4H PRN PRN Reason: PAIN or TEMP > 101 F Al Hydrox/Mg Hydrox/Simethicone (Maalox Plus*) 30 ml PO Q4H PRN PRN Reason: INDIGESTION Albuterol (Ventolin Hfa Inhaler*) 2 puff INH Q4H PRN PRN Reason: SHORTNESS OF BREATH Clonidine HCl (Catapres Tab*) 0.1 mg PO BID PRN PRN Reason: ANXIETY Last Admin: 09/06/17 17:04 Dose: 0.1 mg Clonidine HCl (Catapres Tab*) 0.1 mg PO TID [facility] Last Admin: 09/06/17 13:50 Dose: 0.1 mg Device (Nicotine Mouth Piece*) 1 each INH .CARTRIDGE [facility] Duloxetine HCl (Cymbalta Cap*) 90 mg PO DAILY [facility] Last Admin: 03/07/18 07:37 Dose: 90 mg Gabapentin (Neurontin Cap(*)) 800 mg PO TID [facility] Last Admin: 09/06/17 13:50 Dose: 800 mg Guaifenesin (Mucinex*) 600 mg PO BID [facility] Lorazepam (Ativan Tab(*)) 0 - 6 mg PO .PER [facility] [employer] JOJO PRN Reason: Protocol Last Admin: 09/03/17 21:31 Dose: 2 mg Lorazepam (Ativan Inj*) 0 - 6 mg IM .PER [facility] PROTOCOL [facility] PRN Reason: Protocol Magnesium Oxide (Magox 400 Tab*) 400 mg PO DAILY [facility] Last Admin: 09/06/17 07:37 Dose: 400 mg Multivitamins (Theragran Tab*) 1 tab PO DAILY [facility] Last Admin: 09/06/17 07:37 Dose: 1 tab Nicotine (Nicotine Inhaler*) 10 mg INH Q2H PRN PRN Reason: CRAVING Last Admin: 09/06/17 07:40 Dose: 10 mg Nicotine Polacrilex (Nicotine Gum*) 2 mg PO Q2H PRN PRN Reason: CRAVING Last Admin: 09/06/17 07:40 Dose: 2 mg Quetiapine Fumarate (Seroquel Xr Tab*) 300 mg PO BEDTIME [facility] Last Admin: 09/05/17 21:17 Dose: 300 mg SOCIAL HISTORY: Smoker, Alcohol abuse. She is staying with the father of her two boys in his house. He has a job, and had custody of the boys when she lived in [place] Vital Signs Temp Pulse Resp BP Pulse Ox 98.3 F 80 13 133/78 97 09/06/17 07:31 09/06/17 13:46 09/06/17 16:03 09/06/17 13:46 09/06/17 07:31 EXAM: LUNGS: Clear HEART: reg rhythm ABDOMEN: Soft NEUROLOGIC: Alert, oriented. No focal weakness ASSESSMENT: 1. Failed neck surgery 2. Alcohol abuse PLAN: I will try to find out from the Pain Clinic why she was terminated. According to [facility], she received the one prescription from Dr. Rowley after she was discharged in June and never received another. It would be helpful to see any medical records from Dr. Arambula. Given her unreliability and recidivism, and history of alcohol abuse, she would be considered high risk for opioid management. Continue Gabapentin for now. I will follow
[2017-09-06] MEDS: QUEtiapine XR TAB* 300 MG PO SCH (20:52)
[2017-09-06] MEDS: guaiFENesin ER TAB 600 MG PO SCH (20:52)
[2017-09-07] MEDS: cloNIDine TAB* 0.1 MG PO SCH ×3 (07:53→21:26)
[2017-09-07] MEDS: DULoxetine DR CAP* 30 MG CAP.DR PO SCH (08:37)
[2017-09-07] MEDS: Vitamin THERAPEUTIC TAB PO SCH (08:37)
[2017-09-07] MEDS: Magnesium Oxide TAB* 400 MG PO SCH (08:38)
[2017-09-07] MEDS: Gabapentin CAP(*) 400 MG PO SCH ×3 (08:38→21:27)
[2017-09-07] MEDS: guaiFENesin ER TAB 600 MG PO SCH ×2 (08:39→21:28)
[2017-09-07] MEDS: Ibuprofen TAB* 600 MG PO PRN ×2 (10:38→17:35)
[2017-09-07] MEDS: cloNIDine TAB* 0.1 MG PO PRN (11:51)
[2017-09-07] MEDS: Nicotine GUM* 2 MG PO PRN (11:51)
--- NOTE | 2017-09-07 16:41 | PN ---
<Tonya Rasheed - Last Filed: 09/07/17 16:33> Subjective - Subjective Service Type: 83655 Hosp care 15 min low complexity Subjective: Ruma pleasant on approach. She c/o neck and back pain, she is agreeable to using Lidocaine patch. States she has social anxiety and it's hard for her to be around people this after she was noted to be social and congenial during medication education group. States she is anxious to go home, wants to attend Monday neurosurgeon appointment. Diaphoretic, reports this is r/t "going through the change". She is hoping to see for pain management, we discussed.fact that doesn't feel she is a candidate for opiate pain relief. Objective - Appearance Appearance: Thin Framed Dysmorphic Features: Yes Hygiene: Normal Grooming: Disheveled - Behavior Psychomotor Activities: Abnormal-Decreased Exhibits Abnormal Movement: Yes - Attitude and Relatedness Attitude and Relatedness: Superficially Cooperative Eye Contact: Poor - Speech Quality: Unpressured Latencies: Normal Quantity: Appropriate - Mood Patient's Decription of Mood: "Okay" - Affect Observed Affect: Depressed Affect Consistent with: Dysphoria - Thought Process Patient's Thought Process: Coherent Thought Content: No Passive Wish, No Suicidal Planning, No Homicidal Ideation, No Paranoid Ideation - Sensorium Experiencing Hallucinations: No, Sensorium is Clear Type of Hallucinations: Visual: No, Auditory: No, Command: No - Level of Consciousness Level of Consciousness: Agitated Orientation: Yes Intact, Yes Orientated to Time, Yes Orientated to Place, Yes Orientated to Person - Impulse Control Impulse Control: Poor - Insight and Judgement Insight and Judgement: Poor - Group Participation Particating in Group Activities: Yes - Medication Management Medication Management Adherence: Yes Assessment - Assessment Merits Inpatient Hospitalization: Consolidate Improvements, For Discharge Planning Inpatient DSM-V Dx: F10.230 Clinical Impression: 42 year old female with alcohol use d/o, PTSD, major depressive d/o presented to ED in the context of intoxication and grief r/t son's 2017, completed suicide. She has withdrawn from alcohol and methadone. Requires continued hospitalization for consolidation of improvements and discharge planning. Plan - Plan Treatment Plan: Name: RUMA SAM Birthdate: 1975 [id number] Medications: Current Medications Acetaminophen (Tylenol Tab*) 650 mg PO Q4H PRN PRN Reason: PAIN or TEMP > 101 F Al Hydrox/Mg Hydrox/Simethicone (Maalox Plus*) 30 ml PO Q4H PRN PRN Reason: INDIGESTION Albuterol (Ventolin Hfa Inhaler*) 2 puff INH Q4H PRN PRN Reason: SHORTNESS OF BREATH Clonidine HCl (Catapres Tab*) 0.1 mg PO BID PRN PRN Reason: ANXIETY Last Admin: 09/07/17 11:51 Dose: 0.1 mg Clonidine HCl (Catapres Tab*) 0.1 mg PO TID [facility] Last Admin: 09/07/17 14:45 Dose: 0.1 mg Device (Nicotine Mouth Piece*) 1 each INH .CARTRIDGE [facility] Duloxetine HCl (Cymbalta Cap*) 90 mg PO DAILY [facility] Last Admin: 09/07/17 08:37 Dose: 90 mg Gabapentin (Neurontin Cap(*)) 800 mg PO TID [facility] Last Admin: 09/07/17 14:44 Dose: 800 mg Guaifenesin (Mucinex*) 600 mg PO BID [facility] Last Admin: 09/07/17 08:39 Dose: 600 mg Ibuprofen (Motrin Tab*) 600 mg PO Q6H PRN PRN Reason: PAIN Last Admin: 09/07/17 10:38 Dose: 600 mg Lidocaine (Lidoderm 5% Patch*) 1 patch TRANSDERM DAILY [facility] Magnesium Oxide (Magox 400 Tab*) 400 mg PO DAILY [facility] Last Admin: 09/07/17 08:38 Dose: 400 mg Multivitamins (Theragran Tab*) 1 tab PO DAILY [facility] Last Admin: 09/07/17 08:37 Dose: 1 tab Nicotine (Nicotine Inhaler*) 10 mg INH Q2H PRN PRN Reason: CRAVING Last Admin: 09/06/17 07:40 Dose: 10 mg Nicotine Polacrilex (Nicotine Gum*) 2 mg PO Q2H PRN PRN Reason: CRAVING Last Admin: 09/07/17 11:51 Dose: 2 mg Pharmacy Profile Note (Lidocaine Patch Remove*) 1 note N/A 2100 [facility] Quetiapine Fumarate (Seroquel Xr Tab*) 300 mg PO BEDTIME [facility] Last Admin: 09/06/17 20:52 Dose: 300 mg <Amberly Ca - Last Filed: 09/08/17 09:01> Plan - Plan Treatment Plan: Name: RUMA SAM Birthdate: 1975 [id number] continue acute intensive psychiatric treatment. decrease to q30min observation. add lidocaine patches. obtain collateral from family members for discharge planning. Continued Medication Management: Continue Outpt Medication Medications: Current Medications Acetaminophen (Tylenol Tab*) 650 mg PO Q4H PRN PRN Reason: PAIN or TEMP > 101 F Al Hydrox/Mg Hydrox/Simethicone (Maalox Plus*) 30 ml PO Q4H PRN PRN Reason: INDIGESTION Albuterol (Ventolin Hfa Inhaler*) 2 puff INH Q4H PRN PRN Reason: SHORTNESS OF BREATH Clonidine HCl (Catapres Tab*) 0.1 mg PO BID PRN PRN Reason: ANXIETY Last Admin: 09/07/17 11:51 Dose: 0.1 mg Clonidine HCl (Catapres Tab*) 0.1 mg PO TID [facility] Last Admin: 09/07/17 21:26 Dose: 0.1 mg Device (Nicotine Mouth Piece*) 1 each INH .CARTRIDGE [facility] Duloxetine HCl (Cymbalta Cap*) 90 mg PO DAILY [facility] Last Admin: 09/07/17 08:37 Dose: 90 mg Gabapentin (Neurontin Cap(*)) 800 mg PO TID [facility] Last Admin: 09/07/17 21:27 Dose: 800 mg Guaifenesin (Mucinex*) 600 mg PO BID [facility] Last Admin: 09/07/17 21:28 Dose: Not Given Ibuprofen (Motrin Tab*) 600 mg PO Q6H PRN PRN Reason: PAIN Last Admin: 09/07/17 17:35 Dose: 600 mg Lidocaine (Lidoderm 5% Patch*) 1 patch TRANSDERM DAILY [facility] Last Admin: 09/07/17 17:36 Dose: 1 patch Magnesium Oxide (Magox 400 Tab*) 400 mg PO DAILY [facility] Last Admin: 09/07/17 08:38 Dose: 400 mg Multivitamins (Theragran Tab*) 1 tab PO DAILY [facility] Last Admin: 09/07/17 08:37 Dose: 1 tab Nicotine (Nicotine Inhaler*) 10 mg INH Q2H PRN PRN Reason: CRAVING Last Admin: 09/06/17 07:40 Dose: 10 mg Nicotine Polacrilex (Nicotine Gum*) 2 mg PO Q2H PRN PRN Reason: CRAVING Last Admin: 09/07/17 11:51 Dose: 2 mg Pharmacy Profile Note (Lidocaine Patch Remove*) 1 note N/A 2100 [facility] Last Admin: 09/07/17 21:28 Dose: 1 note Quetiapine Fumarate (Seroquel Xr Tab*) 300 mg PO BEDTIME [facility] Last Admin: 09/07/17 21:27 Dose: 300 mg - Discharge Plan Discharge Plan: Outpatient [facility]
--- NOTE | 2017-09-07 16:45 | PN ---
MHU: Group Therapy Note - Service Type Service Type: [id number] Group Psychotherapy - Medication Education Group: Patient was attentive and participatory in group, and remained in good behavioral control. Patient expressed positive insights regarding relevant treatment interventions. Patient stated understanding of material discussed and had appropriate questions.
[2017-09-07] MEDS: Lidocaine PATCH 5%* 1 PATCH TRANSDERM SCH (17:36)
[2017-09-07] MEDS: QUEtiapine XR TAB* 300 MG PO SCH (21:27)
[2017-09-07] MEDS: Lidocaine Patch REMOVE* 1 NOTE MISC SCH (21:28)
[2017-09-08] MEDS: cloNIDine TAB* 0.1 MG PO SCH ×3 (09:11→21:17)
[2017-09-08] MEDS: DULoxetine DR CAP* 30 MG CAP.DR PO SCH (09:11)
[2017-09-08] MEDS: Gabapentin CAP(*) 400 MG PO SCH ×3 (09:11→21:17)
[2017-09-08] MEDS: Lidocaine PATCH 5%* 1 PATCH TRANSDERM SCH (09:12)
[2017-09-08] MEDS: Magnesium Oxide TAB* 400 MG PO SCH (09:12)
[2017-09-08] MEDS: Vitamin THERAPEUTIC TAB PO SCH (09:12)
[2017-09-08] MEDS: guaiFENesin ER TAB 600 MG PO SCH ×2 (09:12→21:18)
[2017-09-08] MEDS: Ibuprofen TAB* 600 MG PO PRN ×2 (11:04→18:58)
[2017-09-08] MEDS: cloNIDine TAB* 0.1 MG PO PRN ×2 (12:09→18:59)
--- NOTE | 2017-09-08 14:00 | PN ---
Subjective - Subjective Service Type: 35042 Hosp care 15 min low complexity Subjective: Patient presented with concerns about being discharged due to limited insight and engagement in treatment. She states "you've already made up your mind, leave me alone." [employer] Repairer and social security specialist encouraged patient to communicate her plans when discharged. She declined to discuss further. Objective - Appearance Appearance: Thin Framed Dysmorphic Features: Yes Hygiene: Dirty Grooming: Disheveled - Behavior Psychomotor Activities: Normal Exhibits Abnormal Movement: No - Attitude and Relatedness Attitude and Relatedness: Withdrawn Eye Contact: Fair - Speech Quality: Unpressured Latencies: Normal Quantity: Terse - Mood Patient's Decription of Mood: "Upset" - Affect Observed Affect: Depressed Affect Consistent with: Dysphoria - Thought Process Patient's Thought Process: Circumstantial Thought Content: No Passive Wish, No Suicidal Planning, No Homicidal Ideation, No Paranoid Ideation - Sensorium Experiencing Hallucinations: No, Sensorium is Clear Type of Hallucinations: Visual: No, Auditory: No, Command: No - Level of Consciousness Level of Consciousness: Alert Orientation: Yes Intact, Yes Orientated to Time, Yes Orientated to Place, Yes Orientated to Person - Impulse Control Impulse Control: Poor - Insight and Judgement Insight and Judgement: Poor - Group Participation Particating in Group Activities: No - Medication Management Medication Management Adherence: Yes Assessment - Assessment Merits Inpatient Hospitalization: For Immediate Safety, For Stabilization, For Ongoing Evaluation, For Discharge Planning, Pending Safe DC Plan Inpatient DSM-V Dx: F10.230 Clinical Impression: Ruma is a 42yo female with a history of PTSD, major depressive d/o and alcohol use d/o. She presented to ED in the context of intoxication and grief related to son's completed suicide. She is actively withdrawing from alcohol and methadone and has poor insight into need for dual diagnoses treatment. She merits hospitalization for immediate safety and stabilization. Plan - Plan Treatment Plan: Name: RUMA SAM Birthdate: 1975 [id number] continue acute intensive psychiatric treatment. decrease to q30min observation. obtain collateral from family members for discharge planning. Continued Medication Management: Continue Outpt Medication Medications: Current Medications Acetaminophen (Tylenol Tab*) 650 mg PO Q4H PRN PRN Reason: PAIN or TEMP > 101 F Al Hydrox/Mg Hydrox/Simethicone (Maalox Plus*) 30 ml PO Q4H PRN PRN Reason: INDIGESTION Albuterol (Ventolin Hfa Inhaler*) 2 puff INH Q4H PRN PRN Reason: SHORTNESS OF BREATH Clonidine HCl (Catapres Tab*) 0.1 mg PO BID PRN PRN Reason: ANXIETY Last Admin: 09/08/17 12:09 Dose: 0.1 mg Clonidine HCl (Catapres Tab*) 0.1 mg PO TID [facility] Last Admin: 09/08/17 09:11 Dose: 0.1 mg Device (Nicotine Mouth Piece*) 1 each INH .[place]TRIDGE [facility] Duloxetine HCl (Cymbalta Cap*) 90 mg PO DAILY [facility] Last Admin: 09/08/17 09:11 Dose: 90 mg Gabapentin (Neurontin Cap(*)) 800 mg PO TID [facility] Last Admin: 09/08/17 09:11 Dose: 800 mg Guaifenesin (Mucinex*) 600 mg PO BID [facility] Last Admin: 09/08/17 09:12 Dose: Not Given Ibuprofen (Motrin Tab*) 600 mg PO Q6H PRN PRN Reason: PAIN Last Admin: 09/08/17 11:04 Dose: 600 mg Lidocaine (Lidoderm 5% Patch*) 1 patch TRANSDERM DAILY [facility] Last Admin: 09/08/17 09:12 Dose: 1 patch Magnesium Oxide (Magox 400 Tab*) 400 mg PO DAILY [facility] Last Admin: 09/08/17 09:12 Dose: 400 mg Multivitamins (Theragran Tab*) 1 tab PO DAILY [facility] Last Admin: 09/08/17 09:12 Dose: 1 tab Nicotine (Nicotine Inhaler*) 10 mg INH Q2H PRN PRN Reason: CRAVING Last Admin: 09/06/17 07:40 Dose: 10 mg Nicotine Polacrilex (Nicotine Gum*) 2 mg PO Q2H PRN PRN Reason: CRAVING Last Admin: 09/07/17 11:51 Dose: 2 mg Pharmacy Profile Note (Lidocaine Patch Remove*) 1 note N/A 2100 [facility] Last Admin: 09/07/17 21:28 Dose: 1 note Quetiapine Fumarate (Seroquel Xr Tab*) 300 mg PO BEDTIME [facility] Last Admin: 09/07/17 21:27 Dose: 300 mg - Discharge Plan Discharge Plan: [facility]
[2017-09-08] MEDS: QUEtiapine XR TAB* 300 MG PO SCH (21:17)
[2017-09-08] MEDS: Lidocaine Patch REMOVE* 1 NOTE MISC SCH (22:15)
[2017-09-09] MEDS: Gabapentin CAP(*) 400 MG PO SCH ×3 (09:15→20:42)
[2017-09-09] MEDS: Vitamin THERAPEUTIC TAB PO SCH (09:16)
[2017-09-09] MEDS: cloNIDine TAB* 0.1 MG PO SCH ×3 (09:16→20:43)
[2017-09-09] MEDS: Magnesium Oxide TAB* 400 MG PO SCH (09:16)
[2017-09-09] MEDS: DULoxetine DR CAP* 30 MG CAP.DR PO SCH (09:16)
[2017-09-09] MEDS: Lidocaine PATCH 5%* 1 PATCH TRANSDERM SCH (09:17)
[2017-09-09] MEDS: Ibuprofen TAB* 600 MG PO PRN ×2 (09:17→15:57)
[2017-09-09] MEDS: guaiFENesin ER TAB 600 MG PO SCH ×2 (09:18→20:43)
[2017-09-09] MEDS: cloNIDine TAB* 0.1 MG PO PRN ×2 (10:45→18:17)
[2017-09-09] MEDS: Nicotine GUM* 2 MG PO PRN (10:45)
[2017-09-09] MEDS: Lidocaine Patch REMOVE* 1 NOTE MISC SCH (21:56)
[2017-09-09] MEDS: QUEtiapine XR TAB* 300 MG PO SCH (22:33)
[2017-09-10] MEDS: DULoxetine DR CAP* 30 MG CAP.DR PO SCH (09:10)
[2017-09-10] MEDS: Gabapentin CAP(*) 400 MG PO SCH ×3 (09:10→22:25)
[2017-09-10] MEDS: cloNIDine TAB* 0.1 MG PO SCH ×3 (09:11→22:27)
[2017-09-10] MEDS: Vitamin THERAPEUTIC TAB PO SCH (09:11)
[2017-09-10] MEDS: Magnesium Oxide TAB* 400 MG PO SCH (09:11)
[2017-09-10] MEDS: Ibuprofen TAB* 600 MG PO PRN ×2 (09:12→17:52)
[2017-09-10] MEDS: guaiFENesin ER TAB 600 MG PO SCH ×2 (09:13→22:27)
[2017-09-10] MEDS: Lidocaine PATCH 5%* 1 PATCH TRANSDERM SCH ×2 (11:26→12:18)
[2017-09-10] MEDS: cloNIDine TAB* 0.1 MG PO PRN ×2 (12:19→19:37)
[2017-09-10] MEDS: Nicotine GUM* 2 MG PO PRN (12:19)
--- NOTE | 2017-09-10 22:16 | PN ---
Subjective - Subjective Date of Service: 09/10/17 Service Type: 14833 Hosp care 15 min low complexity Subjective: Irina reports she is getting better. Still experiencing ups and down of mood with anxiety. Denies psychosis, SI or HI. Compliant with mes and groups. Objective - Appearance Appearance: Obese Dysmorphic Features: No Hygiene: Normal Grooming: Well Kept - Behavior Psychomotor Activities: Normal Exhibits Abnormal Movement: No - Attitude and Relatedness Attitude and Relatedness: Cooperative Eye Contact: Good - Speech Quality: Unpressured Latencies: Normal Quantity: Appropriate - Mood Patient's Decription of Mood: "Sad" - Affect Observed Affect: Constricted Affect Consistent with: Dysphoria - Thought Process Patient's Thought Process: Coherent, Goal Directed Thought Content: No Passive Wish, No Suicidal Planning, No Homicidal Ideation, No Paranoid Ideation - Sensorium Experiencing Hallucinations: No, Sensorium is Clear Type of Hallucinations: Visual: No, Auditory: No, Command: No - Level of Consciousness Level of Consciousness: Alert Orientation: Yes Intact, Yes Orientated to Time, Yes Orientated to Place, Yes Orientated to Person - Impulse Control Impulse Control: Intact - Insight and Judgement Insight and Judgement: Fair - Group Participation Particating in Group Activities: Yes - Medication Management Medication Management Adherence: Yes Assessment - Assessment Merits Inpatient Hospitalization: For Immediate Safety, For Stabilization, Pending Safe DC Plan Inpatient DSM-V Dx: F10.230 Plan - Plan Treatment Plan: Name: RUMA SAM Birthdate: 1975 [id number] Continued Medication Management: Continue Outpt Medication Medications: Current Medications Acetaminophen (Tylenol Tab*) 650 mg PO Q4H PRN PRN Reason: PAIN or TEMP > 101 F Last Admin: 09/10/17 12:19 Dose: 650 mg Al Hydrox/Mg Hydrox/Simethicone (Maalox Plus*) 30 ml PO Q4H PRN PRN Reason: INDIGESTION Albuterol (Ventolin Hfa Inhaler*) 2 puff INH Q4H PRN PRN Reason: SHORTNESS OF BREATH Clonidine HCl (Catapres Tab*) 0.1 mg PO BID PRN PRN Reason: ANXIETY Last Admin: 09/10/17 19:37 Dose: 0.1 mg Clonidine HCl (Catapres Tab*) 0.1 mg PO TID [facility] Last Admin: 09/10/17 14:07 Dose: 0.1 mg Device (Nicotine Mouth Piece*) 1 each INH .CARTRIDGE [facility] Duloxetine HCl (Cymbalta Cap*) 90 mg PO DAILY [facility] Last Admin: 09/10/17 09:10 Dose: 90 mg Gabapentin (Neurontin Cap(*)) 800 mg PO TID [facility] Last Admin: 09/10/17 14:07 Dose: 800 mg Guaifenesin (Mucinex*) 600 mg PO BID [facility] Last Admin: 09/10/17 09:13 Dose: Not Given Ibuprofen (Motrin Tab*) 600 mg PO Q6H PRN PRN Reason: PAIN Last Admin: 09/10/17 17:52 Dose: 600 mg Lidocaine (Lidoderm 5% Patch*) 1 patch TRANSDERM DAILY [facility] Last Admin: 09/10/17 12:18 Dose: 1 patch Magnesium Oxide (Magox 400 Tab*) 400 mg PO DAILY [facility] Last Admin: 09/10/17 09:11 Dose: 400 mg Multivitamins (Theragran Tab*) 1 tab PO DAILY [facility] Last Admin: 09/10/17 09:11 Dose: 1 tab Nicotine (Nicotine Inhaler*) 10 mg INH Q2H PRN PRN Reason: CRAVING Last Admin: 09/06/17 07:40 Dose: 10 mg Nicotine Polacrilex (Nicotine Gum*) 2 mg PO Q2H PRN PRN Reason: CRAVING Last Admin: 09/10/17 12:19 Dose: 2 mg Pharmacy Profile Note (Lidocaine Patch Remove*) 1 note N/A 2100 [facility] Last Admin: 09/09/17 21:56 Dose: 1 note Quetiapine Fumarate (Seroquel Xr Tab*) 300 mg PO BEDTIME [facility] Last Admin: 09/09/17 22:33 Dose: 300 mg - Discharge Plan Discharge Plan: Drug/Alcohol Rehab
[2017-09-10] MEDS: QUEtiapine XR TAB* 300 MG PO SCH (22:26)
[2017-09-10] MEDS: Lidocaine Patch REMOVE* 1 NOTE MISC SCH (22:34)
[2017-09-11] MEDS ORDERED: Nicotine PATCH 21 MG/24 HR* PATCH TRANSDERM SCH (08:00)
[2017-09-11 09:35] VITALS: BP 107/68
[2017-09-11] MEDS: Lidocaine PATCH 5%* 1 PATCH TRANSDERM SCH (10:13)
[2017-09-11] MEDS: Vitamin THERAPEUTIC TAB PO SCH (10:14)
[2017-09-11] MEDS: Magnesium Oxide TAB* 400 MG PO SCH (10:14)
[2017-09-11] MEDS: cloNIDine TAB* 0.1 MG PO SCH ×2 (10:14→13:16)
[2017-09-11] MEDS: Gabapentin CAP(*) 400 MG PO SCH ×2 (10:14→13:16)
[2017-09-11] MEDS: DULoxetine DR CAP* 30 MG CAP.DR PO SCH (10:14)
[2017-09-11] MEDS: guaiFENesin ER TAB 600 MG PO SCH (10:49)
[2017-09-11] MEDS: Ibuprofen TAB* 600 MG PO PRN (11:13)
[2017-09-11] MEDS ORDERED: Nicotine Patch Removal NOTE FOLLOW UP SCH (21:00)
== END 2017-09-11 13:25 | disposition home or self-care (01) | DRG 775 ==
LOC: ED 01:30 → BSU 08:22
PROVIDERS: ADMIT Psychiatry & Neurology Psychiatry; ATTEND Psychiatry & Neurology Psychiatry
PROC: HZ2ZZZZ Detoxification Services for Substance Abuse Treatment (ICD-10-PCS; principal; 2017-09-03)
DX: F10.230 Alcohol dependence with withdrawal, uncomplicated (principal); F10.229 Alcohol dependence with intoxication, unspecified; F33.2 Major depressive disorder, recurrent severe without psychotic features; K76.0 Fatty (change of) liver, not elsewhere classified; F43.10 Post-traumatic stress disorder, unspecified; Y90.6 Blood alcohol level of 120-199 mg/100 ml; J45.909 Unspecified asthma, uncomplicated; F17.210 Nicotine dependence, cigarettes, uncomplicated; Z79.891 Long term (current) use of opiate analgesic; Z79.899 Other long term (current) drug therapy; Z81.1 Family history of alcohol abuse and dependence; Z81.3 Family history of other psychoactive substance abuse and dependence
CPT/HCPCS: 36415; 80048; 80053; 80061; 80307; 80320; 81003; 81015; 83036; 83690; 85025; 90853; 93005; 99222; 99231; 99232; 99238; 99284; A9270-GY; G0480; J2405

== ENCOUNTER 2018-04-09 20:39 | Inpatient (IN) | payer MEDICAID, OTHER ==
[2018-04-09] MEDS ORDERED: NS 0.9% 1000 ML*IV.FLUID IV ONE (21:04)
--- NOTE | 2018-04-09 21:05 | ED ---
Complex/Multi-Sys Presentation - HPI Summary HPI Summary: A 42 y/o F LISSETTE presents to ED with c/o weakness onset 3 days ago. Associated sx : vomiting last episode 6 hours [employer]; fever; polydipsia. Denies diarrhea. Her last BM was this AM, the stool was brown colored. At bedside, pt is trembling and states "my whole body hurts." She did not take any medication [employer]. PMHx: anxiety, depression; knee and back surgery. Denies DM. She says her last ETOH intake was 3-4 days ago. - History Of Current Complaint Chief Complaint: EDGeneral Hx Obtained From: Patient Onset/Duration: Gradual Onset, Lasting Days, Still Present Timing: Constant Severity Currently: Moderate Severity Initially: Moderate Associated Signs And Symptoms: Positive: Weakness, Vomiting, Other - pos: polydipsia. Negative: Diarrhea, Melena - Allergies/Home Medications Allergies/Adverse Reactions: Allergies Allergy/AdvReac Type Severity Reaction Status Date / Time pregabalin Allergy Anaphylatic Verified 09/03/17 02:32 Shock PMH/Surg Hx/FS Hx/Imm Hx Previously Healthy: No Endocrine/Hematology History: Denies: Hx Diabetes Cardiovascular History: Reports: Hx Hypertension Denies: Hx Pacemaker/ICD Respiratory History: Reports: Hx Asthma GI History: Reports: Other GI Disorders - hx of fatty liver disease Musculoskeletal History: Reports: Hx Back Problems, Other Musculoskeletal History - hx of degenerative disc disease Sensory History: Reports: Hx Contacts or Glasses Denies: Hx Hearing Aid Opthamlomology History: Reports: Hx Contacts or Glasses Neurological History: Reports: Hx Seizures - d/t etoh withdrawal 7 years ago Psychiatric History: Reports: Hx Anxiety, Hx Depression, Hx Panic Disorder - ANXIETY, Hx Inpatient Treatment - following partner's suicide in April,, Hx Substance Abuse Denies: Hx Eating Disorder, Hx of Violent Episodes Against Others - Surgical History Surgery Procedure, Year, and Place: 07/03 &05/03 [facility] X2. - Immunization History Date of Tetanus Vaccine: utd Date of Influenza Vaccine: none Infectious Disease History: No Infectious Disease History: Denies: Traveled Outside the [place] in Last 30 Days - Family History Known Family History: Positive: Other Negative: Diabetes Family History: alcoholism, SI - Social History Occupation: Unemployed Lives: With Family Alcohol Use: Daily Alcohol Amount: 1/5 a week Hx Substance Use: No Substance Use Type: Reports: None Substance Use Comment - Amount & Last Used: used a couple weeks ago Hx Tobacco Use: Yes Smoking Status (MU): Heavy Every Day Tobacco Smoker Type: Cigarettes Amount Used/How Often: states she smokes 1 PPD Have You Smoked in the Last Year: Yes Review of Systems Positive: Fever, Other - pos: polydipsia Positive: Vomiting. Negative: Diarrhea, Other - neg: melena Positive: Weakness All Other Systems Reviewed And Are Negative: Yes Physical Exam - Summary Physical Exam Summary: GENERAL: Patient is a well-developed, nourished and ill-appearing FEMALE who has coarse tremors while lying in the stretcher. Patient is not in any acute respiratory distress. HEAD AND FACE: No signs of trauma. No ecchymosis, hematomas or skull depressions. No sinus tenderness. EYES: PERRLA, EOMI x 2, No injected conjunctiva, no nystagmus. EARS: Hearing grossly intact. Ear canals and tympanic membranes are within normal limits. MOUTH: Oropharynx within normal limits. NECK: Supple, trachea is midline, no adenopathy, no JVD, no carotid bruit, no c- spine tenderness, neck with full ROM. CHEST: Symmetric, no tenderness at palpation LUNGS: Clear to auscultation bilaterally. No wheezing or crackles. CVS: Tachy, S1 and S2 present, no murmurs or gallops appreciated. ABDOMEN: Soft, non-tender. No signs of distention. No rebound no guarding, and no masses palpated. Bowel sounds are normal. EXTREMITIES: FROM in all major joints, no edema, no cyanosis or clubbing. NEURO: Alert and oriented x 3. No acute neurological deficits. Speech is normal and follows commands. SKIN: Dry and warm. Pale. Triage Information Reviewed: Yes Vital Signs On Initial Exam: Initial Vitals Temp Pulse Resp BP Pulse Ox 97.5 F 130 38 104/81 96 04/09/18 20:54 04/09/18 20:54 04/09/18 20:54 04/09/18 20:54 04/09/18 20:54 Vital Signs Reviewed: Yes Procedures - Central Line 1 Central Line Procedure: betadine prep, sterile drapes applied, sterile dressing applied Central Line Position: internal jugular (R) - with U/S guidance Anesthesia: Lidocaine - 2% cc's of anesthesia: 5 Complications: none Central Line Post Position: sutured, good blood return, position confirmed w/ CXR Diagnostics - Vital Signs Vital Signs Temp Pulse Resp BP Pulse Ox 04/09/18 20:54 97.5 F 130 38 104/81 96 - Laboratory Result Diagrams: 04/09/18 21:54 04/09/18 21:55 Lab Statement: Any lab studies that have been ordered have been reviewed, and results considered in the medical decision making process. - Radiology CXR Xray Interpretation: Positive (See Comments) - Confirm triple lumen CVC placement to R IJ. Pending official report. Radiology Interpretation Completed By: ED Physician - CT C/A/P CT CT Interpretation: Positive (See Comments) - Chest IMPRESSION: There is patchy opacity at the lung bases suspicious for pneumonitis and/or atelcetasis. A/P IMPRESSION: No acute CT pathology in the abd or pelvis. ED provider has reviewed this report. CT Interpretation Completed By: Radiologist - EKG 2110 Cardiac Rate: Tachycardia - 123bpm EKG Rhythm: Sinus Tachycardia EKG Interpretation: nml axis, nml interval, no ischemic changes 2320 Cardiac Rate: Tachycardia - 118bpm EKG Rhythm: Sinus Tachycardia Re-Evaluation - Re-Evaluation 1 Re-Evaluation Time: 21:47 Change: Worse Comment: Pt c/o diffuse body pain and is requesting pain medication. PICC line attempted but unsuccessful, will perform central line. 2 Re-Evaluation Time: 22:15 Comment: Placing CVC. 2 amps bicarb and vigorous hydration given. Given IV antibiotics. 3 Re-Evaluation Time: 23:00 Change: Improved Comment: Pt looks better after completion of fluids. 4 Re-Evaluation Time: 23:10 Change: Improved 5 Re-Evaluation Time: 23:29 Complex Multi-Symp Course/Dx Course Of Treatment: Pt is a 42 y/o ill-appearing F BIBA presenting with weakness onset 3 days ago. Associated sx: vomiting last episode 6 hours [employer]; fever; polydipsia. Denies diarrhea, melena. Her last BM was this AM. Last ETOH drink was 3-4 days ago. After additional discussion, pt states her last drink was yesterday. ETOH is 133. Central line procedure at 2215. Pt was found to have severe metabolic acidosis, pt given 2 amps bicarb, followed by vigorous hydration. Pt given IV antibiotics. Pt looks better after completion of fluids. Will Repeat ABG. pH is improved. Hospitalist paged at 0113. Consulted with Dr. Wilkes, hospitalist, who will accept pt to ICU. - Diagnoses Provider Diagnoses: UTI (urinary tract infection), Sepsis, Metabolic acidosis - Physician Notifications Discussed Care Of Patient With: Alyx Wilkes - hospitalist Time Discussed With Above Provider: 01:52 Instructed by Provider To: Admit As Inpatient - Critical Care Time Critical Care Time: 75-104 min - 75 mins Discharge - Sign-Out/Discharge Documenting (check all that apply): Patient Departure - ADM - Discharge Plan Disposition: ADMITTED TO [facility] Referrals: No Primary Care Phys,NOPCP [Primary Care Provider] - - Attestation Statements Document Initiated by Scribe: Yes Documenting Scribe: Tariq Clarke Provider For Whom Scribe is Documenting (Include Credential): Dr. Jamia Norwood MD Scribe Attestation: I, Tariq Clarke, scribed for Dr. Jamia Norwood MD on 04/10/18 at 0156.
[2018-04-09] MEDS ORDERED: Lidocaine 2% EPI 1:200000 MPF*10-20 ML VIAL ONE (22:00)
[2018-04-09 22:05] LABS: ABS Basophils 0.1 10^3/ul (0-0.2); ABS Eosinophils 0 10^3/ul (0-0.6); ABS Lymphocytes 0.4 10^3/ul (1.0-4.8); ABS Neutrophils 15.9 10^3/ul (1.5-7.7); ABS Nucleated RBC 0 10^3/ul; Eosinophil % 0 % (0-6); Hematocrit 45 % (35-47); Hemoglobin 14.4 g/dl (12.0-16.0); Lymphocyte % 2.4 % (25-47); Mean Corpuscular HGB Conc 32 g/dl (31-36); Mean Corpuscular Hemoglobin 33 pg (27-31); Mean Corpuscular Volume 102 fL (80-97); Mean Platelet Volume 8.2 um3 (7.4-10.4); Nucleated Red Blood Cells % 0.1; Platelet Count 223 10^3/ul (150-450); Red Blood Count 4.41 10^6/ul (4.00-5.40); Red Cell Distribution Width 16 % (10.5-15); White Blood Count 17.5 10^3/ul (3.5-10.8)
[2018-04-09 22:12] LABS: INR 0.88 (0.77-1.02)
[2018-04-09 22:27] LABS: EGFR Non-African American 26.3 (>60)
[2018-04-09] MEDS ORDERED: Sodium Bicarbonate 8.4% IV* 50 ML VIAL ONE (22:30)
[2018-04-09] MEDS ORDERED: Sodium Bicarbonate 8.4%* 50 ML SYRINGE ONE (22:31)
[2018-04-09] MEDS ORDERED: Piperacillin/Tazobac ADVAN(*) 3.375 GM in NS 0.9% 100 ML* 100 ML IVPB ONE (22:37)
[2018-04-09] MEDS ORDERED: Vancomycin(*) 1,000 MG in NS 0.9% 250 ML* 250 ML IVPB ONE (22:37)
[2018-04-09] MEDS ORDERED: Thiamine IV* 100 MG, Folic Acid IV* 1 MG, Multiple Vitamin IV ADULT* 10 ML in NS 0.9% 1... IV ONE (22:47)
[2018-04-09] MEDS ORDERED: Metoclopramide IV* 5 MG/ML 2 ML VIAL ONE (22:47)
[2018-04-09] MEDS ORDERED: LORazepam INJ* 2 MG/ML 1 ML VIAL IV PUSH ONE (22:50)
[2018-04-09] MEDS ORDERED: Ondansetron INJ* 2 MG/ML VIAL IV ONE (22:52)
[2018-04-09] MEDS ORDERED: Ondansetron INJ* 2 MG/ML VIAL ONE (22:55)
[2018-04-09] MEDS ORDERED: Pantoprazole IV* 40 MG IV ONE (23:23)
[2018-04-09] MEDS ORDERED: Sodium Bicarbonate 8.4%* 50 ML SYRINGE IV ONE ×2 (23:34→23:36)
[2018-04-09 23:36] LABS: Urine Appearance Cloudy; Urine Blood 3+ (Negative); Urine Color Yellow; Urine Ketones 1+ (Negative); Urine Protein 2+(100 mg/dL) (Negative); Urine Red Blood Cell 2+(6-10/hpf) (Absent); Urine Specific Gravity 1.014 (1.010-1.030); Urine Urobilinogen Negative (Negative); Urine White Blood Cell 1+(6-10/hpf) (Absent)
[2018-04-10] MEDS ORDERED: NS 0.9% 1000 ML* 1,000 ML IV ONE (00:21)
--- NOTE | 2018-04-10 01:03 | RAD ---
EXAM: CT Abdomen and Pelvis Without Intravenous Contrast CLINICAL HISTORY: 42 years old, female; Pain; Abdominal pain; Generalized; Chest pain; Type not specified; Patient HX: Pt reports n/v, general body aches and fevers at home x3 days. Pt is alcoholic, last drink 3 days ago. Tremors noted. ; Additional info: Abd pain TECHNIQUE: Axial computed tomography images of the abdomen and pelvis without intravenous contrast. All CT scans at this facility use at least one of these dose optimization techniques: automated exposure control; mA and/or kV adjustment per patient size (includes targeted exams where dose is matched to clinical indication); or iterative reconstruction. Coronal and sagittal reformatted images were created and reviewed. COMPARISON: No relevant prior studies available. FINDINGS: Lung bases: Unremarkable. No mass. No consolidation. ABDOMEN: Liver: Unremarkable. Gallbladder and bile ducts: Unremarkable. No calcified stones. No ductal dilation. Pancreas: Unremarkable. No ductal dilation. Spleen: Unremarkable. No splenomegaly. Adrenals: Unremarkable. No mass. Kidneys and ureters: Unremarkable. No obstructing stones. No hydronephrosis. Stomach and bowel: Unremarkable. No obstruction. No mucosal thickening. PELVIS: Appendix: No findings to suggest acute appendicitis. Bladder: A Hugo catheter is present in the urinary bladder. No stones. Reproductive: Unremarkable as visualized. ABDOMEN and PELVIS: Intraperitoneal space: Unremarkable. No free air. No significant fluid collection. Bones/joints: There are degenerative changes of the spine. No acute fracture. No dislocation. Soft tissues: Unremarkable. Vasculature: There are atherosclerotic aortic and iliac and femoral artery calcifications. There are calcified phleboliths in the pelvis. No abdominal aortic aneurysm. Lymph nodes: Unremarkable. No enlarged lymph nodes. Other findings: Findings in the lower thorax are described on the CT chest dictation of the same day. IMPRESSION: No acute CT pathology in the abdomen or pelvis. EXAM: CT Chest Without Intravenous Contrast CLINICAL HISTORY: 42 years old, female; Pain; Abdominal pain; Generalized; Chest pain; Type not specified; Patient HX: Pt reports n/v, general body aches and fevers at home x3 days. Pt is alcoholic, last drink 3 days ago. Tremors noted. ; Additional info: Abd pain TECHNIQUE: Axial computed tomography images of the chest without intravenous contrast. All CT scans at this facility use at least one of these dose optimization techniques: automated exposure control; mA and/or kV adjustment per patient size (includes targeted exams where dose is matched to clinical indication); or iterative reconstruction. Coronal and sagittal reformatted images were created and reviewed. COMPARISON: No relevant prior studies available. FINDINGS: Lungs: There is patchy opacity at the lung bases suspicious for pneumonitis and/or atelectasis. There is mild paraseptal emphysema. Pleural space: Unremarkable. No pneumothorax. No significant effusion. Heart: Unremarkable. No cardiomegaly. No significant pericardial effusion. Bones/joints: There are postoperative changes of the lower cervical spine. No acute fracture. No dislocation. Soft tissues: Unremarkable. Vasculature: Unremarkable. No thoracic aortic aneurysm. Lymph nodes: Unremarkable. No enlarged lymph nodes. Intraperitoneal space: Findings in the upper abdomen are described in the CT abdomen and pelvis dictation of the same day. IMPRESSION: There is patchy opacity at the lung bases suspicious for pneumonitis and/or atelectasis. To contact [facility] with a general question: Operations Center - [phone] For direct physician to physician contact: Physician Hotline - [phone] [facility] ([facility] Facility ID #[id number])
[2018-04-10] MEDS ORDERED: LORazepam INJ* 2 MG/ML 1 ML VIAL IV PUSH PRN (02:26)
[2018-04-10] MEDS ORDERED: Thiamine IV* 100 MG/ML 2 ML VIAL IV ONE (02:28)
[2018-04-10] MEDS ORDERED: Sodium Bicarbonate 8.4% IV* 100 MEQ in NS 0.45% 1000 ML BAG* 1,000 ML IV SCH (03:00)
[2018-04-10] MEDS ORDERED: Piperacillin/Tazobac ADVAN(*) 3.375 GM in NS 0.9% 100 ML* 100 ML IVPB SCH (04:00)
[2018-04-10 05:24] LABS: ABS Basophils 0 10^3/ul (0-0.2); ABS Eosinophils 0 10^3/ul (0-0.6); ABS Lymphocytes 0.6 10^3/ul (1.0-4.8); ABS Monocytes 0.4 10^3/ul (0-0.8); ABS Neutrophils 3.2 10^3/ul (1.5-7.7); ABS Nucleated RBC 0 10^3/ul; Eosinophil % 0 % (0-6); Hematocrit 34 % (35-47); Hemoglobin 11.6 g/dl (12.0-16.0); Mean Corpuscular HGB Conc 34 g/dl (31-36); Mean Corpuscular Hemoglobin 33 pg (27-31); Mean Corpuscular Volume 96 fL (80-97); Mean Platelet Volume 7.2 um3 (7.4-10.4); Nucleated Red Blood Cells % 0.2; Platelet Count 133 10^3/ul (150-450); Red Blood Count 3.53 10^6/ul (4.00-5.40); Red Cell Distribution Width 16 % (10.5-15); White Blood Count 4.1 10^3/ul (3.5-10.8)
[2018-04-10 05:36] LABS: EGFR Non-African American 53.4 (>60)
--- NOTE | 2018-04-10 07:54 | RAD ---
HISTORY: weakness COMPARISONS: None VIEWS: 1: frontal AP view of the chest at 10:53 PM FINDINGS: LINES AND TUBES: A central venous catheter is noted from a right internal jugular vein approach with the tip overlying the cavoatrial junction.. CARDIOMEDIASTINAL SILHOUETTE: The cardiomediastinal silhouette is normal for portable technique. PLEURA: The costophrenic angles are sharp. No pleural abnormalities are noted. LUNG PARENCHYMA: The lungs are clear. ABDOMEN: The upper abdomen is clear. There is no subphrenic gas. BONES AND SOFT TISSUES: The patient is status post anterior cervical fusion. IMPRESSION: LINES AND TUBES ABOVE. NO ACTIVE CARDIOPULMONARY DISEASE. R1
[2018-04-10 08:26] LABS: INR 0.92 (0.77-1.02)
[2018-04-10] MEDS ORDERED: Morphine VIAL* 4 MG/ML VIAL (1 ml vial) IV PRN (09:08)
[2018-04-10] MEDS ORDERED: Ondansetron INJ* 2 MG/ML VIAL IV PRN (09:08)
--- NOTE | 2018-04-10 09:12 | PN ---
Date of Service: 04/10/18 Critical Care Services: 42F with h/o alcoholism presents with ams. Found to have severe metabolic acidosis 2/2 alcoholic keto acidos vs starvation ketosis. 04/10: Patient more awake. Feeling slightly better. Vital Signs: Temp Pulse Resp BP SpO2 FiO2 99.9 F 116 23 130/80 98 21 04/10/18 09:00 04/10/18 09:00 04/10/18 09:00 04/10/18 09:00 04/10/18 09:00 04/10 05:25 Physical Exam: Gen - uncomfortable appearing HEENT - ncat, eomi, perrl Neck - +RIJ TLC CV - s1/s2, no murmur, +tachy lungs - cta, no wheeze abd - soft, nt, nd Ext - no cce Neuro - tremulous, following commands Fluid Balance (Past 24 Hours): I= O= Net Intake & Output 04/08/18 04/09/18 04/10/18 04/11/18 06:59 06:59 06:59 06:59 Intake Total 5425 Output Total 2074 425 Balance 3350 -425 Weight 65.7 kg Intake: IV Fluids 5150 IVPB 260 1/2 ns with sod bicarb 260 Medicated IV 15 zosyn 15 Output: Hugo 2074 Straight Cath 425 Labs: Laboratory Results - last 24 hr 04/09/18 04/09/18 04/09/18 21:30 21:31 21:54 WBC 17.5 H RBC 4.41 Hgb 14.4 Hct 45 MCV 102 H MCH 33 H MCHC 32 RDW 16 H Plt Count 223 MPV 8.2 Neut % (Auto) 91.3 H Lymph % (Auto) 2.4 L [place] % (Auto) 5.9 Eos % (Auto) 0 Baso % (Auto) 0.4 Absolute Neuts (auto) 15.9 H Absolute Lymphs (auto) 0.4 L Absolute Monos (auto) 1.0 H Absolute Eos (auto) 0 Absolute Basos (auto) 0.1 Absolute Nucleated RBC 0 Nucleated RBC % 0.1 INR (Anticoag Therapy) APTT ABG pH ABG pCO2 ABG pO2 ABG HCO3 ABG O2 Saturation ABG Base Excess Sodium Potassium Chloride Carbon Dioxide Anion Gap BUN Creatinine Est GFR ( Amer) Est GFR (Non-Af Amer) BUN/Creatinine Ratio Glucose POC Glucose (mg/dL) 203 H Serum Osmolality Lactic Acid Calcium Phosphorus Magnesium Total Bilirubin AST ALT Alkaline Phosphatase Ammonia Total Creatine Kinase Troponin I C-Reactive Protein Total Protein Albumin Globulin Albumin/Globulin Ratio Amylase Lipase Urine Color Urine Appearance Urine pH Ur Specific [place] Urine Protein Urine Ketones Urine Blood Urine Nitrate Urine Bilirubin Urine Urobilinogen Ur Leukocyte Esterase Urine WBC (Auto) Urine RBC (Auto) Ur Squamous Epith Cells Urine Bacteria Hyaline Casts Granular Casts Urine Glucose Urine Opiates Screen Ur Barbiturates Screen Ur Phencyclidine Scrn Ur Amphetamines Screen U Benzodiazepines Scrn Urine Cocaine Screen U Cannabinoids Screen Serum Alcohol Influenza A (Rapid) Negative Influenza B (Rapid) Negative Blood Type Antibody Screen 04/09/18 04/09/18 04/09/18 21:54 21:54 21:55 WBC RBC Hgb Hct MCV MCH MCHC RDW Plt Count MPV Neut % (Auto) Lymph % (Auto) [place] % (Auto) Eos % (Auto) Baso % (Auto) Absolute Neuts (auto) Absolute Lymphs (auto) Absolute Monos (auto) Absolute Eos (auto) Absolute Basos (auto) Absolute Nucleated RBC Nucleated RBC % INR (Anticoag Therapy) 0.88 APTT 33.4 ABG pH ABG pCO2 ABG pO2 ABG HCO3 ABG O2 Saturation ABG Base Excess Sodium 133 L Potassium 3.8 Chloride 89 L Carbon Dioxide < 7 L* Anion Gap Not Reportable BUN 17 Creatinine 2.05 H Est GFR ( Amer) 31.8 Est GFR (Non-Af Amer) 26.3 BUN/Creatinine Ratio 8.3 Glucose 230 H POC Glucose (mg/dL) Serum Osmolality Lactic Acid 6.8 H* Calcium 8.3 L Phosphorus Magnesium Total Bilirubin 0.40 AST 79 H ALT 61 H Alkaline Phosphatase 130 H Ammonia Total Creatine Kinase 39 Troponin I 0.00 C-Reactive Protein 9.23 H Total Protein 7.6 Albumin 4.3 Globulin 3.3 Albumin/Globulin Ratio 1.3 Amylase 88 Lipase 177 H Urine Color Urine Appearance Urine pH Ur Specific [place] Urine Protein Urine Ketones Urine Blood Urine Nitrate Urine Bilirubin Urine Urobilinogen Ur Leukocyte Esterase Urine WBC (Auto) Urine RBC (Auto) Ur Squamous Epith Cells Urine Bacteria Hyaline Casts Granular Casts Urine Glucose Urine Opiates Screen Ur Barbiturates Screen Ur Phencyclidine Scrn Ur Amphetamines Screen U Benzodiazepines Scrn Urine Cocaine Screen U Cannabinoids Screen Serum Alcohol 133 H Influenza A (Rapid) Influenza B (Rapid) Blood Type Antibody Screen 04/09/18 04/09/18 04/09/18 21:56 22:06 23:21 WBC RBC Hgb Hct MCV MCH MCHC RDW Plt Count MPV Neut % (Auto) Lymph % (Auto) [place] % (Auto) Eos % (Auto) Baso % (Auto) Absolute Neuts (auto) Absolute Lymphs (auto) Absolute Monos (auto) Absolute Eos (auto) Absolute Basos (auto) Absolute Nucleated RBC Nucleated RBC % INR (Anticoag Therapy) APTT ABG pH < 7.00 L* ABG pCO2 < 20 L ABG pO2 124 H ABG HCO3 1.6 L* ABG O2 Saturation 98.0 ABG Base Excess -29.9 L Sodium Potassium Chloride Carbon Dioxide Anion Gap BUN Creatinine Est GFR ( Amer) Est GFR (Non-Af Amer) BUN/Creatinine Ratio Glucose POC Glucose (mg/dL) Serum Osmolality Lactic Acid Calcium Phosphorus Magnesium Total Bilirubin AST ALT Alkaline Phosphatase Ammonia Total Creatine Kinase Troponin I C-Reactive Protein Total Protein Albumin Globulin Albumin/Globulin Ratio Amylase Lipase Urine Color Yellow Urine Appearance Cloudy Urine pH 5.0 Ur Specific [place] 1.014 Urine Protein 2+(100 mg/dl) A Urine Ketones 1+ A Urine Blood 3+ A Urine Nitrate Negative Urine Bilirubin Negative Urine Urobilinogen Negative Ur Leukocyte Esterase Negative Urine WBC (Auto) 1+(6-10/hpf) A Urine RBC (Auto) 2+(6-10/hpf) A Ur Squamous Epith Cells Present A Urine Bacteria 1+ A Hyaline Casts Present A Granular Casts Present A Urine Glucose Negative Urine Opiates Screen Ur Barbiturates Screen Ur Phencyclidine Scrn Ur Amphetamines Screen U Benzodiazepines Scrn Urine Cocaine Screen U Cannabinoids Screen Serum Alcohol Influenza A (Rapid) Influenza B (Rapid) Blood Type A Positive Antibody Screen Negative 04/09/18 04/10/18 04/10/18 23:21 00:10 00:13 WBC RBC Hgb Hct MCV MCH MCHC RDW Plt Count MPV Neut % (Auto) Lymph % (Auto) [place] % (Auto) Eos % (Auto) Baso % (Auto) Absolute Neuts (auto) Absolute Lymphs (auto) Absolute Monos (auto) Absolute Eos (auto) Absolute Basos (auto) Absolute Nucleated RBC Nucleated RBC % INR (Anticoag Therapy) APTT ABG pH 7.05 L* ABG pCO2 < 20 L ABG pO2 110 H ABG HCO3 6.0 L* ABG O2 Saturation 98.0 ABG Base Excess -24.2 L Sodium Potassium Chloride Carbon Dioxide Anion Gap BUN Creatinine Est GFR ( Amer) Est GFR (Non-Af Amer) BUN/Creatinine Ratio Glucose POC Glucose (mg/dL) Serum Osmolality Lactic Acid 6.0 H* Calcium Phosphorus Magnesium Total Bilirubin AST ALT Alkaline Phosphatase Ammonia Total Creatine Kinase Troponin I C-Reactive Protein Total Protein Albumin Globulin Albumin/Globulin Ratio Amylase Lipase Urine Color Urine Appearance Urine pH Ur Specific [place] Urine Protein Urine Ketones Urine Blood Urine Nitrate Urine Bilirubin Urine Urobilinogen Ur Leukocyte Esterase Urine WBC (Auto) Urine RBC (Auto) Ur Squamous Epith Cells Urine Bacteria Hyaline Casts Granular Casts Urine Glucose Urine Opiates Screen None detected Ur Barbiturates Screen None detected Ur Phencyclidine Scrn None detected Ur Amphetamines Screen None detected U Benzodiazepines Scrn None detected Urine Cocaine Screen None detected U Cannabinoids Screen None detected Serum Alcohol Influenza A (Rapid) Influenza B (Rapid) Blood Type Antibody Screen 04/10/18 04/10/18 04/10/18 03:21 03:21 05:10 WBC 4.1 RBC 3.53 L Hgb 11.6 L Hct 34 L MCV 96 MCH 33 H MCHC 34 RDW 16 H Plt Count 133 L MPV 7.2 L Neut % (Auto) 77.0 Lymph % (Auto) 14.0 L [place] % (Auto) 8.8 H Eos % (Auto) 0 Baso % (Auto) 0.2 Absolute Neuts (auto) 3.2 Absolute Lymphs (auto) 0.6 L Absolute Monos (auto) 0.4 Absolute Eos (auto) 0 Absolute Basos (auto) 0 Absolute Nucleated RBC 0 Nucleated RBC % 0.2 INR (Anticoag Therapy) APTT ABG pH ABG pCO2 ABG pO2 ABG HCO3 ABG O2 Saturation ABG Base Excess Sodium 136 Potassium 3.5 Chloride 101 Carbon Dioxide 7 L* Anion Gap 28 H BUN 14 Creatinine 1.11 H Est GFR ( Amer) 64.6 Est GFR (Non-Af Amer) 53.4 BUN/Creatinine Ratio 12.6 Glucose 133 H POC Glucose (mg/dL) Serum Osmolality 296 H Lactic Acid Calcium 6.5 L Phosphorus 2.0 L Magnesium 1.2 L Total Bilirubin 0.60 AST 55 H ALT 41 Alkaline Phosphatase 104 Ammonia Total Creatine Kinase Troponin I C-Reactive Protein Total Protein 5.7 L Albumin 3.2 Globulin 2.5 Albumin/Globulin Ratio 1.3 Amylase Lipase Urine Color Urine Appearance Urine pH Ur Specific [place] Urine Protein Urine Ketones Urine Blood Urine Nitrate Urine Bilirubin Urine Urobilinogen Ur Leukocyte Esterase Urine WBC (Auto) Urine RBC (Auto) Ur Squamous Epith Cells Urine Bacteria Hyaline Casts Granular Casts Urine Glucose Urine Opiates Screen Ur Barbiturates Screen Ur Phencyclidine Scrn Ur Amphetamines Screen U Benzodiazepines Scrn Urine Cocaine Screen U Cannabinoids Screen Serum Alcohol Influenza A (Rapid) Influenza B (Rapid) Blood Type Antibody Screen 04/10/18 04/10/18 04/10/18 05:25 08:00 08:00 WBC RBC Hgb Hct MCV MCH MCHC RDW Plt Count MPV Neut % (Auto) Lymph % (Auto) [place] % (Auto) Eos % (Auto) Baso % (Auto) Absolute Neuts (auto) Absolute Lymphs (auto) Absolute Monos (auto) Absolute Eos (auto) Absolute Basos (auto) Absolute Nucleated RBC Nucleated RBC % INR (Anticoag Therapy) 0.92 APTT ABG pH 7.31 L ABG pCO2 < 20 L ABG pO2 112 H ABG HCO3 12.6 L ABG O2 Saturation 98.0 ABG Base Excess -15.8 L Sodium Potassium Chloride Carbon Dioxide Anion Gap BUN Creatinine Est GFR ( Amer) Est GFR (Non-Af Amer) BUN/Creatinine Ratio Glucose POC Glucose (mg/dL) Serum Osmolality Lactic Acid Calcium Phosphorus Magnesium Total Bilirubin AST ALT Alkaline Phosphatase Ammonia 65 H Total Creatine Kinase Troponin I C-Reactive Protein Total Protein Albumin Globulin Albumin/Globulin Ratio Amylase Lipase Urine Color Urine Appearance Urine pH Ur Specific [place] Urine Protein Urine Ketones Urine Blood Urine Nitrate Urine Bilirubin Urine Urobilinogen Ur Leukocyte Esterase Urine WBC (Auto) Urine RBC (Auto) Ur Squamous Epith Cells Urine Bacteria Hyaline Casts Granular Casts Urine Glucose Urine Opiates Screen Ur Barbiturates Screen Ur Phencyclidine Scrn Ur Amphetamines Screen U Benzodiazepines Scrn Urine Cocaine Screen U Cannabinoids Screen Serum Alcohol Influenza A (Rapid) Influenza B (Rapid) Blood Type Antibody Screen 04/10/18 08:00 WBC RBC Hgb Hct MCV MCH MCHC RDW Plt Count MPV Neut % (Auto) Lymph % (Auto) [place] % (Auto) Eos % (Auto) Baso % (Auto) Absolute Neuts (auto) Absolute Lymphs (auto) Absolute Monos (auto) Absolute Eos (auto) Absolute Basos (auto) Absolute Nucleated RBC Nucleated RBC % INR (Anticoag Therapy) APTT ABG pH ABG pCO2 ABG pO2 ABG HCO3 ABG O2 Saturation ABG Base Excess Sodium Potassium Chloride Carbon Dioxide Anion Gap BUN Creatinine Est GFR ( Amer) Est GFR (Non-Af Amer) BUN/Creatinine Ratio Glucose POC Glucose (mg/dL) Serum Osmolality Lactic Acid 0.7 Calcium Phosphorus Magnesium Total Bilirubin AST ALT Alkaline Phosphatase Ammonia Total Creatine Kinase Troponin I C-Reactive Protein Total Protein Albumin Globulin Albumin/Globulin Ratio Amylase Lipase Urine Color Urine Appearance Urine pH Ur Specific [place] Urine Protein Urine Ketones Urine Blood Urine Nitrate Urine Bilirubin Urine Urobilinogen Ur Leukocyte Esterase Urine WBC (Auto) Urine RBC (Auto) Ur Squamous Epith Cells Urine Bacteria Hyaline Casts Granular Casts Urine Glucose Urine Opiates Screen Ur Barbiturates Screen Ur Phencyclidine Scrn Ur Amphetamines Screen U Benzodiazepines Scrn Urine Cocaine Screen U Cannabinoids Screen Serum Alcohol Influenza A (Rapid) Influenza B (Rapid) Blood Type Antibody Screen Studies: CXR 04/09 IMPRESSION: LINES AND TUBES ABOVE. NO ACTIVE CARDIOPULMONARY DISEASE. CT Abd/Pel 04/09 IMPRESSION: No acute CT pathology in the abdomen or pelvis. CT Chest 04/09 IMPRESSION: There is patchy opacity at the lung bases suspicious for pneumonitis and/or atelectasis. Impression: 42F with alcoholism presents with severe metabolic acidosis 2/2 alcoholic ketoacidosis/starvation ketosis Plan: Neuro - pain control - monitor for withdrawal - ativan prn CV - monitor bp Pulm - oxygenating ok ID - wbc count elevated but improved with hydration - given empiric vanc/zosyn in er - no clear source of infection - will dc abx for now - f/u cultures GI - transaminitis - 2/2 alcohol - npo for now - thiamine/folate/mvi - nutrition consult Renal - Alcoholic Keto Acidosis - iv hydration - serial bmp - replete electrolytes - stop bicarb gtt - start LR@ 150/hr - monitor i/o Heme - monitor cbc Endo - check fs, niss Lines - RIJ TLC PPx - gi/dvt Full Code Critical Care Time: 65 mins
[2018-04-10] MEDS ORDERED: Magnesium Sulfate IV* 3 GM in NS 0.9% 100 ML* 100 ML IVPB ONE (09:15)
[2018-04-10 09:36] LABS: EGFR Non-African American 69.8 (>60)
--- NOTE | 2018-04-10 09:42 | ADMNOTE ---
Subjective Date of Service: 04/10/18 Interval History: hpi 42 yr old wf with hx of chronic etoh dep still drinks about 750 cc vodka daily presented to er with c/o of increasing three days of weakness but still manges to drink ----> last drink was 04/09 night etoh level on admission was 130 ---> pt initial abg showed ph <7 and bicarb of 1.6 got ivf two liter bolus with two amp of bicarb ivp repeat abg showed slight improved of abg with ph barely 7.05 and bicarb of 6. despite of abnormal labs pt has stable vital. she was found to have uti and given levaquin ---> pt's sbp 134 but tachycardia which suggests to this technical writer and editor she might detoxing ---> pt was trying to ask for pain med but this technical writer and editor told her that this problem would be monitered as she goes along in icu once she stablizes ----> called icu director Dr Patel wanted serum osmo which was added to admission and ordered for 5 am ---> Dr Patel will take pt to his service in am Family History: Findings - etoh from mom Social History: Findings - chronic etoh dep will drink daily with vodka 750 cc since age 28 just went to detox and stayed there 40 days and just came out from there. cig 0.5 to 1 ppd no ivda Past Medical History: Findings - chronic etoh dep cig smoker ascites mood disorder with both depression/anxiety ptsd psoriasis hx of carpal tunnel surgery s/p neck and lower back surgery Review of Systems - Measurements Intake and Output: Intake and Output Last 24 Hours 04/08/18 04/09/18 04/10/18 04/11/18 06:59 06:59 06:59 06:59 Intake Total 5425 Output Total 2074 425 Balance 3350 -425 Weight 144 lb 13.499 oz Intake: IV Fluids 5150 IVPB 260 1/2 ns with sod bicarb 260 Medicated IV 15 zosyn 15 Output: Hugo 2074 Straight Cath 425 - Review of Systems General Comments: please refer to hpi for details 06/13 ros reviewed with her Objective Active Medications: Acetaminophen (Tylenol Tab*) 650 mg PO Q4H PRN PRN Reason: PAIN Folic Acid (Folvite Tab*) 1 mg PO DAILY JOJO Heparin Sodium (Porcine) (Heparin Vial(*)) 5,000 units SUBCUT Q12HR [facility] Lactated Ringer's (Lactated Ringers 1000 Ml Bag*) 1,000 mls @ 150 mls/hr IV PER RATE JOJO Stop: 04/11/18 09:06 Magnesium Sulfate 3 gm/ Sodium (Chloride) 106 mls @ 53 mls/hr IVPB ONCE ONE Stop: 04/10/18 11:14 Lorazepam (Ativan Inj*) 0 - 6 mg IM .PER [facility] PROTOCOL JOJO; Protocol Morphine Sulfate (Morphine Vial*) 2 mg IV Q4H PRN PRN Reason: PAIN - MILD Multivitamins/Minerals (Theragran/Minerals Tab*) 1 tab PO DAILY [facility] Ondansetron HCl (Zofran Inj*) 4 mg IV Q6H PRN PRN Reason: NAUSEA Thiamine HCl (Vitamin B-1 Tab*) 100 mg PO DAILY [facility] Vital Signs - 8 hr 04/10/18 04/10/18 04/10/18 01:50 02:00 02:20 Temperature Pulse Rate 119 122 124 Respiratory 26 23 26 Rate Blood Pressure 144/90 134/89 (mmHg) O2 Sat by Pulse 97 97 97 Oximetry 04/10/18 04/10/18 04/10/18 02:51 02:54 03:00 Temperature 100.9 F 100.0 F Pulse Rate 121 124 124 Respiratory 22 27 29 Rate Blood Pressure 145/90 145/90 134/86 (mmHg) O2 Sat by Pulse 98 100 94 Oximetry 04/10/18 04/10/18 04/10/18 03:13 03:16 03:30 Temperature 100.0 F Pulse Rate 122 121 122 Respiratory 27 19 25 Rate Blood Pressure 134/86 126/90 137/85 (mmHg) O2 Sat by Pulse 99 97 99 Oximetry 04/10/18 04/10/18 04/10/18 04:00 04:30 05:00 Temperature 100.0 F 100.0 F 100.0 F Pulse Rate 118 118 113 Respiratory 24 22 26 Rate Blood Pressure 144/89 146/87 145/99 (mmHg) O2 Sat by Pulse 100 99 99 Oximetry 04/10/18 04/10/18 04/10/18 05:30 05:47 06:00 Temperature 99.9 F 99.9 F Pulse Rate 115 115 Respiratory 23 23 25 Rate Blood Pressure 138/95 131/90 (mmHg) O2 Sat by Pulse 99 99 Oximetry 04/10/18 04/10/18 04/10/18 06:30 07:00 07:30 Temperature 99.9 F 99.7 F 99.7 F Pulse Rate 109 112 109 Respiratory 22 19 19 Rate Blood Pressure 141/92 134/85 137/87 (mmHg) O2 Sat by Pulse 99 99 99 Oximetry 04/10/18 04/10/18 04/10/18 08:00 08:30 09:00 Temperature 99.9 F 99.9 F 99.9 F Pulse Rate 118 112 116 Respiratory 24 23 23 Rate Blood Pressure 135/88 130/80 (mmHg) O2 Sat by Pulse 98 99 98 Oximetry Oxygen Devices in Use Now: None Eyes: PERRLA Ears/Nose/Mouth/Throat: Clear Oropharnyx, - - oral mucosa dry Neck: NL Appearance and Movements; NL JVP, Trachea Midline, No Thyroid Enlargement, Masses Respiratory: Symmetrical Chest Expansion and Respiratory Effort, Clear to Auscultation Cardiovascular: NL Sounds; No Murmurs; No JVD, RRR Abdominal: - - + bs soft + ascites Extremities: No Edema, - - able to raise ue and le against gravity Skin: No Rash or Ulcers Neurological: Alert and Oriented x 3, NL Sensation, NL Muscle Strength and Tone Result Diagrams: 04/10/18 05:10 04/10/18 09:10 Microbiology and Other Data: Microbiology 04/10/18 03:10 Nasal Screen MRSA (PCR) - Final Nasal Mrsa Not Detected 04/09/18 21:19 Influenza Types A,B Antigen - Final Nasal Specimen received for Influenza A/B Molecular testing Assess/Plan/Problems-Billing Assessment: 42 yr old wf with chronic etoh dep presented with severe metabolic acidosis pt will be taken over by critical care at 7 am case d/w critical care community relations coordinator too - Patient Problems (1) Alcohol use disorder Current Visit: No Status: Acute Code(s): F10.99 - ALCOHOL USE, UNSP WITH UNSPECIFIED ALCOHOL-INDUCED DISORDER SNOMED Code(s): 43700988 (2) Tobacco use disorder Current Visit: No Status: Acute Code(s): F17.200 - NICOTINE DEPENDENCE, UNSPECIFIED, UNCOMPLICATED SNOMED Code(s): 880118841 Comment: may order nicotine patch as needed (3) MDD (major depressive disorder), recurrent episode, severe Current Visit: No Status: Acute Code(s): F33.2 - MAJOR DEPRESSV DISORDER, RECURRENT SEVERE W/O PSYCH FEATURES SNOMED Code(s): 789786986575 Comment: moniter at this point (4) Metabolic acidosis Current Visit: Yes Status: Acute Code(s): E87.2 - ACIDOSIS SNOMED Code(s) : 71240034 Comment: mgt d/w critical care ok to use bicarb drip but need to watch her resp rate she is not in resp distress that is why this technical writer and editor placed bicarb drip while monitering repeat labs ordered including serum osmo she is aao times three despite of sig lab abnormality ---> other sources of cause also considered total critical care time 70 min (5) UTI (urinary tract infection) Current Visit: Yes Status: Acute Comment: levaquin ordered as per er rocephin might be a better choice
[2018-04-10] MEDS ORDERED: Potassium Phosphate IV* 15 MMOLE in NS 0.9% 250 ML* 250 ML IVPB ONE ×2 (09:56→16:00)
[2018-04-10] MEDS: Acetaminophen TAB* 325 MG PO PRN ×3 (10:36→22:16)
[2018-04-10] MEDS: KCL 20 MEQ/100 ML IVPREMIX* 20 MEQ/100 ML BAG IV SCH ×5 (11:08→22:31)
[2018-04-10 14:37] LABS: EGFR Non-African American 85.3 (>60)
[2018-04-10] MEDS: Heparin VIAL(*) 5000 UNITS/ML VIAL (FIVE THOUSAND) SUBCUT SCH (21:57)
[2018-04-11] MEDS: LORazepam INJ* 2 MG/ML 1 ML VIAL IM SCH ×2 (00:04→08:11)
[2018-04-11 04:55] LABS: ABS Neutrophils 2.6 10^3/ul (1.5-7.7); Hematocrit 31 % (35-47); Hemoglobin 10.1 g/dl (12.0-16.0); Mean Corpuscular HGB Conc 33 g/dl (31-36); Mean Corpuscular Hemoglobin 33 pg (27-31); Mean Corpuscular Volume 99 fL (80-97); Red Blood Count 3.09 10^6/ul (4.00-5.40); Red Cell Distribution Width 16 % (10.5-15); White Blood Count 4.7 10^3/ul (3.5-10.8)
[2018-04-11 05:04] LABS: EGFR Non-African American 120.1 (>60)
[2018-04-11 05:26] LABS: ABS Basophils 0 10^3/ul (0-0.2); ABS Eosinophils 0 10^3/ul (0-0.6); ABS Lymphocytes 1.8 10^3/ul (1.0-4.8); ABS Monocytes 0.2 10^3/ul (0-0.8); ABS Nucleated RBC 0 10^3/ul; Eosinophil % 0.4 % (0-6); Lymphocyte % 38.3 % (25-47); Nucleated Red Blood Cells % 0.2; Platelet Count Platelets clumped. 10^3/ul (150-450)
--- NOTE | 2018-04-11 08:07 | PN ---
Hospitalist Progress Note Date of Service: 04/11/18 pt was transferred from icu to hospitalist service last night blood cx 07/06 + gram + organism but did not look like staph aureas repeat blood cx ordered as per protocol bicarb is 14 repeat bmp at noon ordered to f/u the bicarb trend
[2018-04-11] MEDS: Acetaminophen TAB* 325 MG PO PRN (08:10)
[2018-04-11] MEDS: Multivitamins/Minerals TAB PO SCH (08:10)
[2018-04-11] MEDS: Folic Acid TAB* 1 MG PO SCH (08:10)
[2018-04-11] MEDS: Heparin VIAL(*) 5000 UNITS/ML VIAL (FIVE THOUSAND) SUBCUT SCH ×2 (08:12→20:10)
[2018-04-11] MEDS ORDERED: Potassium Phosphate IV* 15 MMOLE in NS 0.9% 250 ML* 250 ML IVPB ONE (08:24)
[2018-04-11] MEDS ORDERED: Thiamine IV* 100 MG/ML 2 ML VIAL IM ONE (08:30)
[2018-04-11] MEDS ORDERED: Acetaminophen TAB* 325 MG PO PRN (08:30)
[2018-04-11] MEDS ORDERED: Thiamine TAB* 100 MG TAB PO SCH (09:00)
[2018-04-11] MEDS ORDERED: Multivitamins/Minerals TAB PO SCH (09:00)
[2018-04-11] MEDS ORDERED: Folic Acid TAB* 1 MG PO SCH (09:00)
[2018-04-11] MEDS: KCL 20 MEQ/100 ML IVPREMIX* 20 MEQ/100 ML BAG IV SCH ×3 (09:35→14:14)
[2018-04-11] MEDS: Thiamine TAB* 100 MG TAB PO SCH (09:40)
[2018-04-11] MEDS: Potassium & Sodium Phos 250MG* = 1 PACKET PO SCH ×3 (09:40→20:10)
[2018-04-11 12:27] LABS: EGFR Non-African American 151.4 (>60)
[2018-04-11] MEDS ORDERED: Albuterol HFA INHALER* 8 gm MDI INH PRN (12:56)
[2018-04-11] MEDS ORDERED: Lidocaine PATCH 5%* 1 PATCH TRANSDERM PRN (12:56)
--- NOTE | 2018-04-11 13:23 | PN ---
Subjective Date of Service: 04/11/18 Interval History: Pt feels very weak. Ate lunch. Denies abd pain. Just got out of inpatient rehab 1 month ago Family History: Findings - etoh from mom Social History: Findings - chronic etoh dep will drink daily with vodka 750 cc since age 28 just went to detox and stayed there 40 days and just came out from there. cig 0.5 to 1 ppd no ivda Past Medical History: Findings - chronic etoh dep cig smoker ascites mood disorder with both depression/anxiety ptsd psoriasis hx of carpal tunnel surgery s/p neck and lower back surgery Objective Active Medications: Acetaminophen (Tylenol Tab*) 650 mg PO Q4H PRN PRN Reason: PAIN Last Admin: 04/11/18 08:10 Dose: 650 mg Albuterol (Ventolin Hfa Inhaler*) 2 puff INH Q4H PRN PRN Reason: WHEEZING Clonidine HCl (Catapres Tab*) 0.1 mg PO TID JOJO Duloxetine HCl (Cymbalta Cap*) 60 mg PO DAILY JOJO Folic Acid (Folvite Tab*) 1 mg PO DAILY [facility] Last Admin: 04/11/18 08:10 Dose: 1 mg Gabapentin (Neurontin Cap(*)) 800 mg PO TID [facility] Heparin Sodium (Porcine) (Heparin Vial(*)) 5,000 units SUBCUT Q12HR [facility] Last Admin: 04/11/18 08:12 Dose: 5,000 units Hydroxyzine HCl (Atarax Tab*) 50 mg PO BID [facility] Potassium Chloride (Potassium Chloride 20 Meq/100 Ml Ivpremix*) 20 meq in 100 mls @ 50 mls/hr IV Q2H JOJO Stop: 04/11/18 14:59 Last Admin: 04/11/18 11:42 Dose: 50 mls/hr Potassium Phosphate 15 mmole/ (Sodium Chloride) 255 mls @ 42 mls/hr IVPB ONCE ONE Stop: 04/11/18 14:28 Last Admin: 04/11/18 09:46 Dose: 42 mls/hr Lidocaine (Lidoderm 5% Patch*) 1 patch TRANSDERM DAILY PRN PRN Reason: PAIN Lorazepam (Ativan Tab(*)) 0 - 6 mg PO .PER [facility] PROTOCOL JOJO; Protocol Morphine Sulfate (Morphine Vial*) 2 mg IV Q4H PRN PRN Reason: PAIN - MILD Multivitamins/Minerals (Theragran/Minerals Tab*) 1 tab PO DAILY [facility] Last Admin: 04/11/18 08:10 Dose: 1 tab Nicotine (Nicotine Patch 21 Mg/24 Hr*) 1 patch TRANSDERM DAILY@0800 [facility] Ondansetron HCl (Zofran Inj*) 4 mg IV Q6H PRN PRN Reason: NAUSEA Potassium Phos/Sodium Phos (Neutra Phos 250 Mg Joel*) 250 mg PO TID [facility] Last Admin: 04/11/18 09:40 Dose: 250 mg Quetiapine Fumarate (Seroquel Xr Tab*) 300 mg PO BEDTIME [facility] Thiamine HCl (Vitamin B-1 Tab*) 100 mg PO DAILY [facility] Last Admin: 04/11/18 08:10 Dose: 100 mg Thiamine HCl (Vitamin B-1 Tab*) 100 mg PO DAILY [facility] Last Admin: 04/11/18 09:40 Dose: 100 mg Trazodone HCl (Desyrel Tab*) 100 mg PO BEDTIME [facility] Vital Signs - 8 hr 04/11/18 04/11/18 04/11/18 05:55 07:15 07:38 Temperature 98.5 F 98.7 F Pulse Rate 95 84 Respiratory 24 24 22 Rate Blood Pressure 127/75 124/67 (mmHg) O2 Sat by Pulse 99 100 Oximetry 04/11/18 04/11/18 04/11/18 08:11 09:39 11:41 Temperature 98.6 F Pulse Rate 88 Respiratory 22 15 22 Rate Blood Pressure 125/72 (mmHg) O2 Sat by Pulse 99 Oximetry Oxygen Devices in Use Now: None Appearance: 42 yo F in nAD, aAOx3 Eyes: No Scleral Icterus, PERRLA Ears/Nose/Mouth/Throat: NL Teeth, Lips, Gums, Mucous Membranes Moist Neck: NL Appearance and Movements; NL JVP, Trachea Midline Respiratory: Symmetrical Chest Expansion and Respiratory Effort, Clear to Auscultation Cardiovascular: NL Sounds; No Murmurs; No JVD, RRR Abdominal: NL Sounds; No Tenderness; No Distention, No Hepatosplenomegaly Lymphatic: No Cervical Adenopathy Extremities: No Edema, No Clubbing, Cyanosis Skin: No Rash or Ulcers, No Nodules or Sclerosis Neurological: Alert and Oriented x 3, - - mild tremor inn b/l UE's noted Result Diagrams: 04/11/18 04:44 04/11/18 11:47 Microbiology and Other Data: Microbiology 04/10/18 03:10 Nasal Screen MRSA (PCR) - Final Nasal Mrsa Not Detected 04/09/18 21:19 Influenza Types A,B Antigen - Final Nasal Specimen received for Influenza A/B Molecular testing Assess/Plan/Problems-Billing Assessment: 42 yr old wf with chronic etoh dep presented with severe metabolic acidosis - Patient Problems (1) Metabolic acidosis Comment: likely due to starvation ketosis, resolving. cont IVF (2) Alcohol use disorder Comment: ivf thiamine ativan prn (3) Hypophosphatemia Comment: replacing PO and IV (4) Hypokalemia Comment: replacing PO (5) DVT prophylaxis Comment: HSQ Status and Disposition: inpatient
[2018-04-11] MEDS: cloNIDine TAB* 0.1 MG PO SCH ×2 (13:37→20:09)
[2018-04-11] MEDS: Gabapentin CAP(*) 400 MG PO SCH ×2 (13:37→20:09)
[2018-04-11] MEDS: LORazepam TAB(*) 1 MG PO SCH (18:33)
[2018-04-11] MEDS: traZODone TAB* 100 MG PO SCH (20:09)
[2018-04-11] MEDS: QUEtiapine XR TAB* 300 MG PO SCH (20:09)
[2018-04-11] MEDS: hydrOXYzine HCL TAB* 25 MG PO SCH (20:09)
[2018-04-12] MEDS ORDERED: ZOSYN 3.375 GM x ONE DOSE over 30 miuntes IVPB ×2 (01:30)
[2018-04-12 05:41] LABS: EGFR Non-African American 115.2 (>60)
[2018-04-12] MEDS ORDERED: Potassium Chlor TAB* 20 MEQ TAB.ER PO ONE (08:22)
[2018-04-12] MEDS: Nicotine PATCH 21 MG/24 HR* PATCH TRANSDERM SCH (08:32)
[2018-04-12] MEDS: Heparin VIAL(*) 5000 UNITS/ML VIAL (FIVE THOUSAND) SUBCUT SCH ×2 (08:32→20:44)
[2018-04-12] MEDS: hydrOXYzine HCL TAB* 25 MG PO SCH ×2 (08:33→20:45)
[2018-04-12] MEDS: DULoxetine DR CAP* 60 MG CAP.DR PO SCH (08:33)
[2018-04-12] MEDS: Gabapentin CAP(*) 400 MG PO SCH ×3 (08:33→20:43)
[2018-04-12] MEDS: Folic Acid TAB* 1 MG PO SCH (08:34)
[2018-04-12] MEDS: Acetaminophen TAB* 325 MG PO PRN ×2 (08:34→15:25)
[2018-04-12] MEDS: Thiamine TAB* 100 MG TAB PO SCH (08:34)
[2018-04-12] MEDS: Potassium & Sodium Phos 250MG* = 1 PACKET PO SCH ×3 (08:34→20:45)
[2018-04-12] MEDS: Multivitamins/Minerals TAB PO SCH (08:34)
[2018-04-12] MEDS ORDERED: Potassium Phosphate IV* 10 MMOLE in NS 0.9% 250 ML* 250 ML IVPB ONE (09:30)
[2018-04-12] MEDS: Piperacillin/Tazobac ADVAN(*) 3.375 GM in NS 0.9% 100 ML* 100 ML IVPB SCH ×2 (09:34→16:36)
[2018-04-12] MEDS: oxyCODONE TAB* 5 MG TAB PO PRN ×2 (17:04→19:10)
--- NOTE | 2018-04-12 18:22 | PN ---
Subjective Date of Service: 04/12/18 Interval History: Pt feels very "weak". Has chronic LBP and had surgery for it. Appetite good. Loose stools noted, no abd pain Family History: Findings - etoh from mom Social History: Findings - ETOH abuse Past Medical History: Findings - chronic etoh dep cig smoker ascites mood disorder with both depression/anxiety ptsd psoriasis hx of carpal tunnel surgery s/p neck and lower back surgery Objective Active Medications: Acetaminophen (Tylenol Tab*) 650 mg PO Q4H PRN PRN Reason: PAIN Last Admin: 04/12/18 15:25 Dose: 650 mg Albuterol (Ventolin Hfa Inhaler*) 2 puff INH Q4H PRN PRN Reason: WHEEZING Duloxetine HCl (Cymbalta Cap*) 60 mg PO DAILY [facility] Last Admin: 04/12/18 08:33 Dose: 60 mg Folic Acid (Folvite Tab*) 1 mg PO DAILY [facility] Last Admin: 04/12/18 08:34 Dose: 1 mg Gabapentin (Neurontin Cap(*)) 800 mg PO TID [facility] Last Admin: 04/12/18 13:35 Dose: 800 mg Heparin Sodium (Porcine) (Heparin Vial(*)) 5,000 units SUBCUT Q12HR [facility] Last Admin: 04/12/18 08:32 Dose: 5,000 units Hydroxyzine HCl (Atarax Tab*) 50 mg PO BID [facility] Last Admin: 04/12/18 08:33 Dose: 50 mg Piperacillin Sod/Tazobactam (Sod 3.375 gm/ Sodium Chloride) 100 mls @ 25 mls/ hr IVPB Q8H [facility] Last Admin: 04/12/18 16:36 Dose: 25 mls/hr Lidocaine (Lidoderm 5% Patch*) 1 patch TRANSDERM DAILY PRN PRN Reason: PAIN Last Admin: 04/12/18 17:04 Dose: 1 patch Lorazepam (Ativan Tab(*)) 0 - 6 mg PO .PER [facility] PROTOCOL [facility]; Protocol Last Admin: 04/11/18 18:33 Dose: 1 mg Multivitamins/Minerals (Theragran/Minerals Tab*) 1 tab PO DAILY [facility] Last Admin: 04/12/18 08:34 Dose: 1 tab Nicotine (Nicotine Patch 21 Mg/24 Hr*) 1 patch TRANSDERM DAILY@0800 [facility] Last Admin: 04/12/18 08:32 Dose: 1 patch Ondansetron HCl (Zofran Inj*) 4 mg IV Q6H PRN PRN Reason: NAUSEA Oxycodone HCl (Roxycodone Tab*) 5 mg PO Q4H PRN PRN Reason: PAIN Last Admin: 04/12/18 17:04 Dose: 5 mg Pharmacy Profile Note (Lidocaine Patch Remove*) 1 note PATCH OFF 0500 ONE Stop: 04/13/18 05:01 Potassium Phos/Sodium Phos (Neutra Phos 250 Mg Joel*) 250 mg PO TID [facility] Last Admin: 04/12/18 13:35 Dose: 250 mg Quetiapine Fumarate (Seroquel Xr Tab*) 300 mg PO BEDTIME [facility] Last Admin: 04/11/18 20:09 Dose: 300 mg Thiamine HCl (Vitamin B-1 Tab*) 100 mg PO DAILY [facility] Last Admin: 04/12/18 08:34 Dose: 100 mg Trazodone HCl (Desyrel Tab*) 100 mg PO BEDTIME [facility] Last Admin: 04/11/18 20:09 Dose: 100 mg Vital Signs - 8 hr 04/12/18 04/12/18 04/12/18 10:35 11:20 13:35 Temperature 98.2 F Pulse Rate 105 Respiratory 15 18 15 Rate Blood Pressure 89/56 (mmHg) O2 Sat by Pulse 96 Oximetry 04/12/18 04/12/18 04/12/18 14:56 15:35 16:43 Temperature 98.9 F Pulse Rate 87 91 Respiratory 16 18 Rate Blood Pressure 106/72 109/74 (mmHg) O2 Sat by Pulse 96 98 Oximetry 04/12/18 17:04 Temperature Pulse Rate Respiratory 20 Rate Blood Pressure (mmHg) O2 Sat by Pulse Oximetry Oxygen Devices in Use Now: None Appearance: 42 yo F in nAD, AAOx3 Eyes: No Scleral Icterus, PERRLA Ears/Nose/Mouth/Throat: NL Teeth, Lips, Gums, Mucous Membranes Moist Neck: NL Appearance and Movements; NL JVP, Trachea Midline Respiratory: Symmetrical Chest Expansion and Respiratory Effort, Clear to Auscultation Cardiovascular: NL Sounds; No Murmurs; No JVD, RRR Abdominal: NL Sounds; No Tenderness; No Distention Lymphatic: No Cervical Adenopathy Extremities: No Edema, No Clubbing, Cyanosis Skin: No Rash or Ulcers, No Nodules or Sclerosis Neurological: Alert and Oriented x 3, - - b/l LE's at 4/5 -movement limited by pain in lower back which is chronic Result Diagrams: 04/11/18 04:44 04/12/18 04:50 Microbiology and Other Data: Microbiology 04/10/18 03:10 Nasal Screen MRSA (PCR) - Final Nasal Mrsa Not Detected 04/09/18 21:19 Influenza Types A,B Antigen - Final Nasal Specimen received for Influenza A/B Molecular testing Assess/Plan/Problems-Billing Assessment: 42 yr old wf with chronic etoh dep presented with severe metabolic acidosis - Patient Problems (1) Blood bacterial culture positive Comment: pt's blood cx from central line positive for Staph hominis and acinetobacter baumanii. Blood cx obtained peripherally at admission positive for coag neg staph (staph epi). Cubsided ID: likely contamination. will d/c central line, D/c Zosyn and monitor. Pt is nontoxic appearing and has no symptoms of infection (2) Metabolic acidosis Comment: likely due to starvation ketosis, resolved. (3) Alcohol use disorder Comment: thiamine ativan prn (4) Hypophosphatemia Comment: replacing PO and IV (5) Hypokalemia Comment: replacing PO (6) Generalized weakness Comment: due to deconditioning and electrolyte abn. cont PO/OT, PMRU consult placed (7) DVT prophylaxis Comment: HSQ Status and Disposition: inpatient
[2018-04-12] MEDS: traZODone TAB* 100 MG PO SCH (20:46)
[2018-04-12] MEDS: QUEtiapine XR TAB* 300 MG PO SCH (20:46)
[2018-04-13] MEDS: oxyCODONE TAB* 5 MG TAB PO PRN ×3 (01:14→19:54)
[2018-04-13] MEDS: Acetaminophen TAB* 325 MG PO PRN ×2 (04:02→22:31)
[2018-04-13] MEDS: LORazepam TAB(*) 1 MG PO SCH (04:04)
[2018-04-13] MEDS ORDERED: Lidocaine Patch REMOVE* 1 NOTE MISC PATCH OFF ONE (05:00)
[2018-04-13 07:28] LABS: EGFR Non-African American 110.7 (>60)
[2018-04-13] MEDS: Thiamine TAB* 100 MG TAB PO SCH (08:00)
[2018-04-13] MEDS: Nicotine PATCH 21 MG/24 HR* PATCH TRANSDERM SCH (08:00)
[2018-04-13] MEDS: Folic Acid TAB* 1 MG PO SCH (08:00)
[2018-04-13] MEDS: Heparin VIAL(*) 5000 UNITS/ML VIAL (FIVE THOUSAND) SUBCUT SCH ×2 (08:00→19:56)
[2018-04-13] MEDS: hydrOXYzine HCL TAB* 25 MG PO SCH ×2 (08:00→19:54)
[2018-04-13] MEDS: DULoxetine DR CAP* 60 MG CAP.DR PO SCH (08:00)
[2018-04-13] MEDS: Multivitamins/Minerals TAB PO SCH (08:00)
[2018-04-13] MEDS: Potassium & Sodium Phos 250MG* = 1 PACKET PO SCH ×3 (08:00→19:53)
[2018-04-13] MEDS: Gabapentin CAP(*) 400 MG PO SCH ×3 (08:01→19:54)
[2018-04-13] MEDS ORDERED: Potassium Chlor TAB* 20 MEQ TAB.ER PO ONE (08:18)
[2018-04-13] MEDS ORDERED: Magnesium Sulfate 2 GM IV* 2 GM/50 ML BAG IVPB ONE (08:18)
[2018-04-13 09:00] LABS: Hematocrit 28 % (35-47); Hemoglobin 9.6 g/dl (12.0-16.0); Mean Corpuscular HGB Conc 35 g/dl (31-36); Mean Corpuscular Hemoglobin 34 pg (27-31); Mean Corpuscular Volume 97 fL (80-97); Mean Platelet Volume 8.1 um3 (7.4-10.4); Platelet Count 99 10^3/ul (150-450); Red Blood Count 2.84 10^6/ul (4.00-5.40); Red Cell Distribution Width 16 % (10.5-15); White Blood Count 3.5 10^3/ul (3.5-10.8)
[2018-04-13] MEDS: traZODone TAB* 100 MG PO SCH (19:55)
[2018-04-13] MEDS: QUEtiapine XR TAB* 300 MG PO SCH (19:55)
--- NOTE | 2018-04-13 20:29 | PN ---
Subjective Date of Service: 04/13/18 Interval History: Afebrile since 04/10 Lethargic this AM after ativan at 4am for [facility]. No additional ativan needed since that time. Family History: Findings - etoh from mom Social History: Findings - ETOH abuse Past Medical History: Findings - chronic etoh dep cig smoker ascites mood disorder with both depression/anxiety ptsd psoriasis hx of carpal tunnel surgery s/p neck and lower back surgery Objective Active Medications: Acetaminophen (Tylenol Tab*) 650 mg PO Q4H PRN PRN Reason: PAIN Last Admin: 04/13/18 04:02 Dose: 650 mg Albuterol (Ventolin Hfa Inhaler*) 2 puff INH Q4H PRN PRN Reason: WHEEZING Duloxetine HCl (Cymbalta Cap*) 60 mg PO DAILY [facility] Last Admin: 04/13/18 08:00 Dose: 60 mg Folic Acid (Folvite Tab*) 1 mg PO DAILY [facility] Last Admin: 04/13/18 08:00 Dose: 1 mg Gabapentin (Neurontin Cap(*)) 800 mg PO TID [facility] Last Admin: 04/13/18 19:54 Dose: 800 mg Heparin Sodium (Porcine) (Heparin Vial(*)) 5,000 units SUBCUT Q12HR [facility] Last Admin: 04/13/18 19:56 Dose: 5,000 units Hydroxyzine HCl (Atarax Tab*) 50 mg PO BID [facility] Last Admin: 04/13/18 19:54 Dose: 50 mg Lidocaine (Lidoderm 5% Patch*) 1 patch TRANSDERM DAILY PRN PRN Reason: PAIN Last Admin: 04/12/18 17:04 Dose: 1 patch Lorazepam (Ativan Tab(*)) 0 - 6 mg PO .PER [facility] PROTOCOL [facility]; Protocol Last Admin: 04/13/18 04:04 Dose: 1 mg Multivitamins/Minerals (Theragran/Minerals Tab*) 1 tab PO DAILY [facility] Last Admin: 04/13/18 08:00 Dose: 1 tab Nicotine (Nicotine Patch 21 Mg/24 Hr*) 1 patch TRANSDERM DAILY@0800 [facility] Last Admin: 04/13/18 08:00 Dose: 1 patch Ondansetron HCl (Zofran Inj*) 4 mg IV Q6H PRN PRN Reason: NAUSEA Oxycodone HCl (Roxycodone Tab*) 5 mg PO Q4H PRN PRN Reason: PAIN Last Admin: 04/13/18 19:54 Dose: 5 mg Potassium Phos/Sodium Phos (Neutra Phos 250 Mg Joel*) 250 mg PO TID [facility] Last Admin: 04/13/18 19:53 Dose: 250 mg Quetiapine Fumarate (Seroquel Xr Tab*) 300 mg PO BEDTIME [facility] Last Admin: 04/13/18 19:55 Dose: 300 mg Thiamine HCl (Vitamin B-1 Tab*) 100 mg PO DAILY [facility] Last Admin: 04/13/18 08:00 Dose: 100 mg Trazodone HCl (Desyrel Tab*) 100 mg PO BEDTIME [facility] Last Admin: 04/13/18 19:55 Dose: 100 mg Vital Signs - 8 hr 04/13/18 04/13/18 04/13/18 13:24 13:42 15:18 Temperature 97.5 F Pulse Rate 116 99 Respiratory 16 16 Rate Blood Pressure 97/58 104/65 (mmHg) O2 Sat by Pulse 97 98 Oximetry 04/13/18 04/13/18 04/13/18 15:50 16:15 17:17 Temperature 98.2 F Pulse Rate 102 Respiratory 18 18 16 Rate Blood Pressure 111/65 (mmHg) O2 Sat by Pulse 97 Oximetry 04/13/18 04/13/18 18:22 19:54 Temperature Pulse Rate Respiratory 18 20 Rate Blood Pressure (mmHg) O2 Sat by Pulse Oximetry Oxygen Devices in Use Now: None Appearance: NAD Eyes: No Scleral Icterus, PERRLA Ears/Nose/Mouth/Throat: NL Teeth, Lips, Gums, Clear Oropharnyx, Mucous Membranes Moist Neck: NL Appearance and Movements; NL JVP, Trachea Midline Respiratory: Symmetrical Chest Expansion and Respiratory Effort, Clear to Auscultation Cardiovascular: NL Sounds; No Murmurs; No JVD, RRR Abdominal: NL Sounds; No Tenderness; No Distention, No Hepatosplenomegaly Lymphatic: No Cervical Adenopathy Extremities: No Edema Skin: - - right neck c/d/i at site of previous TLC Neurological: Alert and Oriented x 3 Result Diagrams: 04/13/18 06:47 04/13/18 06:47 Microbiology and Other Data: Microbiology 04/10/18 03:10 Nasal Screen MRSA (PCR) - Final Nasal Mrsa Not Detected 04/09/18 21:19 Influenza Types A,B Antigen - Final Nasal Specimen received for Influenza A/B Molecular testing Assess/Plan/Problems-Billing Assessment: 42 yr old wf with chronic etoh dep presented with severe metabolic acidosis - Patient Problems (1) Blood bacterial culture positive Current Visit: Yes Status: Acute Code(s): R78.81 - BACTEREMIA SNOMED Code( s): 284872136 Comment: pt's blood cx from central line positive for Staph hominis and acinetobacter baumanii. Blood cx obtained peripherally at admission positive for coag neg staph (staph epi). Per Dr. Hutton discussion with ID: likely contamination. abx'ed stopped and and monitor. No additional fevers, improving overall (2) Generalized weakness Current Visit: Yes Status: Acute Code(s): R53.1 - WEAKNESS SNOMED Code(s) : 95665893 Comment: due to deconditioning and electrolyte abn. cont PO/OT, PMRU declined (3) Hypokalemia Current Visit: Yes Status: Acute Code(s): E87.6 - HYPOKALEMIA SNOMED Code( s): 48085412 Comment: replacing PO (4) Hypophosphatemia Current Visit: Yes Status: Acute Code(s): E83.39 - OTHER DISORDERS OF PHOSPHORUS METABOLISM SNOMED Code(s): 0636843 Comment: improved neutraphos trend (5) Metabolic acidosis Current Visit: Yes Status: Acute Code(s): E87.2 - ACIDOSIS SNOMED Code(s) : 18339456 Comment: likely due to starvation ketosis, resolved. (6) DVT prophylaxis Current Visit: Yes Status: Acute Code(s): OKY8021 - SNOMED Code(s): 000894828 Comment: HSQ Status and Disposition: inpatient
[2018-04-14] MEDS: oxyCODONE TAB* 5 MG TAB PO PRN ×4 (00:40→20:53)
[2018-04-14 05:57] LABS: Hematocrit 26 % (35-47); Hemoglobin 8.9 g/dl (12.0-16.0); Mean Corpuscular HGB Conc 35 g/dl (31-36); Mean Corpuscular Hemoglobin 33 pg (27-31); Mean Corpuscular Volume 97 fL (80-97); Platelet Count 115 10^3/ul (150-450); Red Blood Count 2.66 10^6/ul (4.00-5.40); Red Cell Distribution Width 16 % (10.5-15); White Blood Count 2.5 10^3/ul (3.5-10.8)
[2018-04-14 06:13] LABS: ABS Basophils 0 10^3/ul (0-0.2); ABS Eosinophils 0 10^3/ul (0-0.6); ABS Lymphocytes 1.6 10^3/ul (1.0-4.8); ABS Monocytes 0.2 10^3/ul (0-0.8); ABS Neutrophils 0.7 10^3/ul (1.5-7.7); ABS Nucleated RBC 0 10^3/ul
[2018-04-14 06:14] LABS: EGFR Non-African American 115.2 (>60)
[2018-04-14 06:30] LABS: Eosinophil % 1.9 % (0-6); Nucleated Red Blood Cells % 0.2
[2018-04-14] MEDS: Heparin VIAL(*) 5000 UNITS/ML VIAL (FIVE THOUSAND) SUBCUT SCH ×2 (07:56→20:53)
[2018-04-14] MEDS: Nicotine PATCH 21 MG/24 HR* PATCH TRANSDERM SCH (07:58)
[2018-04-14] MEDS: Potassium & Sodium Phos 250MG* = 1 PACKET PO SCH ×2 (08:00→13:17)
[2018-04-14] MEDS: Gabapentin CAP(*) 400 MG PO SCH ×3 (08:02→20:52)
[2018-04-14] MEDS: hydrOXYzine HCL TAB* 25 MG PO SCH (08:02)
[2018-04-14] MEDS: LORazepam TAB(*) 1 MG PO SCH ×2 (08:02→13:17)
[2018-04-14] MEDS: Multivitamins/Minerals TAB PO SCH (08:03)
[2018-04-14] MEDS: Thiamine TAB* 100 MG TAB PO SCH (08:03)
[2018-04-14] MEDS: DULoxetine DR CAP* 60 MG CAP.DR PO SCH (08:03)
[2018-04-14] MEDS: Folic Acid TAB* 1 MG PO SCH (08:03)
[2018-04-14] MEDS ORDERED: LORazepam TAB(*) 1 MG PO SCH (16:17)
--- NOTE | 2018-04-14 16:31 | PN ---
Subjective Date of Service: 04/14/18 Interval History: Feels better compared to yesterday but appears fatigued (also after receipt of ativan) Has no other complaints Family History: Findings - etoh from mom Social History: Findings - ETOH abuse Past Medical History: Findings - chronic etoh dep cig smoker ascites mood disorder with both depression/anxiety ptsd psoriasis hx of carpal tunnel surgery s/p neck and lower back surgery Objective Active Medications: Acetaminophen (Tylenol Tab*) 650 mg PO Q4H PRN PRN Reason: PAIN Last Admin: 04/13/18 22:31 Dose: 650 mg Albuterol (Ventolin Hfa Inhaler*) 2 puff INH Q4H PRN PRN Reason: WHEEZING Duloxetine HCl (Cymbalta Cap*) 60 mg PO DAILY [facility] Last Admin: 04/14/18 08:03 Dose: 60 mg Folic Acid (Folvite Tab*) 1 mg PO DAILY [facility] Last Admin: 04/14/18 08:03 Dose: 1 mg Gabapentin (Neurontin Cap(*)) 800 mg PO TID [facility] Last Admin: 04/14/18 13:17 Dose: 800 mg Heparin Sodium (Porcine) (Heparin Vial(*)) 5,000 units SUBCUT Q12HR [facility] Last Admin: 04/14/18 07:56 Dose: 5,000 units Lidocaine (Lidoderm 5% Patch*) 1 patch TRANSDERM DAILY PRN PRN Reason: PAIN Last Admin: 04/12/18 17:04 Dose: 1 patch Lorazepam (Ativan Tab(*)) 0 - 6 mg PO .PER [facility] PROTOCOL [facility]; Protocol Multivitamins/Minerals (Theragran/Minerals Tab*) 1 tab PO DAILY [facility] Last Admin: 04/14/18 08:03 Dose: 1 tab Nicotine (Nicotine Patch 21 Mg/24 Hr*) 1 patch TRANSDERM DAILY@0800 [facility] Last Admin: 04/14/18 07:58 Dose: 1 patch Ondansetron HCl (Zofran Inj*) 4 mg IV Q6H PRN PRN Reason: NAUSEA Oxycodone HCl (Roxycodone Tab*) 5 mg PO Q4H PRN PRN Reason: PAIN Last Admin: 04/14/18 13:16 Dose: 5 mg Quetiapine Fumarate (Seroquel Xr Tab*) 300 mg PO BEDTIME [facility] Last Admin: 10/12/18 19:55 Dose: 300 mg Thiamine HCl (Vitamin B-1 Tab*) 100 mg PO DAILY [facility] Last Admin: 04/14/18 08:03 Dose: 100 mg Trazodone HCl (Desyrel Tab*) 100 mg PO BEDTIME [facility] Last Admin: 04/13/18 19:55 Dose: 100 mg Vital Signs - 8 hr 04/14/18 04/14/18 04/14/18 09:01 10:38 10:59 Temperature 98.4 F 98.4 F Pulse Rate 105 109 Respiratory 18 22 18 Rate Blood Pressure 102/65 107/55 (mmHg) O2 Sat by Pulse 98 97 Oximetry 04/14/18 04/14/18 04/14/18 13:06 13:16 13:17 Temperature 97.8 F Pulse Rate 100 Respiratory 16 20 18 Rate Blood Pressure 117/69 (mmHg) O2 Sat by Pulse 95 Oximetry 04/14/18 04/14/18 04/14/18 15:34 15:41 15:42 Temperature 98.2 F Pulse Rate 106 Respiratory 14 18 18 Rate Blood Pressure 109/65 (mmHg) O2 Sat by Pulse 95 Oximetry Oxygen Devices in Use Now: None Appearance: lying flat, falls asleep during conversation briefly Ears/Nose/Mouth/Throat: NL Teeth, Lips, Gums, Clear Oropharnyx Neck: NL Appearance and Movements; NL JVP, Trachea Midline Respiratory: Symmetrical Chest Expansion and Respiratory Effort, Clear to Auscultation Cardiovascular: RRR Abdominal: NL Sounds; No Tenderness; No Distention, No Hepatosplenomegaly Lymphatic: No Cervical Adenopathy Extremities: No Edema Skin: No Rash or Ulcers Neurological: Alert and Oriented x 3 Result Diagrams: 04/14/18 05:36 04/14/18 05:36 Microbiology and Other Data: Microbiology 04/10/18 03:10 Nasal Screen MRSA (PCR) - Final Nasal Mrsa Not Detected 04/09/18 21:19 Influenza Types A,B Antigen - Final Nasal Specimen received for Influenza A/B Molecular testing Assess/Plan/Problems-Billing Assessment: 42 yr old wf with chronic etoh dep presented with severe metabolic acidosis - Patient Problems (1) Alcohol abuse Comment: minimal need for ativan decrease ativan dosing but maintain WAM (2) Blood bacterial culture positive Current Visit: Yes Status: Acute Code(s): R78.81 - BACTEREMIA SNOMED Code( s): 673744940 Comment: pt's blood cx from central line positive for Staph hominis and acinetobacter baumanii. Blood cx obtained peripherally at admission positive for coag neg staph (staph epi). Repeat peripheral bcx NGTD Per Dr. Hutton discussion with ID: likely contamination. abx'ed stopped and and monitor. No additional fevers, improving overall but has developed pancytopenia (3) Generalized weakness Comment: due to deconditioning and electrolyte abn. cont PO/OT, PMRU declined (4) Hypokalemia Comment: replacing PO PRN (5) Hypophosphatemia Comment: improved neutraphos stopped 04/14 (6) Metabolic acidosis Comment: likely due to starvation ketosis, resolved. (7) Pancytopenia Comment: Associated with neutropenia chronic alcoholism, dietary deficiencies seem likely but has developed progressively during this hospital stay Check retic count, B12, LDH, repeat CBC stop atarax heme consult if does not resolve (8) DVT prophylaxis Comment: HSQ Status and Disposition: inpatient
[2018-04-14] MEDS: traZODone TAB* 100 MG PO SCH (20:53)
[2018-04-14] MEDS: QUEtiapine XR TAB* 300 MG PO SCH (20:53)
[2018-04-15] MEDS: Acetaminophen TAB* 325 MG PO PRN ×4 (03:11→19:45)
[2018-04-15] MEDS: oxyCODONE TAB* 5 MG TAB PO PRN ×3 (03:12→20:46)
[2018-04-15 05:28] LABS: Corrected Retic Count 1.4 % (0.5-1.5); Hematocrit for Retic CNT 25 % (35-47); Immature Retic Fraction 0.74; RBC Retic Count 2.57 10^6/ul (4.6-6.2)
[2018-04-15] MEDS: DULoxetine DR CAP* 60 MG CAP.DR PO SCH (07:19)
[2018-04-15] MEDS: Multivitamins/Minerals TAB PO SCH (07:19)
[2018-04-15] MEDS: Thiamine TAB* 100 MG TAB PO SCH (07:19)
[2018-04-15] MEDS: Nicotine PATCH 21 MG/24 HR* PATCH TRANSDERM SCH (07:20)
[2018-04-15] MEDS: Folic Acid TAB* 1 MG PO SCH (07:20)
[2018-04-15] MEDS: Gabapentin CAP(*) 400 MG PO SCH ×3 (08:36→20:46)
[2018-04-15] MEDS: Heparin VIAL(*) 5000 UNITS/ML VIAL (FIVE THOUSAND) SUBCUT SCH ×2 (08:37→20:47)
[2018-04-15 08:42] LABS: Hematocrit 25 % (35-47); Hemoglobin 8.6 g/dl (12.0-16.0); Mean Corpuscular HGB Conc 34 g/dl (31-36); Mean Corpuscular Hemoglobin 33 pg (27-31); Mean Corpuscular Volume 98 fL (80-97); Mean Platelet Volume 8.9 um3 (7.4-10.4); Platelet Count 181 10^3/ul (150-450); Red Blood Count 2.57 10^6/ul (4.00-5.40); Red Cell Distribution Width 17 % (10.5-15)
[2018-04-15 09:07] LABS: ABS Basophils 0 10^3/ul (0-0.2); ABS Eosinophils 0 10^3/ul (0-0.6); ABS Lymphocytes 1.7 10^3/ul (1.0-4.8); ABS Monocytes 0.5 10^3/ul (0-0.8); ABS Neutrophils 0.7 10^3/ul (1.5-7.7)
[2018-04-15 09:14] LABS: ABS Basophils 0 10^3/ul (0-0.2); Monocytes % 17 % (0-7)
[2018-04-15 10:15] LABS: ABS Neutrophils 0.8 10^3/ul (1.5-7.7)
[2018-04-15] MEDS ORDERED: NS 0.9% 1000 ML* 1,000 ML IV SCH (11:00)
--- NOTE | 2018-04-15 15:27 | PN ---
Subjective Date of Service: 04/15/18 Interval History: Feels "full" with abdominal distention No BM in days Hungry but doesn't as though she can eat Less lethargic today No anxiety Family History: Findings - etoh from mom Social History: Findings - ETOH abuse Past Medical History: Findings - chronic etoh dep cig smoker ascites mood disorder with both depression/anxiety ptsd psoriasis hx of carpal tunnel surgery s/p neck and lower back surgery Objective Active Medications: Acetaminophen (Tylenol Tab*) 650 mg PO Q4H PRN PRN Reason: PAIN Last Admin: 04/15/18 13:16 Dose: 650 mg Albuterol (Ventolin Hfa Inhaler*) 2 puff INH Q4H PRN PRN Reason: WHEEZING Duloxetine HCl (Cymbalta Cap*) 60 mg PO DAILY [facility] Last Admin: 04/15/18 07:19 Dose: 60 mg Folic Acid (Folvite Tab*) 1 mg PO DAILY [facility] Last Admin: 04/15/18 07:20 Dose: 1 mg Gabapentin (Neurontin Cap(*)) 800 mg PO TID [facility] Last Admin: 04/15/18 13:16 Dose: 800 mg Heparin Sodium (Porcine) (Heparin Vial(*)) 5,000 units SUBCUT Q12HR [facility] Last Admin: 04/15/18 08:37 Dose: 5,000 units Sodium Chloride (Ns 0.9% 1000 Ml*) 1,000 mls @ 150 mls/hr IV PER RATE [facility] Stop: 04/15/18 17:39 Last Admin: 04/15/18 11:11 Dose: 150 mls/hr Lidocaine (Lidoderm 5% Patch*) 1 patch TRANSDERM DAILY PRN PRN Reason: PAIN Last Admin: 04/12/18 17:04 Dose: 1 patch Multivitamins/Minerals (Theragran/Minerals Tab*) 1 tab PO DAILY [facility] Last Admin: 04/15/18 07:19 Dose: 1 tab Nicotine (Nicotine Patch 21 Mg/24 Hr*) 1 patch TRANSDERM DAILY@0800 [facility] Last Admin: 04/15/18 07:20 Dose: 1 patch Ondansetron HCl (Zofran Inj*) 4 mg IV Q6H PRN PRN Reason: NAUSEA Oxycodone HCl (Roxycodone Tab*) 5 mg PO Q4H PRN PRN Reason: PAIN Last Admin: 04/15/18 03:12 Dose: 5 mg Quetiapine Fumarate (Seroquel Xr Tab*) 300 mg PO BEDTIME [facility] Last Admin: 04/14/18 20:53 Dose: 300 mg Thiamine HCl (Vitamin B-1 Tab*) 100 mg PO DAILY [facility] Last Admin: 04/15/18 07:19 Dose: 100 mg Trazodone HCl (Desyrel Tab*) 100 mg PO BEDTIME [facility] Last Admin: 04/14/18 20:53 Dose: 100 mg Vital Signs - 8 hr 04/15/18 04/15/18 04/15/18 08:36 09:35 11:11 Temperature 98.0 F Pulse Rate 98 Respiratory 18 14 15 Rate Blood Pressure 107/66 (mmHg) O2 Sat by Pulse 99 Oximetry 04/15/18 04/15/18 11:14 13:16 Temperature 98.1 F Pulse Rate 93 Respiratory 14 20 Rate Blood Pressure 109/68 (mmHg) O2 Sat by Pulse 95 Oximetry Oxygen Devices in Use Now: None Appearance: unkempt, older than stated age, NAD Eyes: No Scleral Icterus, PERRLA Ears/Nose/Mouth/Throat: NL Teeth, Lips, Gums, Clear Oropharnyx Neck: NL Appearance and Movements; NL JVP, Trachea Midline Respiratory: Symmetrical Chest Expansion and Respiratory Effort, Clear to Auscultation Cardiovascular: RRR Abdominal: NL Sounds; No Tenderness; No Distention, No Hepatosplenomegaly Lymphatic: No Cervical Adenopathy Extremities: No Edema Skin: No Rash or Ulcers, - - right neck CVC site c/d/i Neurological: Alert and Oriented x 3 Result Diagrams: 04/15/18 05:00 04/15/18 05:03 Microbiology and Other Data: Microbiology 04/10/18 03:10 Nasal Screen MRSA (PCR) - Final Nasal Mrsa Not Detected 04/09/18 21:19 Influenza Types A,B Antigen - Final Nasal Specimen received for Influenza A/B Molecular testing Assess/Plan/Problems-Billing Assessment: 42 yr old wf with chronic etoh dep presented with severe metabolic acidosis - Patient Problems (1) Alcohol abuse Comment: minimal need for ativan WAM discontinued 04/15 (2) Blood bacterial culture positive Current Visit: Yes Status: Acute Code(s): R78.81 - BACTEREMIA SNOMED Code( s): 806420886 Comment: pt's blood cx from central line positive for Staph hominis and acinetobacter baumanii. Blood cx obtained peripherally at admission positive for coag neg staph (staph epi). Repeat peripheral bcx NGTD Per Dr. Hutton discussion with ID: likely contamination. abx'ed stopped and and monitor. No additional fevers, improving overall but has developed pancytopenia If neutropenia does not resolve, fevers develop, or tachycardia does not resolve can consider Abx (3) Generalized weakness Comment: due to deconditioning and electrolyte abn. cont PO/OT, PMRU declined Possibly [place] (4) Hypokalemia Comment: replacing PO PRN (5) Hypophosphatemia Comment: improved neutraphos stopped 04/14 (6) Metabolic acidosis Comment: likely due to starvation ketosis, resolved. (7) Pancytopenia Comment: Associated with neutropenia chronic alcoholism, dietary deficiencies seem likely but has developed progressively during this hospital stay Checked retic count, B12, LDH, Add on methylmalonic acid for 04/16 repeat CBC stop atarax heme consult if does not resolve (8) DVT prophylaxis Comment: HSQ Status and Disposition: inpatient
[2018-04-15] MEDS: Docusate CAP* 100 MG PO SCH (16:32)
[2018-04-15] MEDS: Polyethylene Glycol 3350* 17 GM PACKET PO SCH (16:32)
--- NOTE | 2018-04-15 16:52 | RAD ---
Indication: Abdominal distention. Flat and upright views of the abdomen demonstrates stool throughout the colon. No dilated loops of bowel are noted. Fecal stasis is noted. Psoas margins and organ silhouettes are unremarkable. IMPRESSION: Fecal stasis. No evidence of bowel obstruction is noted.
[2018-04-15] MEDS: traZODone TAB* 100 MG PO SCH (20:47)
[2018-04-15] MEDS: QUEtiapine XR TAB* 300 MG PO SCH (20:47)
[2018-04-15] MEDS ORDERED: Senna TAB PO SCH (21:00)
[2018-04-16] MEDS: oxyCODONE TAB* 5 MG TAB PO PRN ×3 (00:38→10:52)
[2018-04-16] MEDS: Acetaminophen TAB* 325 MG PO PRN ×3 (00:39→10:51)
[2018-04-16 06:21] LABS: Hematocrit 26 % (35-47); Mean Corpuscular HGB Conc 34 g/dl (31-36); Mean Corpuscular Hemoglobin 34 pg (27-31); Mean Corpuscular Volume 99 fL (80-97); Mean Platelet Volume 7.9 um3 (7.4-10.4); Platelet Count 283 10^3/ul (150-450); Red Blood Count 2.68 10^6/ul (4.00-5.40); Red Cell Distribution Width 17 % (10.5-15); White Blood Count 3.7 10^3/ul (3.5-10.8)
[2018-04-16 08:23] LABS: ABS Basophils 0 10^3/ul (0-0.2); ABS Eosinophils 0.1 10^3/ul (0-0.6); ABS Lymphocytes 1.6 10^3/ul (1.0-4.8); ABS Monocytes 0.7 10^3/ul (0-0.8); ABS Neutrophils 1.3 10^3/ul (1.5-7.7); ABS Nucleated RBC 0 10^3/ul; Eosinophil % 1.9 % (0-6); Lymphocyte % 43.6 % (25-47); Nucleated Red Blood Cells % 0.2
[2018-04-16] MEDS ORDERED: Magnesium Oxide TAB* 400 MG PO SCH (09:00)
[2018-04-16] MEDS ORDERED: Cyanocobalamin TAB* 500 MCG PO SCH (09:00)
[2018-04-16] MEDS: Polyethylene Glycol 3350* 17 GM PACKET PO SCH (09:04)
[2018-04-16] MEDS: Thiamine TAB* 100 MG TAB PO SCH (09:05)
[2018-04-16] MEDS: Folic Acid TAB* 1 MG PO SCH (09:05)
[2018-04-16] MEDS: DULoxetine DR CAP* 60 MG CAP.DR PO SCH (09:05)
[2018-04-16] MEDS: Gabapentin CAP(*) 400 MG PO SCH ×2 (09:05→13:03)
[2018-04-16] MEDS: Multivitamins/Minerals TAB PO SCH (09:05)
[2018-04-16] MEDS: Docusate CAP* 100 MG PO SCH (09:05)
[2018-04-16] MEDS: Heparin VIAL(*) 5000 UNITS/ML VIAL (FIVE THOUSAND) SUBCUT SCH (09:06)
[2018-04-16] MEDS: Nicotine PATCH 21 MG/24 HR* PATCH TRANSDERM SCH (09:06)
[2018-04-16 10:02] VITALS: BP 96/54
--- NOTE | 2018-04-16 13:28 | DS ---
CC: [facility]. * DISCHARGE SUMMARY: DATE OF ADMISSION: 04/10/18 DATE OF DISCHARGE: 04/16/18 The patient is being transferred to [facility] for rehab. PRIMARY CARE PROVIDER: None. DISCHARGE DIAGNOSES: 1. Dehydration and starvation ketosis. 2. History of alcohol abuse. 3. Multiple metabolic derangement including hypomagnesemia, hypokalemia, and hypophosphatemia. 4. Pancytopenia this is resolving likely due to refeeding. 5. Positive blood cultures, likely due to contamination. SECONDARY DIAGNOSES: 1. Alcohol abuse. 2. Depression. 3. History of carpal tunnel surgery. 4. Lower back surgery in the past with chronic back pain. 5. Posttraumatic stress disorder. 6. Psoriasis. MEDICATIONS AT DISCHARGE: 1. Lidoderm patch 5% applied to lower back, daily. 2. Mag-Ox 800 mg daily. 3. Acetaminophen on a p.r.n. basis. 4. Albuterol inhaler on a p.r.n. basis. 5. Vitamin B12 of 1000 mcg daily. 6. Colace 200 mg daily. 7. Duloxetine 60 mg daily. 8. Folic acid 1 mg daily. 9. Gabapentin 800 mg 3 times a day. 10. Multivitamin 1 tablet daily. 11. Nicotine patch 21 mg per 24 hours apply daily. 12. MiraLAX 17 g daily. 13. Seroquel XR 300 mg at bedtime. 14. Senokot 2 tablets at bedtime. 15. Thiamine 100 mg daily. 16. Trazodone 100 mg at bedtime. LABORATORY DATA AND STUDIES PERFORMED DURING THE HOSPITAL STAY: Include: Abdominal x-ray obtained on 04/14/18. Impression: "Fecal stasis. No evidence of bowel obstruction is noted." CT of the chest, abdomen, and pelvis obtained on 04/09/18. Impression: "There is a patchy opacity at the lung basis suspicious for pneumonitis and/or atelectasis". HOSPITALIZATION COURSE: Mrs. Gaytan is a 42-year-old female with a history of alcoholism who was just discharged from Inpatient Rehab Facility at [facility] a month prior to her current presentation to the ED with complaints of nausea, vomiting, and chills for 3 days and generalized weakness. When the patient came into the hospital, she was noted to have a carbon dioxide level of below 7. Her ABG showed pH of below 7 and PCO2 below 20 and bicarb of 1.6. The patient was noted to have severe metabolic acidosis, likely due to starvation ketosis. Her alcohol level on admission was 133. Patient was admitted to the intensive care unit and treated with several doses of bicarbonate as well as IV fluids. The patient had also hypopotassemia, hypomagnesemia, and hypokalemia that was replaced throughout her hospital stay. She had a triple lumen placed in her right jugular vein that was discontinued few days prior to her discharge. She did well during the hospital stay. She was placed on Ativan withdrawal protocol, required several days of the treatment without any major delirium noted apart from some of the alcohol withdrawal tremors. Nevertheless, she was markedly deconditioned and required rehabilitation at discharge. She was evaluated by physical therapy and deemed to be a good candidate for inpatient rehab placement. A couple of days prior to discharge, she was noted to have severe constipation and she had a bowel movement a day prior to discharge, although the abdominal x-rays still showed fecal stasis. She is going to be placed on multiple laxatives to go to rehab with. She was noted to have blood cultures positive at admission that showed Staphylococcus epidermidis that was deemed to be likely contamination. On the day when the blood cultures were reported to be negative on 04/11/18, the patient had another set of blood cultures obtained from the triple lumen catheter that was positive for Acinetobacter baumannii, Staphylococcus hominis, and Staphylococcus epidermidis. On the basis of the poly-bacterial blood cultures, the case was discussed with infectious disease specialist, who thought it was likely related to contamination. The patient was taken off antibiotics approximately 4 days prior to discharge and did well, was nontoxic appearing, and afebrile throughout the remaining of her hospital stay without any indication of ongoing infection. She did become briefly pancytopenic during the hospital stay likely related to refeeding that was resolving by the time of discharge. She was noted to have anemia during her hospital stay, which was likely chronic anemia that was not noted at admission due to her severe dehydration. Partially, her anemia was due to hemodilution, partially likely due to malnutrition and alcoholism. Her vitamin B12 level were on the lower side of the norm and she was placed on vitamin B12 supplements by the time of discharge. She is recommended to have a repeat CBC in approximately a week after discharge. LABORATORY DATA: Performed during the hospital stay: On 04/16/18: White blood cell count of 3.7, hemoglobin 10.0, hematocrit of 27, MCV of 99, and platelets of 283. Sodium of 139, potassium of 4.0, chloride 100, carbon dioxide 29, BUN 15, and creatinine of 0.68. Calcium of 8.8, magnesium of 1.9, phosphorus was 4.8 on 04/14/18. PHYSICAL EXAMINATION: At the time of discharge blood pressure of 96/54, heart rate of 102 and regular, respiratory rate 18, oxygen saturation 95% on room air , and temperature of 97.7. General Appearance: This is a very pleasant 42-year-old female who is in no acute distress. Alert, awake, and oriented x3. HEENT: Head atraumatic and normocephalic. Eyes: Pupils are equal, round, and reactive to light and accommodation. Oropharynx clear. Mucosa moist. Neck: Supple. No JVD. No bruits bilaterally. Cardiovascular: Regular, rate, and rhythm. No murmur. Respiratory: Crackles at the left lower base, otherwise clear. Abdomen: Slightly distended, soft, and nontender. Bowel sounds are present in all 4 quadrants. Extremities: There is +1 pitting pedal edema bilaterally. Pulses +2 bilaterally. There is no clubbing or cyanosis. Neuro Evaluation: Speech clear. Cranial nerves II through XII grossly intact. Motor strength is 5/5 bilaterally. No tremors noted. On evaluation of the skin, no ecchymotic areas or rashes noted. The puncture site on the right side of the neck from the IJ catheter placement is covered with eschar with no evidence of cellulitis. Psychiatric Evaluation: Oriented x3 with no evidence of anxiety or depression. The patient is being transferred to [facility] for continuation of rehab. Please note that this is a short summary of the patient's hospital stay. Please refer to further medical records for details. TIME SPENT: Approximately 45 minutes was spent on the patient's discharge. [id number]/CPS #: [id number] MTDD
== END 2018-04-16 13:30 | DRG 423 ==
LOC: ED 20:39 → ICU 04-10 02:35 → MEDTELE 04-10 23:15
PROVIDERS: ADMIT Internal Medicine; ATTEND Internal Medicine
PROC: 05HM33Z Insertion of Infusion Device into Right Internal Jugular Vein, Percutaneous Approach (ICD-10-PCS; principal; 2018-04-09)
PROC: B543ZZA Ultrasonography of Right Jugular Veins, Guidance (ICD-10-PCS; 2018-04-09)
DX: E88.89 Other specified metabolic disorders (principal); D61.818 Other pancytopenia; F33.2 Major depressive disorder, recurrent severe without psychotic features; N39.0 Urinary tract infection, site not specified; F10.239 Alcohol dependence with withdrawal, unspecified; E83.39 Other disorders of phosphorus metabolism; E83.42 Hypomagnesemia; T73.0XXA Starvation, initial encounter; X58.XXXA Exposure to other specified factors, initial encounter; E86.0 Dehydration; Y90.6 Blood alcohol level of 120-199 mg/100 ml; E87.6 Hypokalemia; F43.10 Post-traumatic stress disorder, unspecified; L40.9 Psoriasis, unspecified; K59.00 Constipation, unspecified; D53.9 Nutritional anemia, unspecified; F17.210 Nicotine dependence, cigarettes, uncomplicated; F41.9 Anxiety disorder, unspecified; Z81.1 Family history of alcohol abuse and dependence; Z79.1 Long term (current) use of non-steroidal anti-inflammatories (NSAID); Z79.899 Other long term (current) drug therapy
CPT/HCPCS: 36415; 36600; 71045; 71250; 74019; 74176; 80048; 80053; 80076; 80307; 80320; 81003; 81015; 82140; 82150; 82550; 82607; 82803; 83605; 83615; 83690; 83735; 83921; 83930; 84100; 84484; 85025; 85027; 85045; 85060; 85610; 85730; 86140; 86850; 86900; 86901; 87040; 87077; 87086; 87150; 87186; 87205; 87641; 93005; 99285; 99406; A9270-GY; G0480; J1644; J2060; J2270; J2405; J2543; J2765; J3370; J3411; J3475; J3480

== ENCOUNTER → 2018-07-30 10:27 | Emergency (ER) | payer MEDICAID ==
[~2018-07-30 10:27] MED LIST: Thiamine IV 100 MG, Folic Acid IV* 1 MG, Multiple Vitamin IV ADULT* 10 ML in NS 0.9% 10... IV ONE
--- NOTE | 2018-07-30 10:55 | ED ---
Substance Abuse/Use - HPI Summary HPI Summary: A 43 y/o female brought in by ambulance presents to the ED c/o alcoholism. In the ED room, the patient has a pulse of 100 BPM and O2 saturation of 96%. As per EMS, the patient is a chronic alcoholic. This episode started Monday night as she has been drinking 1 - 1.5 L of Vodka per day. Patient has also not been taking her medications. Patient has a PMHx of alcoholism, depression, bipolar, and anxiety. Patient is suppose to see Dr. Handley at 11 AM for a "nerve thing" as she has suppose to have neck and back surgery soon. Patient noted that she has up and down mood swings, has not taken her medications, eaten any real food. Family called EMS due to her constant drinking. Patient had vodka at 0930 this morning. Patient denies any SOB and CP. Patient is allergic to Lyrica. - History Of Current Complaint Chief Complaint: EDSubstanceAbuse Stated Complaint: ETOH/MHE Time Seen by Provider: 07/30/18 10:35 Hx Obtained From: Patient Onset/Duration of Drug/ETOH Abuse: Years - chronic Ingestion History: Type/Name Of Drug - etoh, vodka Overdose Characteristics: Oral Timing Of Abuse: Daily Severity Currently: None Aggravating Factor(s): Nothing Alleviating Factor(s): Nothing Associated Signs And Symptoms: Negative - Allergies/Home Medications Allergies/Adverse Reactions: Allergies Allergy/AdvReac Type Severity Reaction Status Date / Time Adhesive Tape [Paper Tape] Allergy Itching Verified 07/30/18 10:43 pregabalin [From Lyrica] Allergy Unknown Verified 07/30/18 10:43 Reaction Details Home Medications: Home Medications DULoxetine DR CAP* [Cymbalta CAP*] 30 mg PO DAILY 07/30/18 [History Confirmed ] DULoxetine DR CAP* [Cymbalta CAP*] 60 mg PO DAILY 07/30/18 [History Confirmed ] clonazePAM TAB(*) [KlonoPIN TAB(*)] 0.5 mg PO DAILY PRN 07/30/18 [History Confirmed 07/30/18] traZODone TAB* [Desyrel TAB*] 100 mg PO BEDTIME 07/30/18 [History Confirmed ] PMH/Surg Hx/FS Hx/Imm Hx Endocrine/Hematology History: Denies: Hx Diabetes Cardiovascular History: Reports: Hx Hypertension Denies: Hx Pacemaker/ICD Respiratory History: Reports: Hx Asthma GI History: Reports: Other GI Disorders - hx of fatty liver disease Musculoskeletal History: Reports: Hx Back Problems, Other Musculoskeletal History - hx of degenerative disc disease Sensory History: Reports: Hx Contacts or Glasses - pt states "supposed to wear glasses but don't use them" Denies: Hx Hearing Aid Opthamlomology History: Reports: Hx Contacts or Glasses - pt states "supposed to wear glasses but don't use them" Neurological History: Reports: Hx Seizures - d/t etoh withdrawal 7 years ago Psychiatric History: Reports: Hx Anxiety, Hx Depression, Hx Panic Disorder - ANXIETY, Hx Inpatient Treatment - following partner's suicide in April,, Hx Substance Abuse Denies: Hx Eating Disorder, Hx of Violent Episodes Against Others - Surgical History Surgery Procedure, Year, and Place: 07/03 &05/03 [facility] SURGERY X2. - Immunization History Date of Tetanus Vaccine: utd Date of Influenza Vaccine: none Infectious Disease History: Yes Infectious Disease History: Denies: Hx of Known/Suspected MRSA, Traveled Outside the [place] in Last 30 Days - Family History Known Family History: Positive: Other Negative: Diabetes Family History: alcoholism, SI - Social History Alcohol Use: Daily Alcohol Amount: 1/5 a week Hx Substance Use: No Substance Use Type: Reports: Marijuana Substance Use Comment - Amount & Last Used: occasionally Hx Tobacco Use: Yes Smoking Status (MU): Heavy Every Day Tobacco Smoker Type: Cigarettes Amount Used/How Often: states she smokes 1 PPD Have You Smoked in the Last Year: Yes Review of Systems Positive: Other - POSITIVE: ALCOHOLISM.. Negative: Fever Negative: Chest Pain Negative: Shortness Of Breath All Other Systems Reviewed And Are Negative: Yes Physical Exam - Summary Physical Exam Summary: VITAL SIGNS: Reviewed. GENERAL: Patient is an intoxicated female who is lying comfortable in the stretcher. Patient is not in any acute respiratory distress. HEAD AND FACE: No signs of trauma. No ecchymosis, hematomas or skull depressions. No sinus tenderness. EYES: PERRLA, EOMI x 2, No injected conjunctiva, no nystagmus. EARS: Hearing grossly intact. Ear canals and tympanic membranes are within normal limits. MOUTH: Oropharynx within normal limits. Patient has alcohol in breath. NECK: Supple, trachea is midline, no adenopathy, no JVD, no carotid bruit, no c- spine tenderness, neck with full ROM. CHEST: Symmetric, no tenderness at palpation LUNGS: Clear to auscultation bilaterally. No wheezing or crackles. CVS: Regular rate and rhythm, S1 and S2 present, no murmurs or gallops appreciated. ABDOMEN: Soft, non-tender. No signs of distention. No rebound no guarding, and no masses palpated. Bowel sounds are normal. EXTREMITIES: FROM in all major joints, no edema, no cyanosis or clubbing. NEURO: Alert and oriented x 3. No acute neurological deficits. Speech is normal and follows commands. SKIN: Dry and warm Triage Information Reviewed: Yes Vital Signs On Initial Exam: Initial Vitals Temp Pulse Resp BP Pulse Ox 98.0 F 100 18 127/84 98 07/30/18 10:35 07/30/18 10:35 07/30/18 10:35 07/30/18 10:35 07/30/18 10:35 Vital Signs Reviewed: Yes Diagnostics - Vital Signs Vital Signs Temp Pulse Resp BP Pulse Ox 07/30/18 10:35 98.0 F 100 18 127/84 98 - Laboratory Result Diagrams: 07/30/18 10:53 07/30/18 10:53 Lab Statement: Any lab studies that have been ordered have been reviewed, and results considered in the medical decision making process. Course/Dx - Course Assessment/Plan: A 43 y/o female brought in by ambulance presents to the ED c/o alcoholism. In the ED room, the patient has a pulse of 100 BPM and O2 saturation of 96%. As per EMS, the patient is a chronic alcoholic. This episode started Monday night as she has been drinking 1 - 1.5 L of Vodka per day. Patient has also not been taking her medications. Patient has a PMHx of alcoholism, depression, bipolar, and anxiety. Patient is suppose to see Dr. Handley at 11 AM for a "nerve thing" as she has suppose to have neck and back surgery soon. Patient noted that she has up and down mood swings, has not taken her medications, eaten any real food. Family called EMS due to her constant drinking. Patient had vodka at 0930 this morning. Patient denies any SOB and CP. Patient is allergic to Lyrica. Test results without any significant abnormality except for carbon dioxide of 18, anion gap of 19, AST is 56. Urinalysis is negative for UTI. Serum alcohol is 353. Therefore the patient is with alcohol intoxication. In the ED course the patient was given IV fluids and she was given the banana bag. 7 hours later the patient more alert however the patient still intoxicated. The patients boyfriend came to take the patient home. Since the patients boyfriend is alert and oriented 3 and is not under the influence he will be taking care of the patient. Therefore the patient will be discharged home with follow-up with PCP. I discussed all the findings and test results with the patient. Patient was instructed to return to the emergency room immediately if any of the symptoms return or worsens. Plan of care was discussed with the patient and understands and agrees. All questions were answered at patient satisfaction. There were no further complaints or concerns. Lung exam before discharge: CTA B/L. Good air exchange. No wheezing or crackles heard. CVS: S1 and S2 present. No murmurs appreciated. Patient is alert and oriented x 3. Patient is hemodynamically stable. Patient will be discharged home with follow up PCP in the next 2-3 days - Diagnoses Provider Diagnoses: Alcohol intoxication Discharge - Sign-Out/Discharge Documenting (check all that apply): Patient Departure - DISCHARGE - Discharge Plan Condition: Stable Disposition: HOME Patient Education Materials: Alcohol Intoxication (ED), Abuse of Alcohol (ED) Referrals: [facility] [Outside] - 3 Days [facility] [Outside] - 3 Days Additional Instructions: FOLLOW UP WITH PRIMARY CARE PROVIDER IN 3 DAYS. RETURN TO ED FOR ANY NEW OR WORSENING SYMPTOMS. - Billing Disposition and Condition Condition: STABLE Disposition: Home - Attestation Statements Document Initiated by Murali: Yes Documenting Scribe: Ezequiel Alejandro Provider For Whom Murali is Documenting (Include Credential): Daljit Watson MD Scribe Attestation: Ezequiel Hamilton scribed for Daljit Watson MD on 07/30/18 at 1844. Scribe Documentation Reviewed: Yes Provider Attestation: The documentation as recorded by the Ezequiel delgado accurately reflects the service I personally performed and the decisions made by , Daljit Watson MD Status of Scribe Document: Viewed Attestations Scribe Attestation: Ezequiel Alejandro User Type: Provider
[2018-07-30 12:07] LABS: ABS Basophils 0.1 10^3/ul (0-0.2); ABS Eosinophils 0 10^3/ul (0-0.6); ABS Lymphocytes 2.7 10^3/ul (1.0-4.8); ABS Monocytes 0.3 10^3/ul (0-0.8); ABS Neutrophils 2.6 10^3/ul (1.5-7.7); ABS Nucleated RBC 0 10^3/ul; Eosinophil % 0.6 %; Hematocrit 41 % (35-47); Hemoglobin 13.5 g/dl (12.0-16.0); Lymphocyte % 46.5 %; Mean Corpuscular HGB Conc 33 g/dl (31-36); Mean Corpuscular Hemoglobin 29 pg (27-31); Mean Corpuscular Volume 90 fL (80-97); Mean Platelet Volume 7.7 fL (7.4-10.4); Nucleated Red Blood Cells % 0.3; Platelet Count 312 10^3/ul (150-450); Red Blood Count 4.59 10^6/ul (4.00-5.40); Red Cell Distribution Width 21 % (10.5-15); White Blood Count 5.7 10^3/ul (3.5-10.8)
[2018-07-30 12:23] LABS: ALT 45 U/L (7-52); AST 56 U/L (13-39); Albumin 4.1 g/dL (3.2-5.2); Albumin/Globulin Ratio 1.2 (1-3); Alkaline Phosphatase 84 U/L (34-104); Anion Gap 19 mmol/L (2-11); BUN/Creatinine Ratio 24.4 (8-20); Blood Urea Nitrogen 11 mg/dL (6-24); CO2 Carbon Dioxide 18 mmol/L (22-32); Calcium 8.6 mg/dL (8.6-10.3); Chloride 103 mmol/L (101-111); EGFR African American 182.3 (>60); EGFR Non-African American 150.7 (>60); Globulin 3.4 g/dL (2-4); Glucose 76 mg/dL (70-100); Potassium 3.7 mmol/L (3.5-5.0); Sodium 140 mmol/L (135-145); Total Protein 7.5 g/dL (6.4-8.9)
[2018-07-30 12:35] LABS: Acetaminophen < 15 mcg/mL; Alcohol 353 mg/dL (<10); Salicylate < 2.50 mg/dL (<30)
[2018-07-30 12:43] LABS: Urine Appearance Cloudy; Urine Bacteria Absent (Absent); Urine Bilirubin Negative (Negative); Urine Blood 3+ (Negative); Urine Color Yellow; Urine Glucose Negative (Negative); Urine Ketones 1+ (Negative); Urine Nitrite Negative (Negative); Urine Protein 1+(30 mg/dL) (Negative); Urine Red Blood Cell 3+(>10/hpf) (Absent); Urine Squamous Epithelial Cell Present (Absent); Urine Urobilinogen Negative (Negative); Urine White Blood Cell Absent (Absent)
[2018-07-30 12:50] LABS: TSH (Thyroid Stimulating Horm) 0.96 mcIU/mL (0.34-5.60)
[2018-07-30 13:04] LABS: Barbiturates Urine Screen None Detected (None Detect); Benzodiazepine Urine Screen None Detected (None Detect); Urine Cannabinoids Screen None Detected (None Detect)
[2018-07-30 17:42] VITALS: BP 163/87
== END | disposition home or self-care (01) ==
LOC: ED 10:27
DX: F10.229 Alcohol dependence with intoxication, unspecified (principal); Z88.8 Allergy status to other drugs, medicaments and biological substances; Z91.048 Other nonmedicinal substance allergy status; F17.210 Nicotine dependence, cigarettes, uncomplicated
CPT/HCPCS: 36415; 80053; 80307; 80320; 80329; 81003; 81015; 84443; 85025; 96365; 96366; 99283; G0480; J3411

== ENCOUNTER 2018-10-09 19:32 | Inpatient (IN) | payer MEDICAID ==
--- NOTE | 2018-10-09 19:41 | ED ---
Psychiatric Complaint - HPI Summary HPI Summary: A 43 y/o F brought in by ambulance presents to ED for MHE. Patient goes to [facility]. She is not medication compliant with her Cymbalta , Seroquel, Hydroxyzine nor Klonopin. At bedside, she says I need to go to mental health. Shes been there before "a long time ago." She says "I'm scared. " She admits to drinking today. Pt becomes easily tearful at bedside. Denies previous SI attempt. - History Of Current Complaint Time Seen by Provider: 10/09/18 19:39 Hx Obtained From: Patient Onset/Duration: Still Present Timing: Constant Severity Initially: Moderate Severity Currently: Moderate Character: Fearful Aggravating Factor(s): Medication Non-compliance Related History: Positive For: Prior Psychiatric Issues Has Suicidal: Denies: Has Prior Attempt(s) - Allergies/Home Medications Allergies/Adverse Reactions: Allergies Allergy/AdvReac Type Severity Reaction Status Date / Time Adhesive Tape [Paper Tape] Allergy Itching Verified 07/30/18 10:43 pregabalin [From Lyrica] Allergy Unknown Verified 07/30/18 10:43 Reaction Details PMH/Surg Hx/FS Hx/Imm Hx Previously Healthy: No Endocrine/Hematology History: Denies: Hx Diabetes Cardiovascular History: Reports: Hx Hypertension Denies: Hx Pacemaker/ICD Respiratory History: Reports: Hx Asthma GI History: Reports: Other GI Disorders - hx of fatty liver disease Musculoskeletal History: Reports: Hx Back Problems, Other Musculoskeletal History - hx of degenerative disc disease Sensory History: Reports: Hx Contacts or Glasses - pt states "supposed to wear glasses but don't use them" Denies: Hx Hearing Aid Opthamlomology History: Reports: Hx Contacts or Glasses - pt states "supposed to wear glasses but don't use them" Neurological History: Reports: Hx Seizures - d/t etoh withdrawal 7 years ago Psychiatric History: Reports: Hx Anxiety, Hx Depression, Hx Panic Disorder - ANXIETY, Hx Inpatient Treatment - following partner's suicide in April,, Hx Substance Abuse Denies: Hx Eating Disorder, Hx of Violent Episodes Against Others - Surgical History Surgery Procedure, Year, and Place: 07/03 &05/03 [facility] SURGERY X2. - Immunization History Date of Tetanus Vaccine: utd Date of Influenza Vaccine: none Infectious Disease History: Denies: Hx of Known/Suspected MRSA - Family History Known Family History: Positive: Other Negative: Diabetes Family History: alcoholism, SI - Social History Occupation: Unemployed Lives: With Family Alcohol Use: Daily Alcohol Amount: 1/5 a week Hx Substance Use: No Substance Use Type: Reports: Marijuana Substance Use Comment - Amount & Last Used: occasionally Hx Tobacco Use: Yes Smoking Status (MU): Heavy Every Day Tobacco Smoker Type: Cigarettes Amount Used/How Often: states she smokes 1 PPD Have You Smoked in the Last Year: Yes Review of Systems Positive: Other - pos: intoxicated. Negative: Fever Psychological: Other - pos: scared All Other Systems Reviewed And Are Negative: Yes Physical Exam - Summary Physical Exam Summary: Appearance: The patient is well-nourished in no acute distress and in no acute pain. Patient's breath smells of ETOH, patient slurs her speech. Skin: The skin is warm and dry and skin color reflects adequate perfusion. HEENT: The head is normocephalic and atraumatic. The pupils are equal and reactive. The conjunctivae are clear and without drainage. Nares are patent and without drainage. Mouth reveals moist mucous membranes and the throat is without erythema and exudate. The external ears are intact. The ear canals are patent and without drainage. The tympanic membranes are intact. Neck: the neck is supple with full range of motion and non-tender. There are no carotid bruits. There is no neck vein distension. Respiratory: Chest is non-tender. Lungs are clear to auscultation and breath sounds are symmetrical and equal. Cardiovascular: Heart is regular rate and rhythm. There is no murmur or rub auscultated. There is no peripheral edema and pulses are symmetrical and equal. Abdomen: The abdomen is soft and non-tender. There are normal bowel sounds heard in all four quadrants and there is no organomegaly palpated. Musculoskeletal: There is no back tenderness noted. Extremities are non-tender with full range of motion. There is good capillary refill. There is no peripheral edema or calf tenderness elicited. Neurological: Patient is alert and oriented to person, place and time. The patient has symmetrical motor strength in all four extremities. Cranial nerves are grossly intact. Deep tendon reflexes are symmetrical and equal in all four extremities. Psychiatric: The patient is emotionally labile. Triage Information Reviewed: Yes Vital Signs Reviewed: Yes Diagnostics - Laboratory Result Diagrams: 10/09/18 20:21 10/09/18 20:21 Lab Statement: Any lab studies that have been ordered have been reviewed, and results considered in the medical decision making process. Course/Dx - Course Course Of Treatment: Ms. Gaytan presented tearful and asking to be admitted to the mental health unit. She was found to be quite intoxicated and at this point is sleeping and stable. She will be reevaluated in the morning. - Differential Dx/Clinical Impression Provider Diagnosis: Alcohol intoxication Discharge - Sign-Out/Discharge Documenting (check all that apply): Sign-Out Patient Signing out patient TO: Rosa Norwood - pending sobriety/MHE Patient Received Moderate/Deep Sedation with Procedure: No - Discharge Plan Referrals: No Primary Care Phys,NOPCP [Primary Care Provider] - - Attestation Statements Document Initiated by Claraibernestine: Yes Documenting Scribe: Tariq Clarke Provider For Whom Scribe is Documenting (Include Credential): Dr. Cleveland Burnett MD Scribe Attestation: Joy, sue Webstered for Dr. Cleveland Burnett MD on 10/09/18 at 2151. Scribe Documentation Reviewed: Yes Provider Attestation: The documentation as recorded by the Tariq delgado accurately reflects the service I personally performed and the decisions made by me, Dr. Cleveland Burnett MD Status of Scribe Document: Viewed
[2018-10-09 20:37] LABS: Hematocrit 38 % (33-41); Hemoglobin 12.6 g/dL (12.0-16.0); Mean Corpuscular HGB Conc 33 g/dL (31-36); Mean Corpuscular Hemoglobin 30 pg (27-31); Mean Corpuscular Volume 90 fL (80-97); Platelet Count 264 10^3/uL (150-450); Red Blood Count 4.25 10^6 /uL (3.70-4.87); Red Cell Distribution Width 17 % (10.5-15)
[2018-10-09 20:56] LABS: ALT 17 U/L (7-52); AST 22 U/L (13-39); Albumin 4.1 g/dL (3.2-5.2); Albumin/Globulin Ratio 1.2 (1-3); Alkaline Phosphatase 85 U/L (34-104); Anion Gap 13 mmol/L (2-11); BUN/Creatinine Ratio 24.4 (8-20); Blood Urea Nitrogen 10 mg/dL (6-24); CO2 Carbon Dioxide 25 mmol/L (22-32); Calcium 9.2 mg/dL (8.6-10.3); Chloride 105 mmol/L (101-111); EGFR Non-African American 167.8 (>60); Globulin 3.4 g/dL (2-4); Glucose 90 mg/dL (70-100); Potassium 3.6 mmol/L (3.5-5.0); Sodium 143 mmol/L (135-145); Total Protein 7.5 g/dL (6.4-8.9)
[2018-10-09 21:02] LABS: HCG Pregnancy 1.25 mIU/mL
[2018-10-09 21:14] LABS: ABS Basophils 0.1 10^3/ul (0-0.2); ABS Eosinophils 0 10^3/ul (0-0.6); ABS Lymphocytes 3.2 10^3/ul (1.0-4.8); ABS Monocytes 0.3 10^3/ul (0-0.8); ABS Neutrophils 1.4 10^3/ul (1.5-7.7); ABS Nucleated RBC 0 10^3/ul; Eosinophil % 0.6 %; Lymphocyte % 63.7 %; Nucleated Red Blood Cells % 0
[2018-10-09 21:16] LABS: Acetaminophen < 15 mcg/mL; Alcohol 358 mg/dL (<10); Salicylate < 2.50 mg/dL (<30)
[2018-10-09 21:25] LABS: TSH (Thyroid Stimulating Horm) 1.13 mcIU/mL (0.34-5.60)
[2018-10-09] MEDS ORDERED: Mouth Piece, Nicotine* 1 EACH CARTRIDGE INH PRN (21:44)
[2018-10-09] MEDS ORDERED: LORazepam TAB(*) 1 MG PO ONE (22:31)
[2018-10-09] MEDS ORDERED: Acetaminophen TAB* 325 MG PO ONE (23:32)
--- NOTE | 2018-10-10 05:39 | ED ---
Progress - Progress Note Progress Note: This patient was signed out from Dr. Burnett to Dr. Norwood upon shift change, pending sobriety and MHE. The patient is cleared for MHE at 0630. This patient will be signed out to Dr. Nolasco upon shift change, pending MHE. Course/Dx - Course Course Of Treatment: This patient was signed out from Dr. Burnett to Dr. Norwood upon shift change, pending sobriety and MHE. The patient is cleared for MHE at 0630. This patient will be signed out to Dr. Nolasco upon shift change, pending MHE. - Diagnoses Provider Diagnoses: Alcohol intoxication Discharge - Sign-Out/Discharge Documenting (check all that apply): Sign-Out Patient - pending MHE Signing out patient TO: Cleveland Gaurav Patient Received Moderate/Deep Sedation with Procedure: No - Discharge Plan Condition: Stable Referrals: No Primary Care Phys,NOPCP [Primary Care Provider] - - Attestation Statements Document Initiated by Scribe: Yes Documenting Scribe: Alexandro Miranda Provider For Whom Scribe is Documenting (Include Credential): Rosa Norwood MD Scribe Attestation: IAlexandro, scribed for Rosa Norwood MD on 10/10/18 at 0539. Status of Scribe Document: Ready
--- NOTE | 2018-10-10 07:03 | ED ---
Progress - Progress Note Progress Note: This patient was signed out from Dr. Norwood to Dr. Nolasco upon shift change, pending sobriety and MHE. Re-Evaluation - Re-Evaluation 1st re-eval Re-Evaluation Time: 09:07 Change: Unchanged Comment: Per Dr. Rowley, the pt will be admitted to [facility] with dx of alcohol intoxication and substance induced mood disorder. Course/Dx - Course Course Of Treatment: This patient was signed out from Dr. Norwood to Dr. Nolasco upon shift change, pending sobriety and MHE. As of 906, per Dr. Rowley, the pt will be admitted to [facility] with dx of alcohol intoxication and substance induced mood disorder. The pt is agreeable with this plan. - Diagnoses Provider Diagnoses: Alcohol intoxication, Substance induced mood disorder Discharge - Sign-Out/Discharge Documenting (check all that apply): Patient Departure, Receiving Sign-Out Receiving patient FROM: Rosa Norwood Patient Received Moderate/Deep Sedation with Procedure: No - Discharge Plan Condition: Stable Disposition: PSYCHIATRIC FACILITY-[facility] - Billing Disposition and Condition Condition: STABLE Disposition: Psychiatric Facility [facility] - Attestation Statements Document Initiated by Scribe: Yes Documenting Scribe: Bernie Lombardi Provider For Whom Claraibe is Documenting (Include Credential): Cleveland Nolasco MD. Scribe Attestation: Bernie Hamilton scribed for Cleveland Nolasco MD. on 10/10/18 at 1744. Scribe Documentation Reviewed: Yes Provider Attestation: The documentation as recorded by the scribe, Bernie Lombardi accurately reflects the service I personally performed and the decisions made by , Cleveland Nolasco MD. Status of Scribe Document: Viewed
[2018-10-10] MEDS ORDERED: hydrOXYzine HCL TAB* 25 MG PO ONE (07:19)
[2018-10-10] MEDS ORDERED: Al Hydrox/Mg Hydrox/Simet LIQ* 30 ML UDC PO PRN (09:53)
[2018-10-10] MEDS ORDERED: Albuterol HFA INHALER* 8 gm MDI INH PRN (09:55)
[2018-10-10 10:20] LABS: Urine Appearance Cloudy; Urine Bilirubin Negative (Negative); Urine Blood Negative (Negative); Urine Color Yellow; Urine Glucose Negative (Negative); Urine Ketones Trace (Negative); Urine Nitrite Negative (Negative); Urine Protein Negative (Negative); Urine Specific Gravity 1.019 (1.010-1.030); Urine Urobilinogen Negative (Negative)
[2018-10-10 10:36] LABS: Barbiturates Urine Screen None Detected (None Detect); Benzodiazepine Urine Screen None Detected (None Detect); Urine Cannabinoids Screen None Detected (None Detect)
[2018-10-10] MEDS: LORazepam TAB(*) 1 MG PO SCH ×3 (10:47→18:19)
[2018-10-10] MEDS: Nicotine GUM* 2 MG PO PRN ×2 (10:59→19:54)
[2018-10-10] MEDS: Nicotine Inhaler* 10 MG AMP INH PRN ×2 (10:59→19:53)
[2018-10-10] MEDS: DULoxetine DR CAP* 60 MG CAP.DR PO SCH ×2 (14:20→21:00)
[2018-10-10] MEDS: Gabapentin CAP(*) 400 MG PO SCH ×2 (14:20→21:00)
[2018-10-10] MEDS: Nicotine PATCH 21 MG/24 HR* PATCH TRANSDERM SCH (14:21)
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
[2018-10-10] MEDS: Lidocaine PATCH 5%* 1 PATCH TRANSDERM PRN (18:00)
[2018-10-10] MEDS: Acetaminophen TAB* 325 MG PO PRN (19:51)
[2018-10-10] MEDS: traZODone TAB* 100 MG PO SCH (21:01)
[2018-10-10] MEDS: QUEtiapine XR TAB* 300 MG PO SCH (21:01)
[2018-10-10] MEDS: Nicotine Patch Removal NOTE FOLLOW UP SCH (21:35)
[2018-10-11 07:30] LABS: HDL Cholesterol 87.7 mg/dL
[2018-10-11] MEDS: Thiamine TAB* 100 MG TAB PO SCH (10:03)
[2018-10-11] MEDS: Multivitamins/Minerals TAB PO SCH (10:03)
[2018-10-11] MEDS: Folic Acid TAB* 1 MG PO SCH (10:03)
[2018-10-11] MEDS: Gabapentin CAP(*) 400 MG PO SCH ×3 (10:03→20:36)
[2018-10-11] MEDS: DULoxetine DR CAP* 60 MG CAP.DR PO SCH ×2 (10:03→20:36)
[2018-10-11] MEDS: Nicotine PATCH 21 MG/24 HR* PATCH TRANSDERM SCH (10:06)
[2018-10-11] MEDS: Acetaminophen TAB* 325 MG PO PRN ×2 (12:03→20:38)
[2018-10-11] MEDS: LORazepam TAB(*) 1 MG PO SCH ×2 (12:52→23:19)
--- NOTE | 2018-10-11 13:54 | PN ---
Subjective - Subjective Date of Service: 10/11/18 Service Type: 35126 Hosp care 25 min moderate complexity Subjective: Patient lying in bed, pleasant upon approach. She presents as dysphoric with restricted affect. We discuss use of naltrexone for alcohol use d/o. She is informed of danger of using alcohol with this medication and states understanding. She has been attending 1-2 groups per shift. Patient reports desire to continue stabilization on BSU. She is actively scoring on WAM. She denies side effects from medication changes. Objective - General Observations Appearance: Disheveled Appears Stated Age: No - slighlty older Stature: WNL Posture: Slumped Eye Contact: Average Behavior/Activity: Slowed - Interaction Observations Attitude Towards Examiner: Cooperative Stated Mood: Dysphoric Affect: Restricted Speech Pattern/Tone: Clear, Appropriate, Normal Volume Thought Process: Impoverished Perception: WNL Thought Content: Depressive Thought Process: Lethality: Passive Wish Hallucination Type: None Delusion Type: None - Cognitive Function Orientation: A&O x 4 Level of Consciousness: Alert Cognition: WNL Estimated Intelligence: Normal Insight: WNL Judgment Within Normal Limits: No Ability to Make Reasonable Decisions: Moderately Impaired - Medication Compliance Cooperative with Inpatient Medication Regimen: Yes - Group Participation Participates in Group Activities: Partial Assessment - Assessment Merits Inpatient Hospitalization: For Immediate Safety, For Stabilization, For Ongoing Evaluation Inpatient DSM-V Dx: F33.2 Clinical Impression: 43yo wf, domiciled, disabled with history of MDD, PTSD and alcohol dependence. This is the fourth lifetime inpatient psychiatric admission since the suicides of her partner of 17years and her son within months of each other. She has a history of sobriety prior to these events and since then has had difficulty with alcohol dependence. She reports nonadherence to outpatient appointments and medications; minimizes alcohol use. She continues to score on WAM and merits hospitalization for immediate safety and stabilization. Plan - Plan Treatment Plan: Name: RUMA SAM Birthdate: 1975 [id number] continue acute intensive psychiatric treatment. may decrease to q30min observation. add naltrexone 50mg po daily for alcohol use d/o. continue WAM. may use petroleum jelly topical for psoriasis. Continued Medication Management: Start Medication Medications: Current Medications Acetaminophen (Tylenol Tab*) 650 mg PO Q4H PRN PRN Reason: for pain; or Temp >101 F Last Admin: 10/11/18 12:03 Dose: 650 mg Al Hydrox/Mg Hydrox/Simethicone (Maalox Plus*) 30 ml PO Q4H PRN PRN Reason: INDIGESTION Albuterol (Ventolin Hfa Inhaler*) 2 puff INH Q4H PRN PRN Reason: WHEEZING Device (Nicotine Mouth Piece*) 1 each INH .USE W/ CARTRIDGE PRN PRN Reason: WITHDRAWAL - NICOTINE Last Admin: 10/10/18 10:59 Dose: 1 each Duloxetine HCl (Cymbalta Cap*) 60 mg PO BID [facility] Last Admin: 10/11/18 10:03 Dose: 60 mg Folic Acid (Folvite Tab*) 1 mg PO DAILY [facility] Last Admin: 10/11/18 10:03 Dose: 1 mg Gabapentin (Neurontin Cap(*)) 800 mg PO TID [facility] Last Admin: 10/11/18 10:03 Dose: 800 mg Hydroxyzine HCl (Atarax Tab*) 50 mg PO Q4H PRN PRN Reason: ANXIETY Lidocaine (Lidoderm 5% Patch*) 1 patch TRANSDERM DAILY PRN PRN Reason: PAIN Last Admin: 10/10/18 18:00 Dose: 1 patch Lorazepam (Ativan Tab(*)) 0 - 6 mg PO .PER [place] PROTOCOL [facility]; Protocol Last Admin: 10/11/18 12:52 Dose: 2 mg Multivitamins/Minerals (Theragran/Minerals Tab*) 1 tab PO DAILY [facility] Last Admin: 10/11/18 10:03 Dose: 1 tab Naltrexone HCl (Naltrexone Tab*) 50 mg PO DAILY [facility]; Protocol Nicotine (Nicotine Inhaler*) 10 mg INH Q2H PRN PRN Reason: CRAVING Last Admin: 10/10/18 19:53 Dose: 10 mg Nicotine (Nicotine Patch 21 Mg/24 Hr*) 1 patch TRANSDERM DAILY [facility] Last Admin: 10/11/18 10:06 Dose: 1 patch Nicotine Polacrilex (Nicotine Gum*) 2 mg PO Q2H PRN PRN Reason: CRAVING Last Admin: 10/10/18 19:54 Dose: 2 mg Pharmacy Profile Note (Nicotine Patch Removal Note*) 1 note FOLLOW UP 2100 [facility] Last Admin: 10/10/18 21:35 Dose: Not Given Quetiapine Fumarate (Seroquel Xr Tab*) 300 mg PO BEDTIME [facility] Last Admin: 10/10/18 21:01 Dose: 300 mg Thiamine HCl (Vitamin B-1 Tab*) 100 mg PO DAILY [facility] Last Admin: 10/11/18 10:03 Dose: 100 mg Trazodone HCl (Desyrel Tab*) 100 mg PO BEDTIME [facility] Last Admin: 10/10/18 21:01 Dose: 100 mg - Discharge Plan Discharge Plan: Inpatient Hospitalization
[2018-10-11] MEDS: Naltrexone TAB* 50 MG TAB PO SCH (14:03)
[2018-10-11] MEDS: hydrOXYzine HCL TAB* 50 MG PO PRN (16:01)
[2018-10-11] MEDS: QUEtiapine XR TAB* 300 MG PO SCH (20:35)
[2018-10-11] MEDS: traZODone TAB* 100 MG PO SCH (20:36)
[2018-10-11] MEDS: Nicotine Patch Removal NOTE FOLLOW UP SCH (20:37)
[2018-10-12] MEDS: DULoxetine DR CAP* 60 MG CAP.DR PO SCH ×2 (08:44→20:14)
[2018-10-12] MEDS: Folic Acid TAB* 1 MG PO SCH (08:44)
[2018-10-12] MEDS: Thiamine TAB* 100 MG TAB PO SCH (08:44)
[2018-10-12] MEDS: Multivitamins/Minerals TAB PO SCH (08:44)
[2018-10-12] MEDS: Gabapentin CAP(*) 400 MG PO SCH ×3 (08:44→20:14)
[2018-10-12] MEDS: Nicotine PATCH 21 MG/24 HR* PATCH TRANSDERM SCH (08:45)
[2018-10-12] MEDS: Naltrexone TAB* 50 MG TAB PO SCH (08:45)
[2018-10-12] MEDS: Lidocaine PATCH 5%* 1 PATCH TRANSDERM PRN (08:46)
[2018-10-12] MEDS: hydrOXYzine HCL TAB* 50 MG PO PRN (12:30)
[2018-10-12] MEDS: Acetaminophen TAB* 325 MG PO PRN (12:30)
[2018-10-12] MEDS: LORazepam TAB(*) 1 MG PO SCH (14:06)
[2018-10-12] MEDS: Cyclobenzaprine TAB* 10 MG PO PRN ×2 (14:49→20:15)
--- NOTE | 2018-10-12 14:50 | PN ---
Subjective - Subjective Date of Service: 10/12/18 Service Type: 94517 Hosp care 15 min low complexity Subjective: Patient presents with brighter affect and is more talkative. She continues to score on WAM. Patient reports severe generalized pain due to arthritis and reports severe neck and head pain due to cervical pathology. She declines offer of PT consult, stating she has been in PT in the past and simply needs to do the exercises she has been taught. She reports improved mood and exhibits improved insight into alcohol abuse. Objective - General Observations Appearance: Disheveled Appears Stated Age: Yes Stature: WNL Posture: Slumped Eye Contact: Average Behavior/Activity: WNL - Interaction Observations Attitude Towards Examiner: Cooperative Stated Mood: Euthymic Affect: Full Speech Pattern/Tone: Clear, Appropriate, Normal Volume Thought Process: Coherent, Goal Directed Perception: WNL Thought Content: WNL Hallucination Type: None Delusion Type: None - Cognitive Function Orientation: A&O x 4 Level of Consciousness: Alert Cognition: WNL Estimated Intelligence: Normal Insight: WNL Judgment Within Normal Limits: Yes Ability to Make Reasonable Decisions: Mildly Impaired - Medication Compliance Cooperative with Inpatient Medication Regimen: Yes - Group Participation Participates in Group Activities: Partial Assessment - Assessment Inpatient DSM-V Dx: F33.2 Clinical Impression: 43yo wf, domiciled, disabled with history of MDD, PTSD and alcohol dependence. This is the fourth lifetime inpatient psychiatric admission since the suicides of her partner of 17years and her son within months of each other. She has a history of sobriety prior to these events and since then has had difficulty with alcohol dependence. She reports nonadherence to outpatient appointments and medications; minimizes alcohol use. She continues to score on WAM and merits hospitalization for immediate safety and stabilization. Plan - Plan Treatment Plan: Name: RUMA SAM Birthdate: 1975 [id number] continue acute intensive psychiatric treatment. may decrease to q30min observation. may allow staff pass. add flexeril 10mg TID prn for neck strain/pain. continue WAM. may use petroleum jelly topical for psoriasis. discharge planning to include outpatient referrals for substance use tx and case management. Continued Medication Management: Start Medication Medications: Current Medications Acetaminophen (Tylenol Tab*) 650 mg PO Q4H PRN PRN Reason: for pain; or Temp >101 F Last Admin: 10/12/18 12:30 Dose: 650 mg Al Hydrox/Mg Hydrox/Simethicone (Maalox Plus*) 30 ml PO Q4H PRN PRN Reason: INDIGESTION Albuterol (Ventolin Hfa Inhaler*) 2 puff INH Q4H PRN PRN Reason: WHEEZING Cyclobenzaprine HCl (Flexeril Tab*) 10 mg PO TID PRN PRN Reason: PAIN Device (Nicotine Mouth Piece*) 1 each INH .USE W/ CARTRIDGE PRN PRN Reason: WITHDRAWAL - NICOTINE Last Admin: 10/10/18 10:59 Dose: 1 each Duloxetine HCl (Cymbalta Cap*) 60 mg PO BID [facility] Last Admin: 10/12/18 08:44 Dose: 60 mg Folic Acid (Folvite Tab*) 1 mg PO DAILY [facility] Last Admin: 10/12/18 08:44 Dose: 1 mg Gabapentin (Neurontin Cap(*)) 800 mg PO TID [facility] Last Admin: 10/12/18 14:06 Dose: 800 mg Hydroxyzine HCl (Atarax Tab*) 50 mg PO Q4H PRN PRN Reason: ANXIETY Last Admin: 10/12/18 12:30 Dose: 50 mg Lidocaine (Lidoderm 5% Patch*) 1 patch TRANSDERM DAILY PRN PRN Reason: PAIN Last Admin: 10/12/18 08:46 Dose: 1 patch Lorazepam (Ativan Tab(*)) 0 - [address] [facility] PROTOCOL [facility]; Protocol Last Admin: 10/12/18 14:06 Dose: 2 mg Multivitamins/Minerals (Theragran/Minerals Tab*) 1 tab PO DAILY [facility] Last Admin: 10/12/18 08:44 Dose: 1 tab Naltrexone HCl (Naltrexone Tab*) 50 mg PO DAILY [facility]; Protocol Last Admin: 10/12/18 08:45 Dose: 50 mg Nicotine (Nicotine Inhaler*) 10 mg INH Q2H PRN PRN Reason: CRAVING Last Admin: 10/10/18 19:53 Dose: 10 mg Nicotine (Nicotine Patch 21 Mg/24 Hr*) 1 patch TRANSDERM DAILY [facility] Last Admin: 10/12/18 08:45 Dose: 1 patch Nicotine Polacrilex (Nicotine Gum*) 2 mg PO Q2H PRN PRN Reason: CRAVING Last Admin: 10/10/18 19:54 Dose: 2 mg Pharmacy Profile Note (Nicotine Patch Removal Note*) 1 note FOLLOW UP 2100 [facility] Last Admin: 10/11/18 20:37 Dose: 1 note Quetiapine Fumarate (Seroquel Xr Tab*) 300 mg PO BEDTIME [facility] Last Admin: 10/11/18 20:35 Dose: 300 mg Thiamine HCl (Vitamin B-1 Tab*) 100 mg PO DAILY [facility] Last Admin: 10/12/18 08:44 Dose: 100 mg Trazodone HCl (Desyrel Tab*) 100 mg PO BEDTIME [facility] Last Admin: 10/11/18 20:36 Dose: 100 mg - Discharge Plan Discharge Plan: Inpatient Hospitalization Outpatient Program: [facility]
[2018-10-12] MEDS: Nicotine GUM* 2 MG PO PRN (18:32)
[2018-10-12] MEDS: Nicotine Inhaler* 10 MG AMP INH PRN (18:32)
[2018-10-12] MEDS: QUEtiapine XR TAB* 300 MG PO SCH (20:15)
[2018-10-12] MEDS: traZODone TAB* 100 MG PO SCH (20:15)
[2018-10-12] MEDS: Nicotine Patch Removal NOTE FOLLOW UP SCH (20:28)
[2018-10-13] MEDS: LORazepam TAB(*) 1 MG PO SCH (03:12)
[2018-10-13] MEDS: Gabapentin CAP(*) 400 MG PO SCH ×3 (08:03→20:25)
[2018-10-13] MEDS: Thiamine TAB* 100 MG TAB PO SCH (08:04)
[2018-10-13] MEDS: Folic Acid TAB* 1 MG PO SCH (08:04)
[2018-10-13] MEDS: Cyclobenzaprine TAB* 10 MG PO PRN ×2 (08:04→13:00)
[2018-10-13] MEDS: Naltrexone TAB* 50 MG TAB PO SCH (08:04)
[2018-10-13] MEDS: Multivitamins/Minerals TAB PO SCH (08:04)
[2018-10-13] MEDS: Nicotine PATCH 21 MG/24 HR* PATCH TRANSDERM SCH (08:04)
[2018-10-13] MEDS: DULoxetine DR CAP* 60 MG CAP.DR PO SCH ×2 (08:04→20:26)
[2018-10-13] MEDS: hydrOXYzine HCL TAB* 50 MG PO PRN ×3 (10:56→22:23)
[2018-10-13] MEDS: Acetaminophen TAB* 325 MG PO PRN ×2 (10:56→16:59)
[2018-10-13] MEDS: QUEtiapine XR TAB* 300 MG PO SCH (20:27)
[2018-10-13] MEDS: traZODone TAB* 100 MG PO SCH (20:27)
[2018-10-13] MEDS: Lidocaine PATCH 5%* 1 PATCH TRANSDERM PRN (20:28)
[2018-10-13] MEDS: Nicotine Patch Removal NOTE FOLLOW UP SCH (20:35)
[2018-10-14] MEDS: Acetaminophen TAB* 325 MG PO PRN ×2 (02:30→13:41)
[2018-10-14] MEDS: LORazepam TAB(*) 1 MG PO SCH ×3 (02:30→17:04)
[2018-10-14] MEDS: Cyclobenzaprine TAB* 10 MG PO PRN ×2 (07:59→20:50)
[2018-10-14] MEDS: Thiamine TAB* 100 MG TAB PO SCH (08:00)
[2018-10-14] MEDS: Naltrexone TAB* 50 MG TAB PO SCH (08:00)
[2018-10-14] MEDS: DULoxetine DR CAP* 60 MG CAP.DR PO SCH ×2 (08:00→20:49)
[2018-10-14] MEDS: Folic Acid TAB* 1 MG PO SCH (08:00)
[2018-10-14] MEDS: Gabapentin CAP(*) 400 MG PO SCH ×3 (08:00→20:49)
[2018-10-14] MEDS: Multivitamins/Minerals TAB PO SCH (08:00)
[2018-10-14] MEDS: Nicotine PATCH 21 MG/24 HR* PATCH TRANSDERM SCH (08:01)
[2018-10-14] MEDS: hydrOXYzine HCL TAB* 50 MG PO PRN (12:48)
[2018-10-14] MEDS: Nicotine GUM* 2 MG PO PRN (14:04)
--- NOTE | 2018-10-14 19:16 | PN ---
Subjective - Subjective Date of Service: 10/14/18 Service Type: 04174 Hosp care 15 min low complexity Subjective: Ruma appears to be improving well and didn't have any complaints. Mood remains sad and her affect is visibly restricted. Otherwise keeping her hopes and spirits up she says. Coping with loses well. Objective - General Observations Appearance: Well Groomed Appears Stated Age: Yes Stature: WNL Posture: WNL Eye Contact: Average Behavior/Activity: WNL - Interaction Observations Attitude Towards Examiner: Cooperative Stated Mood: Dysphoric Affect: Restricted Speech Pattern/Tone: Clear, Appropriate, Normal Volume Perception: WNL Thought Content: WNL Delusion Type: None - Cognitive Function Orientation: A&O x 4 Level of Consciousness: Alert Cognition: WNL Estimated Intelligence: Normal Judgment Within Normal Limits: Yes Ability to Make Reasonable Decisions: Mildly Impaired - Medication Compliance Cooperative with Inpatient Medication Regimen: Yes Assessment - Assessment Merits Inpatient Hospitalization: For Stabilization, Pending Safe DC Plan Inpatient DSM-V Dx: F33.2 Clinical Impression: 43yo wf, domiciled, disabled with history of MDD, PTSD and alcohol dependence. This is the fourth lifetime inpatient psychiatric admission since the suicides of her partner of 17years and her son within months of each other. She has a history of sobriety prior to these events and since then has had difficulty with alcohol dependence. She reports nonadherence to outpatient appointments and medications; minimizes alcohol use. She continues to score on WAM and merits hospitalization for immediate safety and stabilization. Plan - Plan Treatment Plan: Name: RUMA SAM Birthdate: 1975 [id number] continue acute intensive psychiatric treatment. may decrease to q30min observation. may allow staff pass. add flexeril 10mg TID prn for neck strain/pain. continue WAM. may use petroleum jelly topical for psoriasis. discharge planning to include outpatient referrals for substance use tx and case management. Continued Medication Management: Continue Outpt Medication Medications: Current Medications Acetaminophen (Tylenol Tab*) 650 mg PO Q4H PRN PRN Reason: for pain; or Temp >101 F Last Admin: 10/14/18 13:41 Dose: 650 mg Al Hydrox/Mg Hydrox/Simethicone (Maalox Plus*) 30 ml PO Q4H PRN PRN Reason: INDIGESTION Albuterol (Ventolin Hfa Inhaler*) 2 puff INH Q4H PRN PRN Reason: WHEEZING Cyclobenzaprine HCl (Flexeril Tab*) 10 mg PO TID PRN PRN Reason: PAIN Last Admin: 10/14/18 07:59 Dose: 10 mg Device (Nicotine Mouth Piece*) 1 each INH .USE W/ CARTRIDGE PRN PRN Reason: WITHDRAWAL - NICOTINE Last Admin: 10/10/18 10:59 Dose: 1 each Duloxetine HCl (Cymbalta Cap*) 60 mg PO BID [facility] Last Admin: 10/14/18 08:00 Dose: 60 mg Folic Acid (Folvite Tab*) 1 mg PO DAILY [facility] Last Admin: 10/14/18 08:00 Dose: 1 mg Gabapentin (Neurontin Cap(*)) 800 mg PO TID [facility] Last Admin: 10/14/18 13:40 Dose: 800 mg Hydroxyzine HCl (Atarax Tab*) 50 mg PO Q4H PRN PRN Reason: ANXIETY Last Admin: 10/14/18 12:48 Dose: 50 mg Lidocaine (Lidoderm 5% Patch*) 1 patch TRANSDERM DAILY PRN PRN Reason: PAIN Last Admin: 10/13/18 20:28 Dose: 1 patch Lorazepam (Ativan Tab(*)) 0 - 6 mg PO .PER [facility] PROTOCOL [facility]; Protocol Last Admin: 10/14/18 17:04 Dose: 2 mg Multivitamins/Minerals (Theragran/Minerals Tab*) 1 tab PO DAILY [facility] Last Admin: 10/14/18 08:00 Dose: 1 tab Naltrexone HCl (Naltrexone Tab*) 50 mg PO DAILY [facility]; Protocol Last Admin: 10/14/18 08:00 Dose: 50 mg Nicotine (Nicotine Inhaler*) 10 mg INH Q2H PRN PRN Reason: CRAVING Last Admin: 10/12/18 18:32 Dose: 10 mg Nicotine (Nicotine Patch 21 Mg/24 Hr*) 1 patch TRANSDERM DAILY [facility] Last Admin: 10/14/18 08:01 Dose: 1 patch Nicotine Polacrilex (Nicotine Gum*) 2 mg PO Q2H PRN PRN Reason: CRAVING Last Admin: 10/14/18 14:04 Dose: 2 mg Pharmacy Profile Note (Nicotine Patch Removal Note*) 1 note FOLLOW UP 2100 [facility] Last Admin: 10/13/18 20:35 Dose: 1 note Quetiapine Fumarate (Seroquel Xr Tab*) 300 mg PO BEDTIME [facility] Last Admin: 10/13/18 20:27 Dose: 300 mg Thiamine HCl (Vitamin B-1 Tab*) 100 mg PO DAILY [facility] Last Admin: 10/14/18 08:00 Dose: 100 mg Trazodone HCl (Desyrel Tab*) 100 mg PO BEDTIME [facility] Last Admin: 10/13/18 20:27 Dose: 100 mg - Discharge Plan Discharge Plan: Drug/Alcohol Rehab
[2018-10-14] MEDS: traZODone TAB* 100 MG PO SCH (20:49)
[2018-10-14] MEDS: QUEtiapine XR TAB* 300 MG PO SCH (20:49)
[2018-10-14] MEDS: Nicotine Patch Removal NOTE FOLLOW UP SCH (20:55)
[2018-10-15] MEDS: Cyclobenzaprine TAB* 10 MG PO PRN ×2 (02:20→09:01)
[2018-10-15] MEDS: LORazepam TAB(*) 1 MG PO SCH ×2 (02:20→17:49)
[2018-10-15] MEDS: Nicotine PATCH 21 MG/24 HR* PATCH TRANSDERM SCH (08:04)
[2018-10-15] MEDS: Gabapentin CAP(*) 400 MG PO SCH ×3 (08:04→20:18)
[2018-10-15] MEDS: DULoxetine DR CAP* 60 MG CAP.DR PO SCH ×2 (08:05→20:19)
[2018-10-15] MEDS: Folic Acid TAB* 1 MG PO SCH (08:05)
[2018-10-15] MEDS: Thiamine TAB* 100 MG TAB PO SCH (08:05)
[2018-10-15] MEDS: Multivitamins/Minerals TAB PO SCH (08:05)
[2018-10-15] MEDS: Naltrexone TAB* 50 MG TAB PO SCH (08:05)
[2018-10-15] MEDS: Acetaminophen TAB* 325 MG PO PRN ×2 (08:07→17:50)
[2018-10-15 08:30] VITALS: BP 105/65
--- NOTE | 2018-10-15 11:34 | PN ---
Subjective - Subjective Date of Service: 10/15/18 Service Type: 34900 Hosp care 15 min low complexity Subjective: Patient continues to score on WAM protocol. Buttonhole Maker notifies her of concern of discharge during withdrawal process. Patient appears frustrated and states "then I won't take it [lorazepam] if they offer it to me." She is encouraged to assess withdrawal symptoms without lorazepam. Buttonhole Maker validates frustration of not being discharged and encourages patient to identify unpleasant emotions to work through them. Per staff, there is suspicion that she was smoking in her bathroom. Objective - General Observations Appearance: Well Groomed Stature: WNL Posture: WNL Eye Contact: Average Behavior/Activity: WNL - Interaction Observations Attitude Towards Examiner: Dismissive Stated Mood: Irritable Affect: Restricted Speech Pattern/Tone: Quiet Volume Thought Process: Coherent Perception: WNL Thought Content: WNL Hallucination Type: Denies Delusion Type: Denies - Cognitive Function Orientation: A&O x 4 Level of Consciousness: Alert Cognition: WNL Estimated Intelligence: Normal Insight: Difficulty Acknowledging Presence of Psyciatric Problems Judgment Within Normal Limits: No Ability to Make Reasonable Decisions: Moderately Impaired - Medication Compliance Cooperative with Inpatient Medication Regimen: Yes - Group Participation Participates in Group Activities: Partial Assessment - Assessment Merits Inpatient Hospitalization: For Immediate Safety, For Stabilization Inpatient DSM-V Dx: F33.2 Clinical Impression: 43yo wf, domiciled, disabled with history of MDD, PTSD and alcohol dependence. This is the fourth lifetime inpatient psychiatric admission since the suicides of her partner of 17years and her son within months of each other. She has a history of sobriety prior to these events and since then has had difficulty with alcohol dependence. She reports nonadherence to outpatient appointments and medications; minimizes alcohol use. She continues to score on WAM and merits hospitalization for immediate safety and stabilization. Plan - Plan Treatment Plan: Name: RUMA SAM Birthdate: 1975 [id number] continue acute intensive psychiatric treatment. may decrease to q30min observation. may allow staff pass. continue WAM. may use petroleum jelly topical for psoriasis. discharge planning to include outpatient referrals for substance use tx and case management. Medications: Current Medications Acetaminophen (Tylenol Tab*) 650 mg PO Q4H PRN PRN Reason: for pain; or Temp >101 F Last Admin: 10/15/18 08:07 Dose: 650 mg Al Hydrox/Mg Hydrox/Simethicone (Maalox Plus*) 30 ml PO Q4H PRN PRN Reason: INDIGESTION Albuterol (Ventolin Hfa Inhaler*) 2 puff INH Q4H PRN PRN Reason: WHEEZING Cyclobenzaprine HCl (Flexeril Tab*) 10 mg PO TID PRN PRN Reason: PAIN Last Admin: 10/15/18 09:01 Dose: 10 mg Device (Nicotine Mouth Piece*) 1 each INH .USE W/ CARTRIDGE PRN PRN Reason: WITHDRAWAL - NICOTINE Last Admin: 10/10/18 10:59 Dose: 1 each Duloxetine HCl (Cymbalta Cap*) 60 mg PO BID [facility] Last Admin: 10/15/18 08:05 Dose: 60 mg Folic Acid (Folvite Tab*) 1 mg PO DAILY [facility] Last Admin: 10/15/18 08:05 Dose: 1 mg Gabapentin (Neurontin Cap(*)) 800 mg PO TID [facility] Last Admin: 10/15/18 08:04 Dose: 800 mg Hydroxyzine HCl (Atarax Tab*) 50 mg PO Q4H PRN PRN Reason: ANXIETY Last Admin: 10/14/18 12:48 Dose: 50 mg Lidocaine (Lidoderm 5% Patch*) 1 patch TRANSDERM DAILY PRN PRN Reason: PAIN Last Admin: 10/13/18 20:28 Dose: 1 patch Lorazepam (Ativan Tab(*)) 0 - 6 mg PO .PER [facility] PROTOCOL [facility]; Protocol Last Admin: 10/15/18 02:20 Dose: 2 mg Multivitamins/Minerals (Theragran/Minerals Tab*) 1 tab PO DAILY [facility] Last Admin: 10/15/18 08:05 Dose: 1 tab Naltrexone HCl (Naltrexone Tab*) 50 mg PO DAILY [facility]; Protocol Last Admin: 10/15/18 08:05 Dose: 50 mg Nicotine (Nicotine Inhaler*) 10 mg INH Q2H PRN PRN Reason: CRAVING Last Admin: 10/12/18 18:32 Dose: 10 mg Nicotine (Nicotine Patch 21 Mg/24 Hr*) 1 patch TRANSDERM DAILY [facility] Last Admin: 10/15/18 08:04 Dose: Not Given Nicotine Polacrilex (Nicotine Gum*) 2 mg PO Q2H PRN PRN Reason: CRAVING Last Admin: 10/14/18 14:04 Dose: 2 mg Pharmacy Profile Note (Nicotine Patch Removal Note*) 1 note FOLLOW UP 2100 [facility] Last Admin: 10/14/18 20:55 Dose: 1 note Quetiapine Fumarate (Seroquel Xr Tab*) 300 mg PO BEDTIME [facility] Last Admin: 10/14/18 20:49 Dose: 300 mg Thiamine HCl (Vitamin B-1 Tab*) 100 mg PO DAILY [facility] Last Admin: 10/15/18 08:05 Dose: 100 mg Trazodone HCl (Desyrel Tab*) 100 mg PO BEDTIME [facility] Last Admin: 10/14/18 20:49 Dose: 100 mg - Discharge Plan Discharge Plan: Inpatient Hospitalization Outpatient Program: [facility]
[2018-10-15] MEDS: hydrOXYzine HCL TAB* 50 MG PO PRN (12:58)
[2018-10-15] MEDS: QUEtiapine XR TAB* 300 MG PO SCH (20:20)
[2018-10-15] MEDS: traZODone TAB* 100 MG PO SCH (20:20)
[2018-10-15] MEDS: Nicotine Patch Removal NOTE FOLLOW UP SCH (20:21)
[2018-10-16] MEDS: Gabapentin CAP(*) 400 MG PO SCH (08:02)
[2018-10-16] MEDS: Naltrexone TAB* 50 MG TAB PO SCH (08:03)
[2018-10-16] MEDS: Multivitamins/Minerals TAB PO SCH (08:03)
[2018-10-16] MEDS: DULoxetine DR CAP* 60 MG CAP.DR PO SCH (08:03)
[2018-10-16] MEDS: Folic Acid TAB* 1 MG PO SCH (08:03)
[2018-10-16] MEDS: Nicotine PATCH 21 MG/24 HR* PATCH TRANSDERM SCH (08:03)
[2018-10-16] MEDS: Thiamine TAB* 100 MG TAB PO SCH (08:03)
[2018-10-16] MEDS: Cyclobenzaprine TAB* 10 MG PO PRN (08:04)
[2018-10-16] MEDS: hydrOXYzine HCL TAB* 50 MG PO PRN (08:04)
[2018-10-16] MEDS: Lidocaine PATCH 5%* 1 PATCH TRANSDERM PRN (08:05)
[2018-10-16] MEDS: Acetaminophen TAB* 325 MG PO PRN (08:59)
--- NOTE | 2018-10-16 10:32 | DCNOTE ---
Subjective - Subjective Service Types: [address] [facility] Day Mgmt simple under 30 min Discharge Date: 10/16/18 Subjective: Patient has successfully detoxed from alcohol. She reports readiness to return home. We discuss presentation during hospitalization and strong recommendation to follow up with appointments. Audio Director encourages patient to prioritize her physical and mental health. We discuss unpleasant emotions and coping with such. She denies SI or passive wish. She reports liking the AA meetings she attended during hospitalization and desire to continue with AA in the area. Objective - Appearance Appearance: Well Developed/Nourished Dysmorphic Features: No Hygiene: Normal Grooming: Well Kept - Behavior Psychomotor Activities: Normal Exhibits Abnormal Movement: No - Attitude and Relatedness Attitude and Relatedness: Cooperative Eye Contact: Good - Speech Quality: Unpressured Latencies: Normal Quantity: Appropriate - Mood Patient's Decription of Mood: "Okay" - Affect Observed Affect: Good Affect Consistent with: Euthymia - Thought Process Patient's Thought Process: Coherent, Goal Directed Thought Content: No Passive Wish, No Suicidal Planning, No Homicidal Ideation, No Paranoid Ideation - Sensorium Experiencing Hallucinations: No, Sensorium is Clear Type of Hallucinations: Visual: No, Auditory: No, Command: No - Level of Consciousness Level of Consciousness: Alert Orientation: Yes Intact, Yes Orientated to Time, Yes Orientated to Place, Yes Orientated to Person - Impulse Control Impulse Control: Intact - Insight and Judgement Insight and Judgement: Fair DC Assessment - Assessment Clinical Impression: 43yo wf, domiciled, disabled with history of MDD, PTSD and alcohol dependence. This is the fourth lifetime inpatient psychiatric admission since the suicides of her partner of 17years and her son within months of each other. She has a history of sobriety prior to these events and since then has had difficulty with alcohol dependence. She reports nonadherence to outpatient appointments and medications; minimizes alcohol use. She successfully detoxed from alcohol and participated in programming. Merits Inpatient Hospitalization: No Clear for Discharge: Adequate Clinical Respons, Acceptable Safety Profile Inpatient DSM-V Dx: F33.2 Discharge Planning - Discharge Planning Discharge Plan: Outpatient Follow Up Outpatient Program: [facility] [place] Recommendations for Continuing Care: Medication Management, Psychotherapy, Substance Abuse Counseling, Primary Care Followup Medications: Current Medications Albuterol (Ventolin Hfa Inhaler*) 2 puff INH Q4H PRN PRN Reason: WHEEZING Cyclobenzaprine HCl (Flexeril Tab*) 10 mg PO TID PRN PRN Reason: PAIN Last Admin: 10/16/18 08:04 Dose: 10 mg Duloxetine HCl (Cymbalta Cap*) 60 mg PO BID [facility] Last Admin: 10/16/18 08:03 Dose: 60 mg Gabapentin (Neurontin Cap(*)) 800 mg PO TID [facility] Last Admin: 10/16/18 08:02 Dose: 800 mg Hydroxyzine HCl (Atarax Tab*) 50 mg PO Q4H PRN PRN Reason: ANXIETY Last Admin: 10/16/18 08:04 Dose: 50 mg Lidocaine (Lidoderm 5% Patch*) 1 patch TRANSDERM DAILY PRN PRN Reason: PAIN Last Admin: 10/16/18 08:05 Dose: 1 patch Naltrexone HCl (Naltrexone Tab*) 50 mg PO DAILY [facility]; Protocol Last Admin: 10/16/18 08:03 Dose: 50 mg Quetiapine Fumarate (Seroquel Xr Tab*) 300 mg PO BEDTIME [facility] Last Admin: 10/15/18 20:20 Dose: 300 mg Trazodone HCl (Desyrel Tab*) 100 mg PO BEDTIME [facility] Last Admin: 10/15/18 20:20 Dose: 100 mg Discharge Planning: Prescriptions provided for discharge [x] Yes [] No Follow up care details as per social work arrangements: PCP appointment with Dr. Jade on October 17 at 1:00PM. Dr. Steel on October 18 at 2:00PM at [facility] [place]: appointment on October 24 at 1:30 with Masood Sheridan. [facility]: appointment with Junior on October 26 at 11:00AM Patient response to discharge plan: [x] eager for discharge [x] agreeable with discharge plan [] ambivalent about discharge [] disagrees with discharge today
--- NOTE | 2018-10-17 04:11 | DS ---
CC: Dr. Jade, [facility]; [facility]; [facility] [place] * DISCHARGE SUMMARY: DATE OF ADMISSION: 10/10/18 DATE OF DISCHARGE: 10/16/18 SUPERVISING PSYCHIATRIST: Dr. Marcos Thomson.* (DICTATED BY ELBA SHARMA NP) DIAGNOSES: Major depressive disorder, recurrent, severe without psychotic features; posttraumatic stress disorder; alcohol use disorder; tobacco use disorder. CONDITION AT TIME OF DISCHARGE: Improved. Patient is euthymic with full range of affect. She has successfully detoxed from alcohol and expresses readiness to return home. We discussed presentation during hospitalization and strong recommendation to follow up with scheduled appointments. Power Equipment Technology Instructor encourages patient to prioritize her physical and mental health. We discussed unpleasant emotions and coping with such. She denies SI or passive wish. She reports liking the AA meetings she attended during hospitalization and a desire to continue with AA in the area. MENTAL STATUS EXAM: Johanna is a 43-year-old white female, well groomed, who presents as stated age. She is casually dressed in her own clothing and walks about with a walker from our unit. She sits with erect posture when discussing discharge planning with blog writer. She is alert and oriented x3. Eye contact is intermittent. Speech is soft, articulate, and spontaneous. Mood is euthymic with full range of affect. No abnormal psychomotor activity noted. Thought process is circumstantial, logical, and coherent. Thought content is negative for SI, HI, or passive wish. She denies auditory or visual hallucinations. There are no perceptual disturbances noted. Insight and judgment are fair. Fund of knowledge is adequate. INSTRUCTIONS GIVEN TO PATIENT: A. Medications: 1. Albuterol 2 puffs inhaled q.4 hours p.r.n. for wheezing. 2. Cyclobenzaprine 10 mg p.o. t.i.d. p.r.n. for back pain. 3. Duloxetine 60 mg p.o. b.i.d. 4. Gabapentin 800 mg p.o. t.i.d. 5. Hydroxyzine 50 mg p.o. q.4 hours p.r.n. for anxiety. 6. Lidocaine patch 1 daily for 12 hours. 7. Naltrexone 50 mg p.o. daily. 8. Quetiapine XR 300 mg p.o. q.h.s. 9. Trazodone 100 mg at bedtime. The above prescriptions were electronically sent for a 1-week supply as she has a followup with primary care tomorrow. B. Diet is regular. C. Activity: Ambulation as tolerated. Tobacco cessation was declined by patient. There are no pending labs or diagnostic studies. D: Followup care: The patient was given appointments at [facility] to meet with Dr. Steel on , 10/18/18, and with her therapist, Junior, on 10/26/18. She was referred for substance use treatment to the [facility] [place] with an appointment on 10/24/18 and she was given an appointment for primary care with Dr. Jade tomorrow, Monday, . E: Substance use followup: As above, [facility] [place] and the patient agreed to naltrexone for alcohol use disorder. HOSPITAL COURSE: Part A: Reason for Admission: The patient presented to the emergency department on the evening of 10/09/18 via ambulance requesting admission to mental health unit. She had not been taking prescribed medications and was drinking daily, although she minimized alcohol intake. History of Present Illness: This is the fourth psychiatric hospitalization for a 43-year-old single, domiciled, medically disabled white female with a history of PTSD and alcohol dependence. Her most recent hospitalization was in August 2017. The patient has a history of sobriety for 8 years until the suicide of her boyfriend in January 2017 led to relapse. Since that time, she has had difficulty abstaining from alcohol and maintaining on mental health medications. Unfortunately, shortly after the January 2017 suicide of her long- term partner, her son hung himself in July 2017. We saw her in August after his suicide. Since that time, she has been a client at [facility] with poor adherence. She sees Junior and Dr. Steel. The patient reports last May, she moved to her own apartment through the [place] [employer] and appreciates living on her own. She states that she has friends in the apartment complex and attends a lunch program in [place]. Otherwise, she is primarily isolated and spends much time watching television. She reports decreased motivation, hopelessness, and helplessness. She reports excessive guilt. She states that she either sleeps a lot or not at all. She denies having nightmares or flashbacks. She reports a pattern of worsening depression every couple of months. She states that there have been 2 episodes since her last admission where she had lots of energy for a couple of days at a time. She states that she got many projects done, but continued to sleep 6 to 8 hours at night. She denies auditory or visual hallucinations. She reports frequent handwashing and does not tolerate dust in her home. She denies other obsessions or compulsions. She denies intrusive thoughts or phobias. The patient states she is anxious in public areas and traveling via bus; these are barriers to attending appointments. She is tearful when discussing her son's and boyfriend/Juan's suicide. She is wearing a sweatshirt with Jeff/her son's photo on it. I recalled that she wore this sweatshirt throughout the hospitalization last year as well. The patient states she went to [facility] a couple of times and just "sat there and cried." Otherwise, she is having difficulty with denominational. Last admission, she reported a desire to follow up with the pain clinic, but did not do so, per the patient. She endorses passive wish. She denies suicide attempts. She denies HI or . Part B: Psychiatric treatment rendered. The patient was admitted to adult behavioral services unit on voluntary status. Her code status was full. She was placed on 15-minute checks for her safety. We monitored her for alcohol withdrawal and she continued to score on the WAM protocol up until the day before discharge. We increased duloxetine to 60 mg p.o. b.i.d. to better target depression and anxiety. As stated above, the patient accepted offer of naltrexone p.o. for alcohol use disorder. We discussed the risk of drinking with this medication and that she would likely not feel intoxicated, but would be physically so. The patient was relatively participatory, especially after the first 2 days of admission. She attended some groups; otherwise, was seclusive to her room. She reported a desire to be discharged on Monday; however, due to her continuing to score on WAM, I was not comfortable with discharging her that day. As we were discussing this in treatment team, it turns out that the patient had been given her belongings to her by staff and took this opportunity to take a couple of puffs of a cigarette in her room. The patient was notified of change in discharge date by one day due to continued symptoms of alcohol withdrawal and cravings. Her impulsive behavior of smoking a cigarette was also indicative that it would have been in poor judgment to discharge her that day. The patient was encouraged to identify emotions about not being discharged and to work through those with staff. She attended AA meeting that night as well on the unit. The following day, we discussed the above and the patient stated understanding of blog writer's rationale. Again, she was encouraged to continue to prioritize her physical and mental health and to follow through on appointments set up for her. The patient was discharged to home. Her friend, sAh, was here to give her a ride. ELBA SHARMA, ИРИНА [id number]/CPS #: [id number] HAR[place]
== END 2018-10-16 11:00 | disposition home or self-care (01) | DRG 751 ==
LOC: ED 19:32 → BSU 10-10 09:44
PROVIDERS: ADMIT Psychiatry & Neurology Psychiatry; ATTEND Psychiatry & Neurology Psychiatry
DX: F33.2 Major depressive disorder, recurrent severe without psychotic features (principal); F43.10 Post-traumatic stress disorder, unspecified; Y90.9 Presence of alcohol in blood, level not specified; J45.909 Unspecified asthma, uncomplicated; K76.0 Fatty (change of) liver, not elsewhere classified; I10 Essential (primary) hypertension; F10.229 Alcohol dependence with intoxication, unspecified; F19.94 Other psychoactive substance use, unspecified with psychoactive substance-induced mood disorder; F41.0 Panic disorder [episodic paroxysmal anxiety]; F17.210 Nicotine dependence, cigarettes, uncomplicated; Z56.0 Unemployment, unspecified; Z88.8 Allergy status to other drugs, medicaments and biological substances; Z91.048 Other nonmedicinal substance allergy status; Z81.1 Family history of alcohol abuse and dependence; Z91.410 Personal history of adult physical and sexual abuse
CPT/HCPCS: 36415; 80053; 80061; 80307; 80320; 80329; 81003; 83036; 84443; 84702; 85025; 99222; 99231; 99232; 99238; 99284; A9270-GY; G0480

== ENCOUNTER 2019-02-08 21:51 | Emergency (ER) | payer MEDICAID ==
[2019-02-08] MEDS ORDERED: Lorazepam PYXIS KEY PRN (22:18)
[2019-02-08] MEDS ORDERED: LORazepam INJ* 2 MG/ML 1 ML VIAL IV PUSH ONE (22:18)
[2019-02-08] MEDS ORDERED: NS 0.9% 1000 ML** 1,000 ML IV ONE (22:18)
[2019-02-08 22:41] LABS: Hematocrit 43 % (35-47); Hemoglobin 14.4 g/dL (12.0-16.0); Mean Corpuscular HGB Conc 34 g/dL (31-36); Mean Corpuscular Hemoglobin 32 pg (27-31); Mean Corpuscular Volume 94 fL (80-97); Mean Platelet Volume 7.8 fL (7.4-10.4); Platelet Count 290 10^3/uL (150-450); Red Blood Count 4.54 10^6 /uL (3.70-4.87); Red Cell Distribution Width 20 % (10-15)
[2019-02-08 22:49] LABS: ABS Basophils 0.1 10^3/ul (0-0.2); ABS Lymphocytes 3.5 10^3/ul (1.0-4.8); ABS Monocytes 0.4 10^3/ul (0-0.8); ABS Neutrophils 2.1 10^3/ul (1.5-7.7)
[2019-02-08 22:52] LABS: INR 0.91 (0.82-1.09)
[2019-02-08 22:59] LABS: ALT 25 U/L (7-52); AST 44 U/L (13-39); Albumin 4.1 g/dL (3.2-5.2); Albumin/Globulin Ratio 1.2 (1-3); Alkaline Phosphatase 89 U/L (34-104); Anion Gap 15 mmol/L (2-11); BUN/Creatinine Ratio 20.9 (8-20); Blood Urea Nitrogen 9 mg/dL (6-24); CO2 Carbon Dioxide 24 mmol/L (22-32); Calcium 8.8 mg/dL (8.6-10.3); Chloride 103 mmol/L (101-111); EGFR African American 192.1 (>60); EGFR Non-African American 158.8 (>60); Globulin 3.4 g/dL (2-4); Glucose 82 mg/dL (70-100); Potassium 3.7 mmol/L (3.5-5.0); Sodium 142 mmol/L (135-145); Total Protein 7.5 g/dL (6.4-8.9)
[2019-02-08 23:05] LABS: HCG Pregnancy < 0.60 mIU/mL
[2019-02-08 23:23] LABS: Eosinophil % 0.4 %; Lymphocyte % 57.7 %; Nucleated Red Blood Cells % 0.1
--- NOTE | 2019-02-09 00:57 | ED ---
GI/ HPI - HPI Summary HPI Summary: 43-year-old female presents with vaginal bleeding for the past couple days. She states she had not had her period for past 3 months. States she is concerned that she is . States she is passing a lot of clots. She is an alcoholic. Last drink was 3 hours ago. Has history of DTs and is concerned that may go into such. She denies any nausea vomiting. No diarrhea constipation. No urinary symptoms. - History of Current Complaint Chief Complaint: EDVaginalBleeding Time Seen by Provider: 02/08/19 22:06 Stated Complaint: VAGINAL BLEED PER EMS Pain Intensity: 8 - Additional Pertinent History Primary Care Physician: [id number] - Allergy/Home Medications Allergies/Adverse Reactions: Allergies Allergy/AdvReac Type Severity Reaction Status Date / Time Adhesive Tape [Paper Tape] Allergy Itching Verified 10/09/18 23:13 pregabalin [From Lyrica] Allergy Swelling Verified 10/09/18 23:13 PMH/Surg Hx/FS Hx/Imm Hx Endocrine/Hematology History: Reports: Hx Thyroid Disease - Pt states she used to take thyroid medication Denies: Hx Diabetes Cardiovascular History: Denies: Hx Hypertension, Hx Pacemaker/ICD Respiratory History: Reports: Hx Asthma GI History: Reports: Other GI Disorders - hx of fatty liver disease Musculoskeletal History: Reports: Hx Back Problems, Other Musculoskeletal History - hx of degenerative disc disease Sensory History: Reports: Hx Contacts or Glasses Denies: Hx Hearing Aid Opthamlomology History: Reports: Hx Contacts or Glasses Neurological History: Reports: Hx Seizures - d/t etoh withdrawal 7 years ago Psychiatric History: Reports: Hx Anxiety, Hx Depression, Hx Inpatient Treatment , Hx Community Mental Health Tx, Hx Substance Abuse Denies: Hx Eating Disorder, Hx Panic Disorder, Hx of Violent Episodes Against Others - Surgical History Surgery Procedure, Year, and Place: 07/03 &05/03 [facility] SURGERY X2. [facility] FUSION 2013. - Immunization History Date of Tetanus Vaccine: utd Date of Influenza Vaccine: none Immunizations Up to Date: Yes Infectious Disease History: No Infectious Disease History: Denies: Hx of Known/Suspected MRSA, Traveled Outside the [place] in Last 30 Days - Family History Known Family History: Positive: Other Negative: Diabetes Family History: alcoholism, SI - Social History Alcohol Use: Daily Alcohol Amount: 1.75 L vodka Hx Substance Use: No Substance Use Type: Reports: None Substance Use Comment - Amount & Last Used: Pt denies marijuana use anymore d/t contract w/ pain clinic Hx Tobacco Use: Yes Smoking Status (MU): Heavy Every Day Tobacco Smoker Type: Cigarettes Amount Used/How Often: states she smokes 1 PPD Have You Smoked in the Last Year: Yes Review of Systems Negative: Fever Negative: Chest Pain Negative: Shortness Of Breath Positive: Abdominal Pain, Other - vaginal bleeding All Other Systems Reviewed And Are Negative: Yes Physical Exam Triage Information Reviewed: Yes Vital Signs On Initial Exam: Initial Vitals Temp Pulse Resp BP Pulse Ox 97.9 F 81 17 115/81 97 02/08/19 21:59 02/08/19 21:59 02/08/19 21:59 02/08/19 21:59 02/08/19 21:59 Vital Signs Reviewed: Yes Appearance: Positive: Well-Appearing Skin: Positive: Warm, Dry Head/Face: Positive: Normal Head/Face Inspection Eyes: Positive: Normal, Conjunctiva Clear ENT: Positive: Pharynx normal Respiratory/Lung Sounds: Positive: Clear to Auscultation, Breath Sounds Present Cardiovascular: Positive: Normal, RRR Abdomen Description: Positive: Soft, Other: - tenderness in LLQ, no rebound Bowel Sounds: Positive: Present Musculoskeletal: Positive: Normal Neurological: Positive: Normal Psychiatric: Positive: Normal Diagnostics - Vital Signs Vital Signs Temp Pulse Resp BP Pulse Ox 02/08/19 23:08 19 02/08/19 23:00 19 02/08/19 22:59 86 17 119/81 92 02/08/19 22:33 86 20 116/79 93 02/08/19 22:01 81 16 95 02/08/19 21:59 97.9 F 81 17 115/81 98 - Laboratory Lab Results: Lab Results 02/08/19 02/08/19 02/08/19 Range/Units 22:21 22:21 22:22 WBC 6.0 (3.5-10.8) 10^3/uL RBC 4.54 (3.70-4.87) 10^6 /uL Hgb 14.4 (12.0-16.0) g/dL Hct 43 (35-47) % MCV 94 (80-97) fL MCH 32 H (27-31) pg MCHC 34 (31-36) g/dL RDW 20 H (10-15) % Plt Count 290 (150-450) 10^3/uL MPV 7.8 (7.4-10.4) fL Neut % (Auto) 34.4 % Lymph % (Auto) 57.7 % [place] % (Auto) 6.5 % Eos % (Auto) 0.4 % Baso % (Auto) 1.0 % Absolute Neuts (auto) 2.1 (1.5-7.7) 10^3/ul Absolute Lymphs (auto) 3.5 (1.0-4.8) 10^3/ul Absolute Monos (auto) 0.4 (0-0.8) 10^3/ul Absolute Eos (auto) 0.0 (0-0.6) 10^3/ul Absolute Basos (auto) 0.1 (0-0.2) 10^3/ul Absolute Nucleated RBC 0.0 10^3/ul Nucleated RBC % 0.1 INR (Anticoag Therapy) 0.91 (0.82-1.09) Sodium 142 (135-145) mmol/L Potassium 3.7 (3.5-5.0) mmol/L Chloride 103 (101-111) mmol/L Carbon Dioxide 24 (22-32) mmol/L Anion Gap 15 H (2-11) mmol/L BUN 9 (6-24) mg/dL Creatinine 0.43 L (0.51-0.95) mg/dL Est GFR ( Amer) 192.1 (>60) Est GFR (Non-Af Amer) 158.8 (>60) BUN/Creatinine Ratio 20.9 H (8-20) Glucose 82 (70-100) mg/dL Calcium 8.8 (8.6-10.3) mg/dL Total Bilirubin 0.30 (0.2-1.0) mg/dL AST 44 H (13-39) U/L ALT 25 (7-52) U/L Alkaline Phosphatase 89 (34-104) U/L Total Protein 7.5 (6.4-8.9) g/dL Albumin 4.1 (3.2-5.2) g/dL Globulin 3.4 (2-4) g/dL Albumin/Globulin Ratio 1.2 (1-3) Beta HCG, Quant < 0.60 mIU/mL Serum Alcohol (<10) mg/dL Blood Type Antibody Screen 02/08/19 02/08/19 Range/Units 22:23 22:23 WBC (3.5-10.8) 10^3/uL RBC (3.70-4.87) 10^6 /uL Hgb (12.0-16.0) g/dL Hct (35-47) % MCV (80-97) fL MCH (27-31) pg MCHC (31-36) g/dL RDW (10-15) % Plt Count (150-450) 10^3/uL MPV (7.4-10.4) fL Neut % (Auto) % Lymph % (Auto) % [place] % (Auto) % Eos % (Auto) % Baso % (Auto) % Absolute Neuts (auto) (1.5-7.7) 10^3/ul Absolute Lymphs (auto) (1.0-4.8) 10^3/ul Absolute Monos (auto) (0-0.8) 10^3/ul Absolute Eos (auto) (0-0.6) 10^3/ul Absolute Basos (auto) (0-0.2) 10^3/ul Absolute Nucleated RBC 10^3/ul Nucleated RBC % INR (Anticoag Therapy) (0.82-1.09) Sodium (135-145) mmol/L Potassium (3.5-5.0) mmol/L Chloride (101-111) mmol/L Carbon Dioxide (22-32) mmol/L Anion Gap (2-11) mmol/L BUN (6-24) mg/dL Creatinine (0.51-0.95) mg/dL Est GFR ( Amer) (>60) Est GFR (Non-Af Amer) (>60) BUN/Creatinine Ratio (8-20) Glucose (70-100) mg/dL Calcium (8.6-10.3) mg/dL Total Bilirubin (0.2-1.0) mg/dL AST (13-39) U/L ALT (7-52) U/L Alkaline Phosphatase (34-104) U/L Total Protein (6.4-8.9) g/dL Albumin (3.2-5.2) g/dL Globulin (2-4) g/dL Albumin/Globulin Ratio (1-3) Beta HCG, Quant mIU/mL Serum Alcohol 335 H (<10) mg/dL Blood Type A Positive Antibody Screen Negative Result Diagrams: 02/08/19 22:21 02/08/19 22:22 Lab Statement: Any lab studies that have been ordered have been reviewed, and results considered in the medical decision making process. - Ultrasound No standard instances Ultrasound Interpretation Completed By: Radiologist Summary of Ultrasound Findings: IMPRESSION: 3.3 x 3 x 3.5 cm right ovarian cyst containing low level internal echoes. Left ovary is obscured by bowel gas. Re-Evaluation - Re-Evaluation First Eval Re-Evaluation Time: 00:55 Change: Improved Comment: feeling better GIGU Course/Dx - Course Course Of Treatment: 43-year-old female presents with vaginal bleeding for the past couple days. She states she had not had her period for past 3 months. States she is concerned that she is . States she is passing a lot of clots. She is an alcoholic. Last drink was 3 hours ago. Has history of DTs and is concerned that may go into such. She denies any nausea vomiting. No diarrhea constipation. No urinary symptoms. On exam has mild tenderness in left lower quadrant. No rebound. Patient does not appear comfortable. Has some tremors noted. Gave dosed Ativan to prevent DTs from occurring. HCG is negative. Patient is not anemic. Ultrasound shows a right ovarian cyst. Discuss with patient that due to smoking can not start control. bleeding is likely her normal period. Told to take ibuprofen for pain. told follow up with steam shovel operator. Patient understands agrees plan. - Diagnoses Differential Diagnoses - Female: Ovarian Cyst, , Urinary Tract Infection Provider Diagnoses: Vaginal bleeding, Abdominal pain Discharge - Sign-Out/Discharge Documenting (check all that apply): Patient Departure Patient Received Moderate/Deep Sedation with Procedure: No - Discharge Plan Condition: Good Disposition: HOME Patient Education Materials: Dysfunctional Uterine Bleeding (ED) Referrals: Yasmany HERNANDEZ,Saul Freeman [Primary Care Provider] - Xochitl Perez MD [Medical Doctor] - Additional Instructions: take ibuprofen every 6 hours for pain and bleeding drink plenty of fluids Follow up with steam shovel operator Return to ED if develop any new or worsening symptoms - Billing Disposition and Condition Condition: GOOD Disposition: Home
[2019-02-09 01:18] VITALS: BP 127/84
== END 2019-02-09 01:18 | disposition home or self-care (01) ==
LOC: ED 21:51
DX: N93.9 Abnormal uterine and vaginal bleeding, unspecified (principal); R10.9 Unspecified abdominal pain; E07.9 Disorder of thyroid, unspecified; J45.909 Unspecified asthma, uncomplicated; F41.9 Anxiety disorder, unspecified; F32.9 Major depressive disorder, single episode, unspecified; F17.210 Nicotine dependence, cigarettes, uncomplicated; Z88.6 Allergy status to analgesic agent; Z91.048 Other nonmedicinal substance allergy status
CPT/HCPCS: 36415; 76830; 80053; 80320; 84702; 85025; 85610; 86850; 86900; 86901; 96361; 96374; 99284; G0480; J2060

== ENCOUNTER 2019-03-02 18:16 | Emergency (ER) | payer MEDICAID ==
[2019-03-02] MEDS ORDERED: NS 0.9% 1000 ML** 1,000 ML IV ONE (18:28)
[2019-03-02 18:44] LABS: ABS Lymphocytes 2.9 10^3/ul (1.0-4.8); ABS Monocytes 0.6 10^3/ul (0-0.8); ABS Neutrophils 2.1 10^3/ul (1.5-7.7); Eosinophil % 0.2 %; Hematocrit 42 % (35-47); Hemoglobin 14.5 g/dL (12.0-16.0); Lymphocyte % 52.1 %; Mean Corpuscular HGB Conc 34 g/dL (31-36); Mean Corpuscular Hemoglobin 33 pg (27-31); Mean Corpuscular Volume 96 fL (80-97); Mean Platelet Volume 6.9 fL (7.4-10.4); Nucleated Red Blood Cells % 0.1; Platelet Count 273 10^3/uL (150-450); Red Blood Count 4.44 10^6 /uL (3.70-4.87); Red Cell Distribution Width 21 % (10-15); White Blood Count 5.6 10^3/uL (3.5-10.8)
[2019-03-02 18:45] LABS: Urine Appearance Cloudy; Urine Bilirubin Negative (Negative); Urine Blood Negative (Negative); Urine Color Yellow; Urine Glucose Negative (Negative); Urine Ketones 1+ (Negative); Urine Nitrite Negative (Negative); Urine Protein Negative (Negative); Urine Urobilinogen Negative (Negative)
[2019-03-02 18:49] LABS: INR 0.92 (0.82-1.09)
[2019-03-02 18:59] LABS: Urine Benzodiazepine Screen None Detected (None Detect); Urine Opiates Screen None Detected (None Detect)
--- NOTE | 2019-03-02 19:04 | ED ---
Complex/Multi-Sys Presentation - HPI Summary HPI Summary: Patient is a 43 y/o F presenting to ED with complaints of RUQ abdominal pain and bilateral leg weakness. She also claims that she had a fever, but on vitals , temp is 98.3 F. She reports onset of Sx yesterday, 03/01/19. N/V/D are denied. RUQ pain radiates to her LUQ. Patient describes herself as an alcoholic. She states that she is unsure how much alcohol she consumed today but claims that she last drank in the morning. Patient notes that she has rashes to her arms, legs, and backside. PMHx of fatty liver disease, psorasis is reported. Patient denies being in contact with anyone with a rash but notes that she recently stayed in a motel. PMHx of carpal tunnel is endorsed. She states that she is scheduled for neck surgery. Patient has not taken any medications for her Sx. PMHx of anxiety, patient has not taken her anxiety medications today as she does not take them when she consumes alcohol. Home medications and allergies are reviewed. - History Of Current Complaint Chief Complaint: EDAbdPain Time Seen by Provider: 03/02/19 18:21 Hx Obtained From: Patient Onset/Duration: Lasting Days - onset yesterday, 03/01/19 Timing: Days - onset yesterday, 03/01/19 Location: Pain At: - abdomen Associated Signs And Symptoms: Positive: Weakness - bilateral leg weakness, Abdominal Pain, Fever - reported, on vitals, temp is 98.3 F, Other - positive - alcohol consumption. Negative: Nausea, Vomiting, Diarrhea - Allergies/Home Medications Allergies/Adverse Reactions: Allergies Allergy/AdvReac Type Severity Reaction Status Date / Time Adhesive Tape [Paper Tape] Allergy Itching Verified 03/02/19 18:22 pregabalin [From Lyrica] Allergy Swelling Verified 03/02/19 18:22 PMH/Surg Hx/FS Hx/Imm Hx Endocrine/Hematology History: Reports: Hx Thyroid Disease - Pt states she used to take thyroid medication Denies: Hx Diabetes Cardiovascular History: Denies: Hx Hypertension, Hx Pacemaker/ICD Respiratory History: Reports: Hx Asthma GI History: Reports: Other GI Disorders - hx of fatty liver disease Musculoskeletal History: Reports: Hx Back Problems, Other Musculoskeletal History - hx of degenerative disc disease Sensory History: Reports: Hx Contacts or Glasses Denies: Hx Hearing Aid Opthamlomology History: Reports: Hx Contacts or Glasses Neurological History: Reports: Hx Seizures - d/t etoh withdrawal 7 years ago Psychiatric History: Reports: Hx Anxiety, Hx Depression, Hx Inpatient Treatment , Hx Community Mental Health Tx, Hx Substance Abuse Denies: Hx Eating Disorder, Hx Panic Disorder, Hx of Violent Episodes Against Others - Surgical History Surgery Procedure, Year, and Place: 07/03 &05/03 [facility] SURGERY X2. [facility] FUSION 2013. - Immunization History Date of Tetanus Vaccine: utd Date of Influenza Vaccine: none Infectious Disease History: No Infectious Disease History: Denies: Hx of Known/Suspected MRSA, Traveled Outside the [place] in Last 30 Days - Family History Known Family History: Positive: Other Negative: Diabetes Family History: alcoholism, SI - Social History Alcohol Use: Daily Alcohol Amount: 1.75 L vodka Hx Substance Use: No Substance Use Type: Reports: None Substance Use Comment - Amount & Last Used: Pt denies marijuana use anymore d/t contract w/ pain clinic Hx Tobacco Use: Yes Smoking Status (MU): Heavy Every Day Tobacco Smoker Type: Cigarettes Amount Used/How Often: states she smokes 1 PPD Have You Smoked in the Last Year: Yes Review of Systems Constitutional: Other - positive - alcohol consumption Positive: Fever - reported, on vitals, temp is 98.3 F Positive: Abdominal Pain. Negative: Vomiting, Diarrhea, Nausea Positive: Weakness - legs All Other Systems Reviewed And Are Negative: Yes Physical Exam - Summary Physical Exam Summary: General: Well-developed, Well-nourished female. No acute distress. Patient smells of alcohol and cigarette smoke. HEENT: Normocephalic, Atraumatic. Patient has rhythmic movement of the head. Eyes: conjuctiva normal, PERRL. Ears: TMs within normal limits. Nares: (-) discharge, (-) erythema. Oropharynx: clear, mucous membranes moist, (-) exudates. Neck: soft, FROM, (-) lymphadenopathy, (-) thyromegaly, (-) JVD. Cardiovascular: normal sinus rhythm, (-) murmur. Respiratory: clear to auscultation bilaterally (-) wheezes, (-) rales, (-) rhonchi. Abdomen: soft, non-tender, non-distended, (-) organomegaly, normal bowel sounds. Neuro: Alert and oriented x3, no focal deficits. Extremities: no edema. Skin: Small erythematous papules distributed on her arms, legs, and back. There are none on her hands, no bugs seen. Warm, dry, (-) rash. Psychiatric: mood normal, affect normal. Triage Information Reviewed: Yes Vital Signs On Initial Exam: Initial Vitals Temp Pulse Resp BP Pulse Ox 98.3 F 106 18 140/72 94 03/02/19 18:18 03/02/19 18:18 03/02/19 18:18 03/02/19 18:18 03/02/19 18:18 Vital Signs Reviewed: Yes Diagnostics - Vital Signs Vital Signs Temp Pulse Resp BP Pulse Ox 03/02/19 18:23 111 95 03/02/19 18:20 102 140/72 95 03/02/19 18:18 98.3 F 106 18 140/72 94 - Laboratory Lab Results: Lab Results 03/02/19 03/02/19 03/02/19 Range/Units 18:30 18:37 18:37 WBC 5.6 (3.5-10.8) 10^3/uL RBC 4.44 (3.70-4.87) 10^6 /uL Hgb 14.5 (12.0-16.0) g/dL Hct 42 (35-47) % MCV 96 (80-97) fL MCH 33 H (27-31) pg MCHC 34 (31-36) g/dL RDW 21 H (10-15) % Plt Count 273 (150-450) 10^3/uL MPV 6.9 L (7.4-10.4) fL Neut % (Auto) 37.4 % Lymph % (Auto) 52.1 % [place] % (Auto) 9.8 % Eos % (Auto) 0.2 % Baso % (Auto) 0.5 % Absolute Neuts (auto) 2.1 (1.5-7.7) 10^3/ul Absolute Lymphs (auto) 2.9 (1.0-4.8) 10^3/ul Absolute Monos (auto) 0.6 (0-0.8) 10^3/ul Absolute Eos (auto) 0.0 (0-0.6) 10^3/ul Absolute Basos (auto) 0.0 (0-0.2) 10^3/ul Absolute Nucleated RBC 0.0 10^3/ul Nucleated RBC % 0.1 INR (Anticoag Therapy) 0.92 (0.82-1.09) Urine Color Yellow Urine Appearance Cloudy Urine pH 5.0 (5-9) Ur Specific Hext 1.010 (1.010-1.030) Urine Protein Negative (Negative) Urine Ketones 1+ A (Negative) Urine Blood Negative (Negative) Urine Nitrate Negative (Negative) Urine Bilirubin Negative (Negative) Urine Urobilinogen Negative (Negative) Ur Leukocyte Esterase Negative (Negative) Urine Glucose Negative (Negative) Result Diagrams: 03/02/19 18:37 03/02/19 18:37 Lab Statement: Any lab studies that have been ordered have been reviewed, and results considered in the medical decision making process. Re-Evaluation - Re-Evaluation First Eval Re-Evaluation Time: 20:30 Comment: Patient wants to go home. She states that she has someone who can come pick her up and give her a safe ride from ED. Second Eval Re-Evaluation Time: 21:49 Change: Improved Comment: Patient reports improvement in Sx after being given medications. Results were discussed with the patient as well as Sx that would warrant return to ED. Patient has a sober adult that will accompany her home. Complex Multi-Symp Course/Dx Course Of Treatment: Patient is a 43 y/o F presenting to ED with complaints of RUQ abdominal pain and bilateral leg weakness. Patient describes herself as an alcoholic. She states that she is unsure how much alcohol she consumed today but claims that she last drank in the morning. Patient notes that she has rashes to her arms, legs, and backside. Small erythematous papules distributed on her arms, legs, and back. There are none on her hands, no bugs seen. Bloodwork was obtained. Abnormal values include MCH 33, RDW 21, MPV 6.9, carbon dioxide 20, anion gap 18, AST 187, ALT 93, amylase 27, lipase 10. Beta hCG was negative. UA showed 1+ ketones. Serum alcohol was 371. Patient was given fluids and thiamine. Patient reports improvement in Sx after being given medications. Results were discussed with the patient as well as Sx that would warrant return to ED. Patient has a sober adult that will accompany her home. - Diagnoses Provider Diagnoses: Acute alcohol intoxication, Abdominal pain Discharge ED - Sign-Out/Discharge Documenting (check all that apply): Patient Departure - discharge Patient Received Moderate/Deep Sedation with Procedure: No - Discharge Plan Condition: Stable Disposition: HOME Patient Education Materials: Alcohol Intoxication (ED), Abdominal Pain (ED) Referrals: Yasmany HERNANDEZ,Saul Freeman [Primary Care Provider] - 3 Days Additional Instructions: Please follow up with your primary care physician within three days. Please return to ED for any new or worsening symptoms. - Billing Disposition and Condition Condition: STABLE Disposition: Home - Attestation Statements Document Initiated by Claraibe: Yes Documenting Scribe: JACKY COLLADO Provider For Whom Murali is Documenting (Include Credential): SANDY ELLIOTT MD Scribe Attestation: JACKY Hamilton, scribed for SANDY ELLIOTT MD on 03/02/19 at 8125. Scribe Documentation Reviewed: Yes Provider Attestation: The documentation as recorded by the JACKY delgado accurately reflects the service I personally performed and the decisions made by me, SANDY ELLIOTT MD Status of Scribe Document: Viewed
[2019-03-02] MEDS ORDERED: Thiamine INJ* 100 MG, Folic Acid IV* 1 MG, Multiple Vitamin IV ADULT* 10 ML in NS 0.9% ... IV ONE (19:08)
[2019-03-02 19:13] LABS: ALT 93 U/L (7-52); AST 187 U/L (13-39); Albumin 4.1 g/dL (3.2-5.2); Albumin/Globulin Ratio 1.2 (1-3); Alkaline Phosphatase 104 U/L (34-104); Amylase 27 U/L (29-103); Anion Gap 18 mmol/L (2-11); BUN/Creatinine Ratio 18.9 (8-20); Blood Urea Nitrogen 10 mg/dL (6-24); CO2 Carbon Dioxide 20 mmol/L (22-32); Calcium 8.8 mg/dL (8.6-10.3); Chloride 105 mmol/L (101-111); EGFR African American 150.9 (>60); EGFR Non-African American 124.7 (>60); Globulin 3.5 g/dL (2-4); Glucose 80 mg/dL (70-100); Potassium 3.9 mmol/L (3.5-5.0); Sodium 143 mmol/L (135-145); Total Protein 7.6 g/dL (6.4-8.9)
[2019-03-02 19:19] LABS: HCG Pregnancy < 0.60 mIU/mL
[2019-03-02 22:35] VITALS: BP 143/89
== END 2019-03-02 22:45 | disposition home or self-care (01) ==
LOC: ED 18:16
DX: F10.929 Alcohol use, unspecified with intoxication, unspecified (principal); R10.9 Unspecified abdominal pain; F41.9 Anxiety disorder, unspecified; F32.9 Major depressive disorder, single episode, unspecified; F17.210 Nicotine dependence, cigarettes, uncomplicated; Z79.899 Other long term (current) drug therapy; Z88.8 Allergy status to other drugs, medicaments and biological substances
CPT/HCPCS: 36415; 80053; 80307; 80320; 81003; 82150; 83690; 84702; 85025; 85610; 96361; 96365; 96366; 99283; G0480; J3411

== ENCOUNTER 2021-01-18 22:22 | Inpatient (IN) ==
[2021-01-18] MEDS ORDERED: Ondansetron 4 mg VIAL 2 MG/ML 2 ml VIAL IV ONE (22:58)
[2021-01-18] MEDS ORDERED: NS 0.9% 1000 ml BAG 1,000 ML IV ONE (22:58)
[2021-01-18] MEDS ORDERED: Ondansetron ODT 4 mg TAB 4 MG TAB SL ONE (23:03)
[2021-01-19 01:58] LABS: ABS Lymphocytes 1.6 10^3/ul (1.0-4.8); ABS Monocytes 1.1 10^3/ul (0-0.8); ABS Neutrophils 11.6 10^3/ul (1.5-7.7); Hematocrit 49 % (35-47); Hemoglobin 16.4 g/dL (12.0-16.0); Lymphocyte % 11.4 %; Mean Corpuscular HGB Conc 33 g/dL (31-36); Mean Corpuscular Hemoglobin 35 pg (27-31); Mean Corpuscular Volume 104 fL (80-97); Nucleated Red Blood Cells % 0.1; Platelet Count 391 10^3/uL (150-450); Red Blood Count 4.75 10^6 /uL (3.70-4.87); Red Cell Distribution Width 15 % (10-15); White Blood Count 14.4 10^3/uL (3.5-10.8)
[2021-01-19 02:16] LABS: Albumin 3.9 g/dL (3.2-5.2); Calcium 8.7 mg/dL (8.6-10.3); Magnesium 1.7 mg/dL (1.9-2.7); Total Bilirubin 0.4 mg/dL (0.2-1.0)
[2021-01-19 02:22] LABS: Albumin/Globulin Ratio 1.2 (1-3); C Reactive Protein 3.38 mg/L (<8.01); EGFR African American 85.6 (>60); EGFR Non-African American 70.7 (>60); Globulin 3.2 g/dL (2-4); Total Protein 7.1 g/dL (6.4-8.9)
[2021-01-19 02:26] LABS: Potassium 4.9 mmol/L (3.5-5.0)
[2021-01-19 03:03] LABS: Venous Bicarbonate HCO3 11.1 mmol/L (24-28)
[2021-01-19] MEDS: Lactated Ringers 1000 ml BAG 1,000 ML IV SCH ×4 (03:03→16:00)
[2021-01-19 03:27] LABS: Urine Appearance Cloudy; Urine Bilirubin Negative (Negative); Urine Blood Negative (Negative); Urine Color Yellow; Urine Glucose Negative (Negative); Urine Ketones 1+ (Negative); Urine Nitrite Negative (Negative); Urine Protein 1+(30 mg/dL) (Negative); Urine Specific Gravity 1.014 (1.002-1.030); Urine Urobilinogen Negative (Negative)
[2021-01-19 03:40] LABS: Urine Bacteria 1+ (Absent); Urine Red Blood Cell 1+(3-5/hpf) (Absent); Urine Squamous Epithelial Cell Present (Absent); Urine White Blood Cell Trace(0-5/hpf) (Absent)
[2021-01-19 03:42] LABS: Urine Benzodiazepine Screen None Detected (None Detect); Urine Cannabinoids Screen None Detected (None Detect); Urine Opiates Screen None Detected (None Detect)
[2021-01-19 04:12] LABS: Calcium 7.8 mg/dL (8.6-10.3); Potassium 4.6 mmol/L (3.5-5.0)
[2021-01-19 04:18] LABS: EGFR African American 118.2 (>60); EGFR Non-African American 97.7 (>60)
[2021-01-19] MEDS ORDERED: Thiamine 100 MG/ML 2 ml VIAL (200 mg) IM ONE (04:25)
[2021-01-19] MEDS ORDERED: Lorazepam PYXIS KEY PRN ×2 (04:38→06:34)
[2021-01-19 06:26] LABS: Albumin 3.2 g/dL (3.2-5.2); Potassium 4.8 mmol/L (3.5-5.0); Total Bilirubin 0.5 mg/dL (0.2-1.0)
[2021-01-19 06:32] LABS: Albumin/Globulin Ratio 1.3 (1-3); EGFR African American 134.8 (>60); EGFR Non-African American 111.4 (>60); Globulin 2.5 g/dL (2-4); Total Protein 5.7 g/dL (6.4-8.9)
[2021-01-19] MEDS ORDERED: Ondansetron 4 mg VIAL 2 MG/ML 2 ml VIAL IV ONE (06:34)
[2021-01-19] MEDS ORDERED: LORazepam 2 mg VIAL 1 ml IV PUSH ONE (06:34)
[2021-01-19] MEDS: LORazepam 2 mg VIAL 1 ml IV PUSH SCH ×2 (08:48→22:18)
[2021-01-19] MEDS: Multivitamins/Minerals TAB PO SCH (09:38)
[2021-01-19 12:08] LABS: Phosphorus 2.5 mg/dL (2.5-5.0)
[2021-01-19 13:45] LABS: Magnesium 1.3 mg/dL (1.9-2.7)
[2021-01-19] MEDS ORDERED: Magnesium Sulf 4 GM/100 ML IV 4,000 MG/100 ML BAG IVPB ONE ×2 (14:07→19:50)
[2021-01-19] MEDS ORDERED: cefTRIAXone 1 gm/50 mL NS BAG 1 GM/50 ML BAG IV ONE (18:00)
[2021-01-19] MEDS: NS 0.9% 1000 ml BAG 1,000 ML IV SCH (19:55)
[2021-01-19 20:34] LABS: Calcium 8.1 mg/dL (8.6-10.3); EGFR African American 137.6 (>60); EGFR Non-African American 113.7 (>60); Potassium 4.7 mmol/L (3.5-5.0)
[2021-01-20] MEDS: LORazepam 2 mg VIAL 1 ml IV PUSH SCH ×3 (05:37→22:11)
[2021-01-20 06:16] LABS: Hematocrit 38 % (35-47); Hemoglobin 12.9 g/dL (12.0-16.0); Mean Corpuscular HGB Conc 34 g/dL (31-36); Mean Corpuscular Hemoglobin 34 pg (27-31); Mean Corpuscular Volume 100 fL (80-97); Mean Platelet Volume 8.1 fL (7.4-10.4); Platelet Count 219 10^3/uL (150-450); Red Blood Count 3.77 10^6 /uL (3.70-4.87); Red Cell Distribution Width 14 % (10-15); White Blood Count 7.9 10^3/uL (3.5-10.8)
[2021-01-20 06:34] LABS: Calcium 7.8 mg/dL (8.6-10.3); EGFR African American 152.9 (>60); EGFR Non-African American 126.4 (>60); Phosphorus 1.6 mg/dL (2.5-5.0); Potassium 3.5 mmol/L (3.5-5.0)
[2021-01-20] MEDS ORDERED: Potassium Phosphate IV 10 MMOLE in NS 0.9% 250 ml 250 ML IVPB ONE (07:06)
[2021-01-20] MEDS: NS 0.9% 1000 ml BAG 1,000 ML IV SCH (09:42)
[2021-01-20] MEDS: Multivitamins/Minerals TAB PO SCH (09:45)
[2021-01-20] MEDS ORDERED: Lorazepam PYXIS KEY PRN (16:31)
[2021-01-20] MEDS ORDERED: LORazepam 2 mg VIAL 1 ml IV PUSH ONE (16:33)
[2021-01-20] MEDS ORDERED: cefTRIAXone 1 gm/50 mL NS BAG 1 GM/50 ML BAG IVPB SCH (21:00)
[2021-01-21] MEDS ORDERED: Lorazepam PYXIS KEY PRN ×2 (00:26→04:03)
[2021-01-21] MEDS ORDERED: LORazepam 2 mg VIAL 1 ml IM ONE ×2 (00:26→04:03)
[2021-01-21] MEDS: LORazepam 2 mg VIAL 1 ml IM SCH ×7 (00:38→22:46)
[2021-01-21] MEDS ORDERED: LORazepam 2 mg VIAL 1 ml ONE (04:23)
[2021-01-21 09:56] LABS: Hematocrit 40 % (35-47); Hemoglobin 13.6 g/dL (12.0-16.0); Mean Corpuscular HGB Conc 34 g/dL (31-36); Mean Corpuscular Hemoglobin 34 pg (27-31); Mean Corpuscular Volume 100 fL (80-97); Mean Platelet Volume 8.1 fL (7.4-10.4); Platelet Count 191 10^3/uL (150-450); Red Blood Count 3.99 10^6 /uL (3.70-4.87); Red Cell Distribution Width 14 % (10-15)
[2021-01-21 10:08] LABS: Calcium 8.7 mg/dL (8.6-10.3); EGFR African American 219.6 (>60); EGFR Non-African American 181.5 (>60); Potassium 3.5 mmol/L (3.5-5.0)
[2021-01-21] MEDS: Multivitamins/Minerals TAB PO SCH (10:50)
[2021-01-21 10:51] LABS: Magnesium 1.7 mg/dL (1.9-2.7)
[2021-01-21] MEDS ORDERED: Magnesium Sulfate 2 gm BAG 2 GM/50 ML BAG IVPB ONE (11:35)
[2021-01-21] MEDS ORDERED: Nicotine Lozenge mini 2 MG LOZNG.MINI MT PRN (22:40)
[2021-01-22 06:47] LABS: Calcium 8.9 mg/dL (8.6-10.3); EGFR African American 190.4 (>60); EGFR Non-African American 157.4 (>60); Magnesium 1.8 mg/dL (1.9-2.7); Potassium 3.8 mmol/L (3.5-5.0)
[2021-01-22] MEDS: Multivitamins/Minerals TAB PO SCH (08:54)
[2021-01-22] MEDS ORDERED: Haloperidol 5 mg/ml SDV IV/IM 5 MG/ML AMP IM ONE (13:34)
[2021-01-23 06:39] LABS: EGFR African American 180.7 (>60); EGFR Non-African American 149.3 (>60); Magnesium 1.5 mg/dL (1.9-2.7); Potassium 3.7 mmol/L (3.5-5.0)
[2021-01-23] MEDS ORDERED: Magnesium Sulfate 2 gm BAG 2 GM/50 ML BAG IVPB ONE (06:52)
[2021-01-23] MEDS: Multivitamins/Minerals TAB PO SCH (08:30)
[2021-01-23 13:07] VITALS: BP 118/76
== END 2021-01-23 13:30 | disposition home or self-care (01) | DRG 775 ==
LOC: ED 22:22 → MEDTELE 01-19 04:21 → EDHOLD 01-19 04:57 → MEDTELE 01-19 14:23
PROVIDERS: ADMIT Pediatrics; ATTEND Internal Medicine